=== PATIENT | female | born 1955 | race Caucasian/White ===

== ENCOUNTER 2019-10-09 15:36 | Emergency (ER) | payer MEDICARE, MEDICAID ==
[~2019-10-09] VITALS: Ht 172.7 cm; Wt 100.3 kg
[~2019-10-09 15:36] MED LIST: FOLI1TAB16 PO; PANT-47 PO; PARO40TA PO; SUCR1TAB34 PO; THI100T PO; TRAZ-251 PO
[2019-10-09] MEDS ORDERED: ondansetron/PF 4mg/2ml inj IV ONE (16:20)
[2019-10-09] MEDS ORDERED: normal saline 1000ML IV soln IVB ONE (16:20)
[2019-10-09] MEDS ORDERED: folic acid 1mg/0.2ml inj IV ONE (16:25)
[2019-10-09] MEDS ORDERED: thiamine 100mg/ml 2ml inj. IV ONE (16:25)
[2019-10-09 16:46] LABS: BASOPHILS # (AUTO) 0.1 X10'3 (0-0.2); BASOPHILS % (AUTO) 1.4 % (0-1); EOSINOPHILS # (AUTO) 0.1 X10'3 (0-0.9); EOSINOPHILS % (AUTO) 1.9 % (0-6); HEMATOCRIT 47.4 % (35.0-45.0); HEMOGLOBIN 16.3 g/dl (12.0-16.0); LYMPHOCYTES # (AUTO) 2.4 X10'3 (1.1-4.8); LYMPHOCYTES % (AUTO) 44.3 % (21-51); MEAN CORPUSCULAR HEMOGLOBIN 32.1 PG (27.0-31.0); MEAN CORPUSCULAR HGB CONC 34.4 g/dL (33.0-36.5); MEAN CORPUSCULAR VOLUME 93.2 FL (78-98); MEAN PLATELET VOLUME 7.4 FL (7.4-10.4); MONOCYTES # (AUTO) 0.4 X10'3 (0-0.9); MONOCYTES % (AUTO) 7.2 % (2-12); NEUTROPHILS # (AUTO) 2.4 X10'3 (1.8-7.7); NEUTROPHILS % (AUTO) 45.2 % (42-75); PLATELET COUNT 241 X10'3 (140-440); RED BLOOD COUNT 5.08 X10'6 (4.20-5.60); RED CELL DISTRIBUTION WIDTH 13.3 % (11.5-14.5); WHITE BLOOD COUNT 5.3 X10'3 (4.5-11.0)
[2019-10-09 16:53] LABS: ALANINE AMINOTRANSFERASE 211 U/L (12-78); ALBUMIN 4.2 G/DL (3.4-5.0); ALBUMIN/GLOBULIN RATIO 1.2 (1.1-1.5); ALKALINE PHOSPHATASE 112 IU/L (46-116); ANION GAP 14 (8-16); ASPARTATE AMINO TRANSFERASE 137 U/L (10-37); BILIRUBIN,TOTAL 0.3 MG/DL (0.1-1.0); BLOOD UREA NITROGEN 9 MG/DL (7-18); BUN/CREATININE RATIO 10.6 (6.6-38.0); CHLORIDE 104 MMOL/L (99-107); CREATININE 0.85 MG/DL (0.40-0.90); GLUCOSE 97 MG/DL (70-104); LIPASE 283 U/L (73-393); POTASSIUM 4.3 MMOL/L (3.5-5.1); SODIUM 141 MMOL/L (135-145); TOTAL CARBON DIOXIDE 23.5 MMOL/L (24-32); TOTAL PROTEIN 7.6 G/DL (6.4-8.2); eGFR 68 ML/MIN
[2019-10-09 16:56] LABS: CALCIUM 9.5 MG/DL (8.5-10.1)
[2019-10-09 17:27] LABS: URINE AMPHETAMINE SCREEN NEGATIVE (Neg); URINE BARBITUATE SCREEN NEGATIVE (Neg); URINE BENZODIAZEPINES SCREEN NEGATIVE (Neg); URINE CANNABINOID SCREEN NEGATIVE (Neg); URINE COCAINE SCREEN NEGATIVE (Neg); URINE METHADONE SCREEN NEGATIVE (Neg); URINE OPIATE SCREEN NEGATIVE (Neg); URINE PHENCYCLIDINE SCREEN NEGATIVE (Neg)
[2019-10-09 18:13] VITALS: BP 155/82
== END 2019-10-09 18:14 | disposition home or self-care (01) ==
LOC: ER 15:37
DX: F10.129 Alcohol abuse with intoxication, unspecified (principal); R10.817 Generalized abdominal tenderness; F41.9 Anxiety disorder, unspecified; I10 Essential (primary) hypertension; G89.29 Other chronic pain; Z90.89 Acquired absence of other organs; Z60.2 Problems related to living alone; Z88.5 Allergy status to narcotic agent; Z79.899 Other long term (current) drug therapy
CPT/HCPCS: 36415; 80053; 80305; 80320; 83690; 85025; 96374; 96375; 99284; J2405; J3411; J3490; J7030

== ENCOUNTER 2020-01-04 16:23 | Emergency (ER) | payer MEDICARE, MEDICAID ==
[~2020-01-04] VITALS: Ht 172.7 cm; Wt 95.5 kg
[2020-01-04 16:27] VITALS: BP 149/83
[2020-01-04] MEDS ORDERED: traMADol 50MG tablet PO ONE (17:35)
[2020-01-04] MEDS ORDERED: HYDR-4383 PO (18:23)
[2020-01-04] MEDS ORDERED: ONDA4TAB6 PO (18:23)
== END 2020-01-04 18:33 | disposition home or self-care (01) ==
LOC: ER 16:24
DX: S22.31XA Fracture of one rib, right side, initial encounter for closed fracture (principal); S32.029A Unspecified fracture of second lumbar vertebra, initial encounter for closed fracture; I10 Essential (primary) hypertension; F41.9 Anxiety disorder, unspecified; G89.29 Other chronic pain; Z98.890 Other specified postprocedural states; Z72.89 Other problems related to lifestyle; Z88.5 Allergy status to narcotic agent; Z88.8 Allergy status to other drugs, medicaments and biological substances; Z79.899 Other long term (current) drug therapy; W18.11XA Fall from or off toilet without subsequent striking against object, initial encounter; Y93.89 Activity, other specified; Y92.89 Other specified places as the place of occurrence of the external cause; Y99.8 Other external cause status
CPT/HCPCS: 70450; 71250; 72128; 99285

== ENCOUNTER 2020-01-08 15:16 | Emergency (ER) | payer MEDICARE, MEDICAID ==
[~2020-01-08] VITALS: Ht 172.7 cm; Wt 95.5 kg
[~2020-01-08 15:16] MED LIST changes: +HYDR-4383 PO; +ONDA4TAB6 PO
[2020-01-08] MEDS ORDERED: ONDA4TAB6 PO (16:10)
[2020-01-08] MEDS ORDERED: HYDR-4383 PO (16:10)
[2020-01-08 16:19] VITALS: BP 150/90
== END 2020-01-08 16:24 | disposition home or self-care (01) ==
LOC: ER 15:17
DX: Z76.0 Encounter for issue of repeat prescription (principal); S22.41XD Multiple fractures of ribs, right side, subsequent encounter for fracture with routine healing; I10 Essential (primary) hypertension; G89.29 Other chronic pain; F41.9 Anxiety disorder, unspecified; Z90.49 Acquired absence of other specified parts of digestive tract; F10.20 Alcohol dependence, uncomplicated; Z60.2 Problems related to living alone; Z88.5 Allergy status to narcotic agent; Z79.899 Other long term (current) drug therapy; Y90.0 Blood alcohol level of less than 20 mg/100 ml
CPT/HCPCS: 99284

== ENCOUNTER 2021-10-06 09:11 | Inpatient (IN) | payer MEDICARE, MEDICAID ==
[~2021-10-06] VITALS: Ht 172.7 cm; Wt 96.4 kg
[~2021-10-06 09:11] MED LIST changes: -FOLI1TAB16 PO; +FOLI1TAB27 PO; +rocuronium 10mg/ml inj IV ONE; +sod chloride 0.9% 10ml flush syringe IV ONE
[2021-10-06] MEDS ORDERED: ipratropium/albuterol 3ml nebule NEB ONE (09:25)
[2021-10-06] MEDS ORDERED: methylPREDNISolone sod succ 125mg/2ml vial IV ONE (09:25)
[2021-10-06] MEDS ORDERED: cefTRIAXone 1g/NS 100ml IVPB 100 ML IV ONE (10:00)
[2021-10-06] MEDS ORDERED: doxycycline inj 100 MG in normal saline 100ml IV soln 100 ML IV ONE (10:00)
[2021-10-06] MEDS ORDERED: normal saline 1000ml 1,000 ML IV ONE ×2 (10:00→10:30)
[2021-10-06] MEDS ORDERED: rocuronium 10mg/ml inj IV ONE (10:00)
[2021-10-06 10:09] LABS: BASOPHILS % (AUTO) 0.3 % (0-1); EOSINOPHILS % (AUTO) 0 % (0-6); HEMATOCRIT 41.4 % (35.0-45.0); HEMOGLOBIN 14.5 g/dl (12.0-16.0); LYMPHOCYTES # (AUTO) 0.2 X10'3 (1.1-4.8); LYMPHOCYTES % (AUTO) 4.7 % (21-51); MEAN CORPUSCULAR HEMOGLOBIN 32.1 PG (27.0-31.0); MEAN CORPUSCULAR HGB CONC 34.9 g/dL (33.0-36.5); MEAN PLATELET VOLUME 8.5 FL (7.4-10.4); MONOCYTES # (AUTO) 0.5 X10'3 (0-0.9); MONOCYTES % (AUTO) 10.8 % (2-12); NEUTROPHILS # (AUTO) 3.9 X10'3 (1.8-7.7); NEUTROPHILS % (AUTO) 84.2 % (42-75); PLATELET COUNT 160 X10'3 (140-440); RED CELL DISTRIBUTION WIDTH 12.1 % (11.5-14.5); WHITE BLOOD COUNT 4.6 X10'3 (4.5-11.0)
[2021-10-06 10:28] LABS: ALANINE AMINOTRANSFERASE 61 U/L (12-78); ALBUMIN 2.9 G/DL (3.4-5.0); ALBUMIN/GLOBULIN RATIO 0.8 (1.1-1.5); ALKALINE PHOSPHATASE 78 IU/L (46-116); ANION GAP 15 (8-16); ASPARTATE AMINO TRANSFERASE 41 U/L (10-37); BILIRUBIN,TOTAL 0.6 MG/DL (0.1-1.0); BLOOD UREA NITROGEN 20 MG/DL (7-18); BUN/CREATININE RATIO 13.5 (6.6-38.0); CALCIUM 8.3 MG/DL (8.5-10.1); CHLORIDE 94 MMOL/L (99-107); CREATININE 1.48 MG/DL (0.40-0.90); GLUCOSE 189 MG/DL (70-104); POTASSIUM 3.7 MMOL/L (3.5-5.1); SODIUM 131 MMOL/L (135-145); TOTAL CARBON DIOXIDE 21.8 MMOL/L (24-32); TOTAL PROTEIN 6.5 G/DL (6.4-8.2); eGFR 35 ML/MIN
[2021-10-06] MEDS ORDERED: acetaminophen 325mg tablet PO ONE (10:30)
[2021-10-06] MEDS ORDERED: ipratropium/albuterol 3ml nebule NEB SCH ×2 (11:00→15:00)
[2021-10-06] MEDS ORDERED: morphine 4 MG/ML inj SYRINge IV ONE (11:45)
[2021-10-06] MEDS: ipratropium/albuterol 3ml nebule NEB SCH ×4 (12:25→23:14)
[2021-10-06] MEDS ORDERED: AZIL1TAB2 PO (12:44)
[2021-10-06] MEDS ORDERED: DULO60CA65 PO (12:44)
[2021-10-06] MEDS ORDERED: AMLO5TAB16 PO (12:44)
[2021-10-06] MEDS ORDERED: CLON0.1T2 PO (12:44)
[2021-10-06] MEDS ORDERED: TRAZ-251 PO (12:44)
[2021-10-06] MEDS ORDERED: PANT40TA54 PO (12:44)
[2021-10-06] MEDS ORDERED: FLO110IN IH (12:44)
[2021-10-06] MEDS ORDERED: magnesium 2GM in 50ml NS 50 ML IV PRN (14:45)
[2021-10-06] MEDS ORDERED: magnesium 4gm in 100ml NS 100 ML IV PRN (14:45)
[2021-10-06] MEDS ORDERED: potassium CL 10mEq/100ml bag 100 ML IV PRN (14:45)
[2021-10-06] MEDS ORDERED: potassium Cl 20 mEq SR tablet PO PRN ×2 (14:45)
[2021-10-06] MEDS ORDERED: normal saline 1000ml 1,000 ML IV SCH (14:45)
[2021-10-06] MEDS ORDERED: acetaminophen 325mg tablet PO PRN (14:45)
[2021-10-06] MEDS ORDERED: magnesium Cl slow-release 64mg tablet PO PRN (14:45)
[2021-10-06] MEDS: benzonatate 100mg capsule PO SCH (15:30)
[2021-10-06 15:42] LABS: MAGNESIUM 0.9 MG/DL (1.5-2.4)
--- NOTE | 2021-10-06 15:53 | NUR ---
CRITICAL MAGNESIUM LEVEL CALLED TO ANG JOHNSON AT 1542. PER EMR, LAB RESULTED AT 0957. LAB WILL RE-DRAW MAG PRIOR TO STARTING MAG REPLACEMENT.
--- NOTE | 2021-10-06 15:55 | NUR ---
Brandi fleming in [facility] - 10/06/21 at 1557 by JOSSELIN attempted to call report to madalyn hyde awaiting call back at this time
[2021-10-06 16:39] LABS: MAGNESIUM 1.2 MG/DL (1.5-2.4); POTASSIUM 3.5 MMOL/L (3.5-5.1)
[2021-10-06] MEDS ORDERED: HYDROcodone/acetaminophen 5mg/325mg tablet PO ONE (17:55)
[2021-10-06] MEDS: methylPREDNISolone sod succ 125mg/2ml vial IV SCH (18:02)
[2021-10-06] MEDS: K and/or MAG REPLACEMENT MC SCH (20:00)
[2021-10-06] MEDS ORDERED: doxycycline inj 100 MG in normal saline 100ml IV soln 100 ML IV SCH (20:00)
[2021-10-06] MEDS: heparin, porcine 5000 units/ml vial SQ SCH (21:37)
[2021-10-06] MEDS: docusate sod 100mg capsule PO SCH (21:38)
--- NOTE | 2021-10-07 01:38 | NUR ---
PLACED ON HOSPITAL BED FOR COMFORT
[2021-10-07] MEDS ORDERED: traZODone 50mg tablet PO ONE (03:10)
[2021-10-07] MEDS ORDERED: duloxetine 30mg CAPSULE.DR PO ONE (03:10)
[2021-10-07] MEDS: ipratropium/albuterol 3ml nebule NEB SCH ×5 (03:18→19:51)
[2021-10-07] MEDS: K and/or MAG REPLACEMENT MC SCH ×2 (08:00→20:00)
[2021-10-07] MEDS ORDERED: azithromycin/NS 500mg/250ml 250 ML IV SCH (08:00)
[2021-10-07] MEDS ORDERED: cefTRIAXone 1g/NS 100ml IVPB 100 ML IV SCH ×2 (08:00→16:45)
[2021-10-07 08:36] LABS: BASOPHILS % (AUTO) 0.1 % (0-1); EOSINOPHILS % (AUTO) 0 % (0-6); HEMATOCRIT 41.8 % (35.0-45.0); HEMOGLOBIN 14.5 g/dl (12.0-16.0); LYMPHOCYTES # (AUTO) 0.3 X10'3 (1.1-4.8); LYMPHOCYTES % (AUTO) 9.8 % (21-51); MEAN CORPUSCULAR HEMOGLOBIN 32.3 PG (27.0-31.0); MEAN CORPUSCULAR HGB CONC 34.6 g/dL (33.0-36.5); MEAN CORPUSCULAR VOLUME 93.4 FL (78-98); MEAN PLATELET VOLUME 8.9 FL (7.4-10.4); MONOCYTES # (AUTO) 0.2 X10'3 (0-0.9); MONOCYTES % (AUTO) 7.5 % (2-12); NEUTROPHILS # (AUTO) 2.6 X10'3 (1.8-7.7); NEUTROPHILS % (AUTO) 82.6 % (42-75); PLATELET COUNT 156 X10'3 (140-440); RED BLOOD COUNT 4.48 X10'6 (4.20-5.60); RED CELL DISTRIBUTION WIDTH 12.5 % (11.5-14.5); WHITE BLOOD COUNT 3.2 X10'3 (4.5-11.0)
[2021-10-07 08:49] LABS: ALBUMIN 2.8 G/DL (3.4-5.0); ANION GAP 15 (8-16); BLOOD UREA NITROGEN 17 MG/DL (7-18); BUN/CREATININE RATIO 11.4 (6.6-38.0); CALCIUM 8.6 MG/DL (8.5-10.1); CHLORIDE 91 MMOL/L (99-107); CREATININE 1.49 MG/DL (0.40-0.90); GLUCOSE 164 MG/DL (70-104); MAGNESIUM 2.3 MG/DL (1.5-2.4); POTASSIUM 3.2 MMOL/L (3.5-5.1); SODIUM 126 MMOL/L (135-145); TOTAL CARBON DIOXIDE 20.5 MMOL/L (24-32); eGFR 35 ML/MIN
[2021-10-07 09:19] LABS: PLATELET ESTIMATE NORMAL; TOTAL CELLS COUNTED 100
[2021-10-07] MEDS: benzonatate 100mg capsule PO SCH (09:19)
[2021-10-07] MEDS: methylPREDNISolone sod succ 125mg/2ml vial IV SCH ×2 (09:20→17:00)
[2021-10-07] MEDS: heparin, porcine 5000 units/ml vial SQ SCH ×2 (09:20→20:10)
[2021-10-07] MEDS: docusate sod 100mg capsule PO SCH ×2 (09:20→20:00)
--- NOTE | 2021-10-07 10:54 | NUR ---
PT Ophelia from ED is c/o anxiety, requesting anxiety meds. Also is asking for a nicotine patch. Jo Boyce RN [phone]
[2021-10-07 11:00] VITALS: BP 149/93
[2021-10-07] MEDS ORDERED: LORazepam 2 mg/ml vial IV ONE ×4 (11:10→23:45)
--- NOTE | 2021-10-07 13:36 | NUR ---
Pt Wesley continues to be tachypnic and tachycardic Sats on 6L 88%....She states the 0.5 of Ativan barely touched her anxiety. paged to please come ressess Addendum: 10/07/21 at 1339 by Jo Camacho RN received call back from Dr. Bey, orders received
[2021-10-07 15:00] VITALS: BP 156/94
[2021-10-07 15:32] LABS: ABG BASE EXCESS -2.2 mmol/L (-2.0-2.0); ABG HCO3 20.2 mmol/L (22.0-26.0); ABG PCO2 (T) 28.5 mmHg (32.0-45.0); ABG PO2 (T) 49.4 mmHg (75.0-100.0); ALLEN'S TEST POSITIVE; FCOHb 0.3 % (0.0-3.9); FMetHb 0.1 % (0.0-1.5); FO2Hb 87.6 % (94-97); PATIENT TEMPERATURE 36.7; TOTAL HEMOGLOBIN 14.9 G/dl (12.0-16.0)
[2021-10-07] MEDS ORDERED: piperacillin/tazo 3.375gm/50ml 50 ML IV SCH (16:18)
[2021-10-07] MEDS ORDERED: vancomycin 1,750 MG in NS 350ml IV soln IV ONE (16:45)
[2021-10-07] MEDS ORDERED: furosemide 40mg/4ml inj IV ONE (16:45)
[2021-10-07] MEDS ORDERED: pneumococcal 23-VAL P-sac vacc 25 mcg/0.5ml vial IMVAC ONE (16:50)
[2021-10-07] MEDS: pantoprazole 40mg Tablet.DR PO SCH ×2 (17:02→17:08)
[2021-10-07] MEDS: amLODIPine 5mg tablet PO SCH ×2 (17:03→17:08)
[2021-10-07] MEDS: nicotine 14mg patch - 24hr TD SCH (17:09)
[2021-10-07 18:00] VITALS: BP 165/88
--- NOTE | 2021-10-07 18:00 | NUR ---
Patient in room U 3018. I have received report from Jo FRY and had the opportunity to ask questions and assume patient care. Addendum: 10/08/21 at 0124 by Tamy Brar RN Amended: Links added.
--- NOTE | 2021-10-07 18:00 | NUR ---
Patient in room U 3018. I have received report from LORENZO FRY and had the opportunity to ask questions and assume patient care. Addendum: 10/07/21 at 1920 by Tamy Brar RN Amended: Links added.
--- NOTE | 2021-10-07 19:20 | NUR ---
Pt. awake A & O x 4 at this time. Pt. sats between 90-91%, 02 at 12 L via HF n/c. Purple discoloration noted to anisha knees and thigh region; pt reports" it happens ofthen not knew."HOB in high fowlers for better breathing. Call light within reach and bed in low position. Remained pt to call with any needs- pt. verbalized understanding. Addendum: 10/07/21 at 1930 by Tamy Brar RN Amended: Links added.
[2021-10-07] MEDS: budesonide 0.5mg/2ml UD nebule IH SCH (19:52)
[2021-10-07] MEDS ORDERED: cloNIDine 0.1 mg tablet PO SCH (20:00)
[2021-10-07] MEDS ORDERED: PERFLUTREN PROTEIN-A MICROSPHR (Optison) 0.22 MG/ML 3ML VIAL IV ONE (20:05)
[2021-10-07] MEDS: traZODone 50mg tablet PO SCH (20:07)
[2021-10-07 20:12] LABS: BASOPHILS % (AUTO) 0.1 % (0-1); EOSINOPHILS % (AUTO) 0 % (0-6); HEMATOCRIT 39.9 % (35.0-45.0); LYMPHOCYTES # (AUTO) 0.3 X10'3 (1.1-4.8); LYMPHOCYTES % (AUTO) 4.6 % (21-51); MEAN CORPUSCULAR HEMOGLOBIN 31.6 PG (27.0-31.0); MEAN CORPUSCULAR VOLUME 90.3 FL (78-98); MEAN PLATELET VOLUME 8.8 FL (7.4-10.4); MONOCYTES # (AUTO) 0.3 X10'3 (0-0.9); MONOCYTES % (AUTO) 4.3 % (2-12); NEUTROPHILS # (AUTO) 5.9 X10'3 (1.8-7.7); PLATELET COUNT 143 X10'3 (140-440); RED BLOOD COUNT 4.42 X10'6 (4.20-5.60); RED CELL DISTRIBUTION WIDTH 12.3 % (11.5-14.5); WHITE BLOOD COUNT 6.5 X10'3 (4.5-11.0)
[2021-10-07 20:16] LABS: ALBUMIN 2.5 G/DL (3.4-5.0); ANION GAP 15 (8-16); BLOOD UREA NITROGEN 16 MG/DL (7-18); BUN/CREATININE RATIO 17.4 (6.6-38.0); CALCIUM 8.3 MG/DL (8.5-10.1); CHLORIDE 87 MMOL/L (99-107); CREATININE 0.92 MG/DL (0.40-0.90); GLUCOSE 154 MG/DL (70-104); POTASSIUM 3.5 MMOL/L (3.5-5.1); SODIUM 122 MMOL/L (135-145); TOTAL CARBON DIOXIDE 20.2 MMOL/L (24-32); eGFR 61 ML/MIN
[2021-10-07 21:38] LABS: ABG HCO3 18.8 mmol/L (22.0-26.0); ABG PCO2 (T) 25.9 mmHg (32.0-45.0); ABG PO2 (T) 75.4 mmHg (75.0-100.0); ALLEN'S TEST POSITIVE; FCOHb 0.1 % (0.0-3.9); FMetHb 0.1 % (0.0-1.5); FO2Hb 95.8 % (94-97); TOTAL HEMOGLOBIN 14.1 G/dl (12.0-16.0)
[2021-10-07 22:00] VITALS: BP 169/90
--- NOTE | 2021-10-07 23:05 | NUR ---
Pt supined, policy and procedure followed, RT at bedside to assist with turning pt. Pt tolerated well. Addendum: 10/09/21 at 0552 by Bailey Summers RN this was 10/08/21
--- NOTE | 2021-10-07 23:15 | NUR ---
Pt's PIV dislodged with catheter intact on observation. Addendum: 10/08/21 at 0717 by Tamy Brar RN Amended: Links added.
[2021-10-07] MEDS ORDERED: diltiazem 5mg/ml 5ml inj. IV ONE (23:40)
--- NOTE | 2021-10-07 23:40 | NUR ---
Pt. up on the bedside commode. Upon assisting pt. off the commode pt's sats dropped to 88% still on the CPAP at fio2 of 80%. Pt. with increased HR 0f 173 and sats between 88-92% and anxious. IV ativan push given as ordered. Notified charge nurse to alert RT while I stayed with the pt. a. RT notified assessing respiratory activities at this time. Notified Dr. Zuluaga who was present at this time; orders received for ativan 1mg i.m stat, cardizem 10mg ivp stat, and cardizem drip 5mg/hr. Administered ativan 1mg IM in (rt deltoid) as ordered. 2350 Dr. Zuluaga at bedside at this time no new orders given at this time.Attempted iv placement x 1 one and multiple time by powerhouse engineer with success. Addendum: 10/08/21 at 0144 by Tamy Brar RN Amended: Links added.
[2021-10-07] MEDS ORDERED: LORazepam 2 mg/ml vial IM ONE (23:55)
[2021-10-08] VITALS (43 sets, daily range): BP systolic 73–148; BP diastolic 28–96
[2021-10-08] MEDS: ipratropium/albuterol 3ml nebule NEB SCH ×7 (00:42→22:40)
--- NOTE | 2021-10-08 01:30 | NUR ---
Problems reprioritized. Patient report given, questions answered & plan of care reviewed with Carleen FRY. Addendum: 10/08/21 at 0209 by Tamy Brar RN Amended: Links added.
[2021-10-08] MEDS: diltiazem-NS 100mg/100ml 100 ML IV SCH ×2 (01:35→19:50)
[2021-10-08] MEDS ORDERED: NORepinephrine 8mg/ 250ml NS 250 ML IV ONE ×2 (02:08→16:25)
--- NOTE | 2021-10-08 02:14 | NUR ---
Patient transfered to ICU, report called earlier, problems reprioritized and updates given to Ortiz FRY. All belongings sent with patient. Patient transported in her bed with the assist of tele, 2 RN's and Respiratory.
[2021-10-08] MEDS ORDERED: FENTANYL CITRATE/D5W/PF 100 ML IV PRN (02:35)
[2021-10-08] MEDS ORDERED: vasopressin inj. 40 UNIT in dextrose 5%-water 50ml 38 ML IV SCH ×2 (03:05→03:40)
[2021-10-08] MEDS: FENTANYL-0.9 % NACL/PF 100 ML IV PRN ×4 (03:28→20:21)
[2021-10-08] MEDS: midazolam 100mg in NS 100ml 100 ML IV PRN ×3 (03:28→20:22)
[2021-10-08 03:31] LABS: ABG BASE EXCESS -8.5 mmol/L (-2.0-2.0); ABG HCO3 20.4 mmol/L (22.0-26.0); ABG PO2 (T) 43.7 mmHg (75.0-100.0); FCOHb 0.1 % (0.0-3.9); FMetHb 0.2 % (0.0-1.5); FO2Hb 75.8 % (94-97); PATIENT TEMPERATURE 35.2; PEEP 8 cm H2O; RESPIRATORY RATE 18 b/min; TIDAL VOLUME 450 mL; TOTAL HEMOGLOBIN 13.5 G/dl (12.0-16.0)
[2021-10-08 03:36] LABS: OXYGEN SATURATION (MIXED VEN) 42.5 % (60-80); PO2 MIXED VENOUS (TEMP COR) 26.2 mmHg (35-46)
[2021-10-08] MEDS ORDERED: ringers solution, lacted 1,000 ML IV ONE (03:45)
[2021-10-08 03:55] LABS: ALANINE AMINOTRANSFERASE 54 U/L (12-78); ALBUMIN 2.3 G/DL (3.4-5.0); ALBUMIN/GLOBULIN RATIO 0.5 (1.1-1.5); ALKALINE PHOSPHATASE 63 IU/L (46-116); ANION GAP 8 (8-16); ASPARTATE AMINO TRANSFERASE 102 U/L (10-37); BILIRUBIN,TOTAL 0.5 MG/DL (0.1-1.0); BLOOD UREA NITROGEN 24 MG/DL (7-18); BUN/CREATININE RATIO 13.6 (6.6-38.0); CALCIUM 8.1 MG/DL (8.5-10.1); CHLORIDE 87 MMOL/L (99-107); CREATININE 1.76 MG/DL (0.40-0.90); GLUCOSE 191 MG/DL (70-104); MAGNESIUM 2.1 MG/DL (1.5-2.4); POTASSIUM 4.1 MMOL/L (3.5-5.1); TOTAL CARBON DIOXIDE 22.9 MMOL/L (24-32); TOTAL PROTEIN 6.8 G/DL (6.4-8.2); eGFR 29 ML/MIN
[2021-10-08 03:56] LABS: CREATINE KINASE 4670 U/L (26-192)
[2021-10-08 03:59] LABS: SODIUM 118 MMOL/L (135-145)
[2021-10-08] MEDS ORDERED: heparin 10,000 units/1 ML INJ IV ONE ×2 (04:00→04:25)
[2021-10-08] MEDS ORDERED: heparin 10,000 units/1 ML INJ IV PRN ×2 (04:00→04:25)
[2021-10-08] MEDS ORDERED: heparin 25,000 UNIT/250ml bag 250 ML IV SCH ×2 (04:00→04:25)
[2021-10-08] MEDS: epiNEPHrine inj 5 MG in normal saline 250ml IV soln 245 ML IV SCH ×3 (04:15→21:43)
[2021-10-08 04:34] LABS: BASOPHILS % (AUTO) 0.1 % (0-1); EOSINOPHILS % (AUTO) 0.1 % (0-6); HEMATOCRIT 38.1 % (35.0-45.0); HEMOGLOBIN 13.2 g/dl (12.0-16.0); LYMPHOCYTES # (AUTO) 0.2 X10'3 (1.1-4.8); LYMPHOCYTES % (AUTO) 2.9 % (21-51); MEAN CORPUSCULAR HEMOGLOBIN 32.1 PG (27.0-31.0); MEAN CORPUSCULAR HGB CONC 34.6 g/dL (33.0-36.5); MEAN CORPUSCULAR VOLUME 92.6 FL (78-98); MEAN PLATELET VOLUME 9.7 FL (7.4-10.4); MONOCYTES # (AUTO) 0.3 X10'3 (0-0.9); MONOCYTES % (AUTO) 3.8 % (2-12); NEUTROPHILS # (AUTO) 7.5 X10'3 (1.8-7.7); NEUTROPHILS % (AUTO) 93.1 % (42-75); PLATELET COUNT 174 X10'3 (140-440); RED BLOOD COUNT 4.11 X10'6 (4.20-5.60); RED CELL DISTRIBUTION WIDTH 12.6 % (11.5-14.5)
--- NOTE | 2021-10-08 06:37 | NUR ---
65 years old female, admitted 10/06/2021, day 2 of hospitalization, full code, NDA, no isolation, no restraints. This patient presented to hospital for evaluation of shortness of breath which started 4 days prior. Patient states she has been getting worse. EMS found her O2 sat to be in the 80s and she was placed on 6 L of oxygen which improved her O2 sat to 94. She has been having cough mostly nonproductive, fever and chills. Patient has been using her albuterol inhaler at home without much relief. She has been nauseous but has not had any vomiting. Patient states his daughter has been sick as well but they have been tested negative for COVID-19.Denies having any palpitations orthopnea PND or ankle edema.Denies having any focal neurological symptoms or sign Denies having any urinary symptoms including hematuria dysuria frequency urgency. Denies having any melena or bright red blood per rectum. On evaluation in the emergency room patient is noted to have a significant left pneumonia. She is being admitted for further treatment of the same. 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 Pt is afebrile, no commands, no sedation. HR 156 ST, EKG shows Acute IL, Heparin gtt started at 1800 units. BP Supported on Vasopressin at .04 units, and Levophed at .1 mcgs. Pt had EPI infusing at .1 mcg, had 20 beat run VT, EPI stopped. IVF Infusing via right groin QLC. LAC #20 placed in ICU f/p. #22 RH f/p. Intubated with 7.0 ET24 CM, AC/VC rate 28, TV 379+/-, FIO2 100% PEEP 12. Grossly coarse, diminished, equal, symmetrical, Tachypneic. Hypoactive bowel sounds, round abdomen, NGT placed Right nare, 800 ml's of gastric content removed, color dark green to brown. NPO. Martinez placed #18 clear yellow urine. Bladder non distended. Skin intact, grossly Mottled, pt not well kept. Attempted to contact family with no success. Family still needs to be contacted. Pt was also bolused with 2L LR. Pt remains safe. Report given to Day RN.
--- NOTE | 2021-10-08 06:59 | NUR ---
Patient in room ICU 2041. I have received report from Ortiz FRY and had the opportunity to ask questions and assume patient care.
[2021-10-08] MEDS: methylPREDNISolone sod succ 125mg/2ml vial IV SCH ×2 (07:00→17:22)
[2021-10-08 07:15] LABS: TOTAL CELLS COUNTED 100
[2021-10-08] MEDS: budesonide 0.5mg/2ml UD nebule IH SCH (07:15)
[2021-10-08 07:17] LABS: PLATELET ESTIMATE NORMAL
--- NOTE | 2021-10-08 07:47 | NUR ---
Initial: Pt admitted w/ acute respiratory failure, PNA, COPD w/ exacerbation and sepsis secondary to PNA per EMR, is now intubated and sedated. Has NGT to suction per documentation. If pt to remain intubated and within POC, recommend initiation of nutrition support once medically appropriate. LBM 10/07. Noted Carlos Manuel of 10 though no wounds documented. Ramirez continue to monitor. Recs: 1) IF TF, continuous TF using Vital HP at 65ml/hr goal to provide 1560ml volume, 1560kcals, 137g protein, 1304ml free water 2) IF TF, no additional water flush, serum Na 118 3) IF TF; PALB Q / 4) Daily wts 5) Bowel care per rx 6) Upon extubation advance to Regular diet Addendum: 10/08/21 at [address] Amended: Links added.
[2021-10-08] MEDS: duloxetine 30mg CAPSULE.DR PO SCH (08:00)
[2021-10-08] MEDS: nicotine 14mg patch - 24hr TD SCH (08:00)
[2021-10-08] MEDS: docusate sod 100mg capsule PO SCH ×2 (08:00→20:08)
[2021-10-08] MEDS: benzonatate 100mg capsule PO SCH (08:00)
[2021-10-08 08:06] LABS: ABG BASE EXCESS -9.1 mmol/L (-2.0-2.0); ABG HCO3 17.9 mmol/L (22.0-26.0); ABG OXYGEN SATURATION 93.9 % (94-97); ABG PCO2 (T) 44.6 mmHg (32.0-45.0); ABG PO2 (T) 81.2 mmHg (75.0-100.0); ALLEN'S TEST POSITIVE; FCOHb 0.3 % (0.0-3.9); FMetHb 0.3 % (0.0-1.5); FO2Hb 93.3 % (94-97); PATIENT TEMPERATURE 37.8; PEEP 14 cm H2O; RESPIRATORY RATE 28 b/min; TIDAL VOLUME 375 mL; TOTAL HEMOGLOBIN 13.7 G/dl (12.0-16.0)
[2021-10-08] MEDS ORDERED: hydrocortisone sod succ/PF 250mg/2ml inj. IV ONE (08:15)
[2021-10-08] MEDS ORDERED: hydrocortisone sod succ/PF 100mg/2ml inj. IV ONE (08:20)
[2021-10-08] MEDS: K and/or MAG REPLACEMENT MC SCH ×2 (08:32→20:00)
[2021-10-08] MEDS ORDERED: furosemide 10 MG/1 ML 10ml inj IV ONE (09:15)
[2021-10-08 10:56] LABS: APTT 82 SECONDS (22-32)
--- NOTE | 2021-10-08 11:38 | NUR ---
Patients brother emma called for an update [phone], he would like to speak with the physician, informed him i will give his name and number to our physician
[2021-10-08] MEDS: heparin 25,000 UNIT/250ml bag 250 ML IV SCH (14:55)
[2021-10-08] MEDS ORDERED: glucagon, human recombinant 1mg kit SUBCUT PRN (16:55)
[2021-10-08] MEDS ORDERED: dextrose 50%-water 50ml dispensing syringe IV PRN ×2 (16:55)
[2021-10-08] MEDS ORDERED: MESSAGE TO PHARMACY PO ONE (16:55)
[2021-10-08] MEDS ORDERED: DEXTROSE 15 GM of carb/4 tabs (each vial/BOTTLE has 4 tablets) PO PRN ×2 (16:55)
[2021-10-08] MEDS ORDERED: vancomycin/NS 1 GM ADD-VANTAGE 250 ML IV SCH (17:00)
--- NOTE | 2021-10-08 18:16 | NUR ---
Problems reprioritized. Patient report given, questions answered & plan of care reviewed with Edil FRY.
[2021-10-08] MEDS ORDERED: propofol 1000mg/100ml bottle 100 ML IV SCH ×2 (18:35→18:47)
--- NOTE | 2021-10-08 18:35 | NUR ---
65 year old female admitted 06 October 2021, she is a full code no NKDA, she is currently proned in bed, fentanyl, versed in place for pain and sedation control. Levophed drip in place via CVL to keep map greater then 65. Skin is cool and dry, feet are mottled bilat. Ventilator in place tv 375, 70 Addendum: 10/09/21 at 0545 by Bailey Summers RN 70 fio2 14 peep. pt is overbreathing the ventilator, spoke to Dr Gerber who ordered a nimbex drip to be started, keep RASS of -4.
[2021-10-08] MEDS ORDERED: VANCOMYCIN 750MG IV in NS 250 ML IV SCH (20:00)
[2021-10-08] MEDS: CISATRACURIUM BESYLATE IV PRN (20:07)
[2021-10-08] MEDS: NS IV PRN (20:07)
[2021-10-08] MEDS: traZODone 50mg tablet PO SCH (21:00)
[2021-10-09] VITALS (34 sets, daily range): BP systolic 81–126; BP diastolic 41–75
[2021-10-09] MEDS: heparin 25,000 UNIT/250ml bag 250 ML IV SCH ×2 (01:23→18:45)
[2021-10-09] MEDS: insulin Lispro (HumaLOG) vial - multi-dose SQ SCH ×2 (01:24→08:38)
[2021-10-09] MEDS: FENTANYL-0.9 % NACL/PF 100 ML IV PRN ×3 (01:25→10:10)
[2021-10-09] MEDS: midazolam 100mg in NS 100ml 100 ML IV PRN ×3 (01:25→20:00)
[2021-10-09 01:48] LABS: BASOPHILS % (AUTO) 0.3 % (0-1); EOSINOPHILS % (AUTO) 0 % (0-6); HEMATOCRIT 34.3 % (35.0-45.0); HEMOGLOBIN 11.8 g/dl (12.0-16.0); LYMPHOCYTES # (AUTO) 0.5 X10'3 (1.1-4.8); LYMPHOCYTES % (AUTO) 4.2 % (21-51); MEAN CORPUSCULAR HGB CONC 34.4 g/dL (33.0-36.5); MEAN CORPUSCULAR VOLUME 93.1 FL (78-98); MONOCYTES # (AUTO) 0.9 X10'3 (0-0.9); MONOCYTES % (AUTO) 7.4 % (2-12); NEUTROPHILS % (AUTO) 88.1 % (42-75); PLATELET COUNT 183 X10'3 (140-440); RED BLOOD COUNT 3.69 X10'6 (4.20-5.60); RED CELL DISTRIBUTION WIDTH 12.4 % (11.5-14.5); WHITE BLOOD COUNT 12.5 X10'3 (4.5-11.0)
[2021-10-09] MEDS: ipratropium/albuterol 3ml nebule NEB SCH ×6 (02:16→22:45)
[2021-10-09] MEDS ORDERED: NORepinephrine 8mg/ 250ml NS 250 ML IV ONE ×2 (02:32→07:57)
[2021-10-09 02:37] LABS: ABG BASE EXCESS -10.9 mmol/L (-2.0-2.0); ABG HCO3 16.3 mmol/L (22.0-26.0); ABG OXYGEN SATURATION 95.5 % (94-97); ABG PCO2 (T) 41.4 mmHg (32.0-45.0); ALLEN'S TEST Modified; FCOHb 0.3 % (0.0-3.9); FMetHb 0.3 % (0.0-1.5); FO2Hb 94.9 % (94-97); PATIENT TEMPERATURE 37.3; PEEP 14 cm H2O; RESPIRATORY RATE 28 b/min; TIDAL VOLUME 375 mL; TOTAL HEMOGLOBIN 12.9 G/dl (12.0-16.0)
[2021-10-09 03:32] LABS: PLATELET ESTIMATE NORMAL; TOTAL CELLS COUNTED 100
[2021-10-09 03:35] LABS: ALANINE AMINOTRANSFERASE 151 U/L (12-78); ALBUMIN 1.9 G/DL (3.4-5.0); ALBUMIN/GLOBULIN RATIO 0.5 (1.1-1.5); ALKALINE PHOSPHATASE 78 IU/L (46-116); ANION GAP 15 (8-16); ASPARTATE AMINO TRANSFERASE 220 U/L (10-37); BILIRUBIN,TOTAL 0.4 MG/DL (0.1-1.0); BLOOD UREA NITROGEN 50 MG/DL (7-18); BUN/CREATININE RATIO 16.9 (6.6-38.0); CALCIUM 7.5 MG/DL (8.5-10.1); CHLORIDE 90 MMOL/L (99-107); CREATININE 2.96 MG/DL (0.40-0.90); GLUCOSE 209 MG/DL (70-104); MAGNESIUM 2.2 MG/DL (1.5-2.4); PHOSPHORUS 6.9 MG/DL (2.3-4.5); POTASSIUM 3.8 MMOL/L (3.5-5.1); SODIUM 124 MMOL/L (135-145); TOTAL CARBON DIOXIDE 18.8 MMOL/L (24-32); TOTAL PROTEIN 5.8 G/DL (6.4-8.2); TRIGLYCERIDES 254 MG/DL (20-135); eGFR 16 ML/MIN
[2021-10-09 03:36] LABS: HEMOGLOBIN A1C 6.5 % (4.5-6.2)
[2021-10-09] MEDS: NS IV PRN (05:56)
[2021-10-09] MEDS: CISATRACURIUM BESYLATE IV PRN (05:56)
--- NOTE | 2021-10-09 06:00 | NUR ---
Patient in room ICU 2041. I have received report from Devorah FRY and had the opportunity to ask questions and assume patient care.
--- NOTE | 2021-10-09 06:15 | NUR ---
report given to rec rn plan of care reviewed
[2021-10-09] MEDS: insulin glargine (Lantus) pen - multi-dose SQ SCH ×2 (07:30→21:14)
[2021-10-09] MEDS: epiNEPHrine inj 5 MG in normal saline 250ml IV soln 245 ML IV SCH (07:32)
[2021-10-09] MEDS: docusate sod 100mg capsule PO SCH ×2 (07:32→20:00)
[2021-10-09] MEDS ORDERED: vancomycin/NS 1 GM ADD-VANTAGE 250 ML IV PRN (07:32)
[2021-10-09] MEDS: duloxetine 30mg CAPSULE.DR PO SCH (07:32)
[2021-10-09] MEDS: pantoprazole 40mg Tablet.DR PO SCH (07:32)
[2021-10-09] MEDS: benzonatate 100mg capsule PO SCH (07:33)
[2021-10-09] MEDS: K and/or MAG REPLACEMENT MC SCH ×2 (08:00→19:16)
[2021-10-09] MEDS ORDERED: ampicillin/sulbac 3gm/NS 100ml 100 ML IV SCH (08:00)
[2021-10-09] MEDS: pantoprazole 40MG/NS 100ML BAG 100 ML IV SCH (08:03)
[2021-10-09] MEDS: mineral oil/petrolatum ophthal oint EACHEYE SCH ×3 (08:03→20:00)
[2021-10-09] MEDS: methylPREDNISolone sod succ 125mg/2ml vial IV SCH (08:04)
[2021-10-09] MEDS: nicotine 14mg patch - 24hr TD SCH (08:05)
[2021-10-09 08:15] LABS: VANCOMYCIN,RANDOM 11.7 UG/ML
[2021-10-09] MEDS ORDERED: vancomycin/NS 1 GM ADD-VANTAGE 250 ML IV ONE (08:40)
[2021-10-09] MEDS: NORepinephrine 8mg/ 250ml NS 250 ML IV SCH ×2 (10:30→23:59)
--- NOTE | 2021-10-09 10:30 | NUR ---
Discussed with Dr. Odell in rounds- Procalcitonin 126.32, trop 2336. MD ordered to start trickle feeds and wean nimbex, change fentanyl to morphine drip due to interaction with zyvox.
[2021-10-09] MEDS ORDERED: morphine/NS 100mg/100ml bag 100 ML IV SCH (10:55)
--- NOTE | 2021-10-09 11:14 | NUR ---
TF Consult: Pt remains intubated currently proning at 0 degrees w/ trickle TF to start today per union organizer at rounds; pt to remain proned at 0 per MD. Josue NG in place w/ MAP 72-84 during rounds this AM. TF recs below; will monitor for tolerance and need for post-pyloric feeds given proning position. No BM this admit past 3 days though documented as NPO w/ routine colace ordered and NG previously to suction in EMR; bowel regularity likely to improve w/ EN. Noted pt hx daily vodka/alcoholic per EMR; to start on routine thiamine and folic acid per union organizer. Pt to start zyvox today per RN; not appropriate for low tyramine diet ed at this time. Also noted pt A1C 6.5% this AM w/ no prior hx DM or DM meds at home on Solumedrol this admit per EMR; DM DX per physician discretion. Will continue to monitor for further nutrition support adjustment needs pending scaled wt this admit. Recs: 1) Continuous TF using Vital HP at 20ml/hr trickle per union organizer; to provide 480ml volume, 480 kcals, 42g protein, 401ml free water 2) If TF to advance; Continuous TF using Vital HP at 70ml/hr goal to provide 1680ml volume, 1680 kcals, 147g protein, 1404ml free water 3) no additional water flush, serum Na 124 mmol/L this AM 4) PALB Q /; scaled wt this admit subsequent daily wts 5) IF TF to advance; HOB elevated to at least 30 degrees to optimize EN tolerance; consider post-pyloric feeds w/ proning per physician discretion 6) routine bowel care 7) Upon extubation advance to Regular diet; consider carb controlled restriction if PO trends adequate given A1C 6.5% on Solumedrol 8) Possible new DM this admit; A1C 6.5% w/ no prior hx or DM home meds per EMR. Would require DM DX by physician prior to RD visit for education Addendum: 10/09/21 at [address] Amended: Links added.
[2021-10-09] MEDS: morphine/NS 100mg/100ml bag 100 ML IV SCH (11:45)
[2021-10-09] MEDS: linezolid 600mg/300ml PREMIX 300 ML IV SCH ×2 (11:45→20:00)
[2021-10-09] MEDS: thiamine 100mg tablet NG SCH (12:03)
[2021-10-09] MEDS: MULTIVIT-MIN/FERROUS GLUCONATE 9 MG/15 ML LIQUID NG SCH (12:03)
[2021-10-09] MEDS: folic acid 1mg tablet NG SCH (12:03)
[2021-10-09 12:12] LABS: PREALBUMIN 8.4 MG/DL (19-36)
[2021-10-09] MEDS: insulin regular, human U-100 3ml vial - multi-dose SQ SCH ×2 (14:26→21:15)
[2021-10-09 14:49] LABS: ALBUMIN 1.7 G/DL (3.4-5.0); ANION GAP 15 (8-16); BLOOD UREA NITROGEN 61 MG/DL (7-18); BUN/CREATININE RATIO 18.8 (6.6-38.0); CALCIUM 7.3 MG/DL (8.5-10.1); CHLORIDE 91 MMOL/L (99-107); CREATININE 3.25 MG/DL (0.40-0.90); GLUCOSE 252 MG/DL (70-104); POTASSIUM 3.4 MMOL/L (3.5-5.1); SODIUM 124 MMOL/L (135-145); TOTAL CARBON DIOXIDE 17.7 MMOL/L (24-32); eGFR 14 ML/MIN
--- NOTE | 2021-10-09 15:08 | NUR ---
Spoke with Dr. Cantu over the phone and discussed current Creatinine of 3.25 and CO2 17.7, K 3.4. does not want K replaced and ordered bicarb drip.
[2021-10-09] MEDS: sodium bicarbonate (8.4%) inj. 150 MEQ in dextrose 5%-water 1,000 ML IV SCH (15:56)
[2021-10-09] MEDS: methylPREDNISolone sod succ/PF 40mg inj. IV SCH (17:18)
[2021-10-09 17:19] LABS: CLARITY,URINE SLIGHTLY CLOUDY (Clear); COLOR,URINE YELLOW (Yellow); GLUCOSE, URINE 250 mg/dl (Neg); KETONES,URINE NEGATIVE (Neg); LEUKOCYTE ESTERASE ,URINE NEGATIVE (Neg); NITRITES, URINE NEGATIVE (Neg); OCCULT BLOOD,URINE LARGE (Neg); PROTEIN,URINE TRACE mg/dl (Neg); UROBILINOGEN,URINE 0.2 E.U/dL (0.2-1.0)
[2021-10-09 17:57] LABS: UA COLLECTION TYPE FOLEY CATH
[2021-10-09 17:59] LABS: BACTERIA,URINE FEW /HPF (Neg); RBC,URINE 0-2 /HPF (0-2); SQUAMOUS EPITHELIAL CELL,UR NONE SEEN /LPF (FEW); WBC,URINE 0-4 /HPF (0-4)
[2021-10-09 18:00] LABS: AMORPHOUS URATES 1+; COARSE GRANULAR CAST 0-3 /LPF (NEGATIVE); MUCUS STRANDS FEW /LPF (Neg); RENAL CELLS, URINE FEW /HPF
--- NOTE | 2021-10-09 18:31 | NUR ---
Problems reprioritized. Patient report given, questions answered & plan of care reviewed with Ortiz FRY.
[2021-10-09] MEDS: ampicillin/sulbac 3gm/NS 100ml 100 ML IV SCH (19:16)
[2021-10-09] MEDS ORDERED: docusate sodium 100mg/10ml UD cup NG ONE (21:25)
[2021-10-09 22:01] LABS: OSMOLALITY 284 MOSM/K (280-300)
[2021-10-10] VITALS (35 sets, daily range): BP systolic 88–121; BP diastolic 47–73
[2021-10-10] MEDS ORDERED: vasopressin inj. 40 UNIT in dextrose 5%-water 50ml 38 ML IV SCH (00:15)
--- NOTE | 2021-10-10 01:08 | NUR ---
65 years old female, admitted 10/06/2021, day 4 of hospitalization, full code, NDA, no isolation, no restraints. This patient presented to hospital for evaluation of shortness of breath which started 4 days prior. Patient states she has been getting worse. EMS found her O2 sat to be in the 80s and she was placed on 6 L of oxygen which improved her O2 sat to 94. She has been having cough mostly nonproductive, fever and chills. Patient has been using her albuterol inhaler at home without much relief. She has been nauseous but has not had any vomiting. Patient states his daughter has been sick as well but they have been tested negative for COVID-19.Denies having any palpitations orthopnea PND or ankle edema.Denies having any focal neurological symptoms or sign Denies having any urinary symptoms including hematuria dysuria frequency urgency. Denies having any melena or bright red blood per rectum. On evaluation in the emergency room patient is noted to have a significant left pneumonia. She is being admitted for further treatment of the same. 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 Pt had been PRONED, Placed supine at 199910/09/2021. Pt is afebrile, sedated on Morphine at 1mg/hr and Versed at 10 mg/hr. HR 98 SR, Heparin gtt infusing at 1200 units. BP Supported on Vasopressin at .04 units (pt's BP was soft/labile restarted Vasopressin), and Levophed at .1 mcgs. IVF Infusing via right groin QLC. LAC #20 placed in ICU f/p. day 2 of intubation, Intubated with 7.0 ETT, 24 CM, AC/VC rate 28, TV 408+/-, FIO2 40% PEEP 14. Grossly coarse on left side, diminished, equal, symmetrical, tolerating vent well. Tachypneic. Hypoactive bowel sounds, round abdomen, NGT to Right nare, Trickle tube feeds at 20 ml's/hr. Residual 100+/- Glucose checks Q 6 hours, Pt is running HIGH 376 last glucose, Level 4. Lantus started. Martinez placed #18 clear yellow urine UOP 10-25 ml's/hr. Bladder non distended. Skin intact, Mepilex to sacral area. pt not well kept. Pt remains safe, continue to monitor. Pt ABX Zyvox and Unasyn.
[2021-10-10] MEDS: mineral oil/petrolatum ophthal oint EACHEYE SCH ×4 (02:14→19:05)
[2021-10-10] MEDS: insulin regular, human U-100 3ml vial - multi-dose SQ SCH ×4 (02:14→20:25)
[2021-10-10 02:38] LABS: BASOPHILS % (AUTO) 0.1 % (0-1); EOSINOPHILS % (AUTO) 0.1 % (0-6); HEMATOCRIT 33.2 % (35.0-45.0); HEMOGLOBIN 11.4 g/dl (12.0-16.0); LYMPHOCYTES # (AUTO) 0.5 X10'3 (1.1-4.8); LYMPHOCYTES % (AUTO) 3.1 % (21-51); MEAN CORPUSCULAR HEMOGLOBIN 31.3 PG (27.0-31.0); MEAN CORPUSCULAR HGB CONC 34.2 g/dL (33.0-36.5); MEAN CORPUSCULAR VOLUME 91.5 FL (78-98); MEAN PLATELET VOLUME 9.1 FL (7.4-10.4); MONOCYTES % (AUTO) 5.8 % (2-12); NEUTROPHILS # (AUTO) 15.2 X10'3 (1.8-7.7); NEUTROPHILS % (AUTO) 90.9 % (42-75); PLATELET COUNT 183 X10'3 (140-440); RED BLOOD COUNT 3.63 X10'6 (4.20-5.60); RED CELL DISTRIBUTION WIDTH 12.7 % (11.5-14.5); WHITE BLOOD COUNT 16.7 X10'3 (4.5-11.0)
[2021-10-10] MEDS: ipratropium/albuterol 3ml nebule NEB SCH ×5 (02:47→23:12)
[2021-10-10 02:57] LABS: ALBUMIN 1.8 G/DL (3.4-5.0); ANION GAP 13 (8-16); BLOOD UREA NITROGEN 65 MG/DL (7-18); BUN/CREATININE RATIO 16.9 (6.6-38.0); CALCIUM 7.5 MG/DL (8.5-10.1); CHLORIDE 89 MMOL/L (99-107); CREATININE 3.84 MG/DL (0.40-0.90); GLUCOSE 290 MG/DL (70-104); MAGNESIUM 2.4 MG/DL (1.5-2.4); POTASSIUM 3.1 MMOL/L (3.5-5.1); SODIUM 123 MMOL/L (135-145); TOTAL CARBON DIOXIDE 21.3 MMOL/L (24-32); VANCOMYCIN,RANDOM 11.4 UG/ML; eGFR 12 ML/MIN
[2021-10-10 03:04] LABS: ABG BASE EXCESS -6.7 mmol/L (-2.0-2.0); ABG HCO3 19.1 mmol/L (22.0-26.0); ABG OXYGEN SATURATION 94.7 % (94-97); ABG PCO2 (T) 39.1 mmHg (32.0-45.0); ABG PO2 (T) 75.4 mmHg (75.0-100.0); ALLEN'S TEST Modified; FCOHb 0.3 % (0.0-3.9); FMetHb 0.3 % (0.0-1.5); FO2Hb 94.1 % (94-97); PATIENT TEMPERATURE 36.9; PEEP 14 cm H2O; RESPIRATORY RATE 28 b/min; TIDAL VOLUME 375 mL; TOTAL HEMOGLOBIN 13.1 G/dl (12.0-16.0)
[2021-10-10] MEDS: heparin 25,000 UNIT/250ml bag 250 ML IV SCH (03:33)
[2021-10-10] MEDS ORDERED: POTASSIUM BICARB 20meq eff tab 20 MEQ TABLET.EFF PO ONE (04:35)
[2021-10-10] MEDS: NORepinephrine inj. 32 MG in normal saline 250ml IV soln 218 ML IV SCH ×2 (05:01→22:33)
[2021-10-10] MEDS: midazolam 100mg in NS 100ml 100 ML IV PRN ×3 (05:02→22:34)
--- NOTE | 2021-10-10 06:00 | NUR ---
Patient in room ICU 2041. I have received report from Ortiz FRY and had the opportunity to ask questions and assume patient care.
[2021-10-10] MEDS: benzonatate 100mg capsule PO SCH (07:02)
[2021-10-10] MEDS: K and/or MAG REPLACEMENT MC SCH ×2 (07:56→19:08)
[2021-10-10] MEDS: pantoprazole 40MG/NS 100ML BAG 100 ML IV SCH (08:02)
[2021-10-10] MEDS: nicotine 14mg patch - 24hr TD SCH (08:03)
[2021-10-10] MEDS: thiamine 100mg tablet NG SCH (08:03)
[2021-10-10] MEDS: linezolid 600mg/300ml PREMIX 300 ML IV SCH ×2 (08:03→19:05)
[2021-10-10] MEDS: docusate sodium 100mg/10ml UD cup NG SCH ×2 (08:03→19:08)
[2021-10-10] MEDS: folic acid 1mg tablet NG SCH (08:03)
[2021-10-10] MEDS: ampicillin/sulbac 3gm/NS 100ml 100 ML IV SCH ×2 (08:03→19:05)
[2021-10-10] MEDS: methylPREDNISolone sod succ/PF 40mg inj. IV SCH ×2 (08:04→16:47)
[2021-10-10] MEDS: MULTIVIT-MIN/FERROUS GLUCONATE 9 MG/15 ML LIQUID NG SCH (08:15)
[2021-10-10] MEDS ORDERED: albumin (Human) 5% 250ml 250 ML IV ONE ×2 (09:10)
--- NOTE | 2021-10-10 11:06 | NUR ---
F/u 10/10: Pt tolerating trickle feeds now no longer requires proning w/ HOB at 30 degrees and TF to advance today per storage solutions architect; updated EN recs below. RD notified MD of pt A1C 6.5% and no prior DM hx; is DM per storage solutions architect at rounds. Glu 259-376mg/dl most recently w/ Lantus started last night on glycemic protocol per EMR. Will monitor for TF tolerance and adjustment needs. Recs: 1) Continuous TF using Vital HP at 70ml/hr goal to provide 1680ml volume, 1680 kcals, 147g protein, 1404ml free water 2) no additional water flush, serum Na 124 mmol/L this AM 3) PALB Q /; scaled wt this admit subsequent daily wts 4) routine bowel care 5) Upon extubation advance to Regular diet; consider carb controlled restriction if PO trends adequate given A1C 6.5% on Solumedrol 6) New DM this admit per physician; A1C 6.5% w/ no prior hx or DM home meds per EMR. Would require DM DX by physician prior to RD visit for education Addendum: 10/10/21 at [address] Amended: Links added.
[2021-10-10 11:23] LABS: ABG BASE EXCESS -6.5 mmol/L (-2.0-2.0); ABG HCO3 18.8 mmol/L (22.0-26.0); ABG OXYGEN SATURATION 93.7 % (94-97); ABG PCO2 (T) 35.7 mmHg (32.0-45.0); ABG PO2 (T) 67.4 mmHg (75.0-100.0); ALLEN'S TEST POSITIVE; FCOHb 0.3 % (0.0-3.9); FMetHb 0.3 % (0.0-1.5); FO2Hb 93.1 % (94-97); PATIENT TEMPERATURE 36.4; PEEP 12 cm H2O; RESPIRATORY RATE 28 b/min; TIDAL VOLUME 375 mL; TOTAL HEMOGLOBIN 13.6 G/dl (12.0-16.0)
--- NOTE | 2021-10-10 12:01 | NUR ---
Spoke with Dr. Odell regarding ABG results. MD ordered to decrease rate to 24 on vent. Also ordered to DC heparin drip, and ordered PICC.
[2021-10-10] MEDS: heparin, porcine 5000 units/ml vial SQ SCH ×2 (12:23→19:08)
[2021-10-10] MEDS: sodium bicarbonate (8.4%) inj. 150 MEQ in dextrose 5%-water 1,000 ML IV SCH (12:24)
[2021-10-10] MEDS: morphine/NS 100mg/100ml bag 100 ML IV SCH ×2 (12:36→22:33)
--- NOTE | 2021-10-10 14:00 | NUR ---
Dr. Odell informed regarding 9 beat run of Vta. No new orders at this time.
[2021-10-10] MEDS ORDERED: DEXTROSE 15 GM of carb/4 tabs (each vial/BOTTLE has 4 tablets) NG PRN ×2 (14:22)
[2021-10-10] MEDS ORDERED: acetaminophen 325mg/10.15ml oral unit dose solution PO PRN (14:25)
[2021-10-10 17:12] LABS: ALANINE AMINOTRANSFERASE 118 U/L (12-78); ALBUMIN 2.2 G/DL (3.4-5.0); ALBUMIN/GLOBULIN RATIO 0.7 (1.1-1.5); ALKALINE PHOSPHATASE 60 IU/L (46-116); ASPARTATE AMINO TRANSFERASE 61 U/L (10-37); BILIRUBIN,DIRECT 0.3 MG/DL (0-0.3); BILIRUBIN,TOTAL 0.5 MG/DL (0.1-1.0); TOTAL PROTEIN 5.5 G/DL (6.4-8.2)
--- NOTE | 2021-10-10 18:24 | NUR ---
Problems reprioritized. Patient report given, questions answered & plan of care reviewed with Ortiz FRY.
[2021-10-10] MEDS ORDERED: sodium bicarbonate (8.4%) inj. 50 MEQ in sodium chloride 0.45% 950 ML IV SCH (19:20)
[2021-10-10] MEDS ORDERED: VANCOMYCIN LEVEL IV ONE (19:30)
[2021-10-10] MEDS: insulin glargine (Lantus) pen - multi-dose SQ SCH (20:23)
[2021-10-11] VITALS (34 sets, daily range): BP systolic 89–169; BP diastolic 47–113
--- NOTE | 2021-10-11 00:59 | NUR ---
65 years old female, admitted 10/06/2021, day 5 of hospitalization, full code, NDA, no isolation, no restraints. This patient presented to hospital for evaluation of shortness of breath which started 4 days prior. Patient states she has been getting worse. EMS found her O2 sat to be in the 80s and she was placed on 6 L of oxygen which improved her O2 sat to 94. She has been having cough mostly nonproductive, fever and chills. Patient has been using her albuterol inhaler at home without much relief. She has been nauseous but has not had any vomiting. Patient states his daughter has been sick as well but they have been tested negative for COVID-19.Denies having any palpitations orthopnea PND or ankle edema.Denies having any focal neurological symptoms or sign Denies having any urinary symptoms including hematuria dysuria frequency urgency. Denies having any melena or bright red blood per rectum. On evaluation in the emergency room patient is noted to have a significant left pneumonia. She is being admitted for further treatment of the same. 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 Pt had been PRONED, Placed supine at 199910/09/2021. Pt is afebrile, sedated on Morphine at 3 mg/hr and Versed at 9 mg/hr. HR 98-130 SR/ST. BP supported with Levophed at .1 mcgs. Due to High glucose, Bicarb gtt changed from D5W to .45 NS w/ 1 AMP Bicarb infusing at 50 ml/hr. IVF Infusing via left UA TL PICC line. Day 3 of intubation, Intubated with 7.0 ETT, 24 CM, AC/VC rate 24, TV 408+/-, FIO2 30% PEEP 12. Grossly coarse on left side, diminished, equal, symmetrical, tolerating vent well. Tachypneic. Hypoactive bowel sounds, round abdomen, NGT to Right nare, Trickle tube feeds at 60 ml's/hr. Residual 100+/- Glucose checks Q 6 hours, Pt is running HIGH, Level 6. Lantus at HS. Martinez, #18, draining clear yellow urine, UOP 20-35 ml's/hr. Bladder non distended. Skin intact, Mepilex to sacral area. Pt remains safe, continue to monitor. Pt ABX Zyvox and Unasyn. Addendum: 10/11/21 at 0323 by Bill Camacho RN All lines switched to KAYLEN TL PICC Line. All IV solution and lines changed. Femoral line removed, pressure applied for 10 minutes, pressure dressing applied. No hematoma noted.
[2021-10-11] MEDS: insulin regular, human U-100 3ml vial - multi-dose SQ SCH ×4 (02:06→20:12)
[2021-10-11] MEDS: mineral oil/petrolatum ophthal oint EACHEYE SCH ×4 (02:08→19:45)
[2021-10-11] MEDS: ipratropium/albuterol 3ml nebule NEB SCH ×6 (02:55→23:18)
[2021-10-11 02:59] LABS: ALBUMIN 2.2 G/DL (3.4-5.0); ANION GAP 14 (8-16); BASOPHILS % (AUTO) 0.1 % (0-1); BLOOD UREA NITROGEN 81 MG/DL (7-18); BUN/CREATININE RATIO 17.3 (6.6-38.0); CALCIUM 8.1 MG/DL (8.5-10.1); CHLORIDE 89 MMOL/L (99-107); CREATININE 4.67 MG/DL (0.40-0.90); EOSINOPHILS % (AUTO) 0 % (0-6); GLUCOSE 196 MG/DL (70-104); HEMATOCRIT 31.4 % (35.0-45.0); HEMOGLOBIN 10.8 g/dl (12.0-16.0); LYMPHOCYTES # (AUTO) 0.5 X10'3 (1.1-4.8); LYMPHOCYTES % (AUTO) 2.1 % (21-51); MEAN CORPUSCULAR HEMOGLOBIN 31.1 PG (27.0-31.0); MEAN CORPUSCULAR HGB CONC 34.5 g/dL (33.0-36.5); MEAN CORPUSCULAR VOLUME 90.1 FL (78-98); MEAN PLATELET VOLUME 9.4 FL (7.4-10.4); MONOCYTES # (AUTO) 0.1 X10'3 (0-0.9); MONOCYTES % (AUTO) 0.6 % (2-12); NEUTROPHILS # (AUTO) 23.1 X10'3 (1.8-7.7); NEUTROPHILS % (AUTO) 97.2 % (42-75); PLATELET COUNT 208 X10'3 (140-440); POTASSIUM 3.4 MMOL/L (3.5-5.1); RED BLOOD COUNT 3.48 X10'6 (4.20-5.60); RED CELL DISTRIBUTION WIDTH 12.5 % (11.5-14.5); SODIUM 125 MMOL/L (135-145); WHITE BLOOD COUNT 23.8 X10'3 (4.5-11.0); eGFR 9 ML/MIN
[2021-10-11 03:47] LABS: ABG BASE EXCESS -4.8 mmol/L (-2.0-2.0); ABG HCO3 20.1 mmol/L (22.0-26.0); ABG OXYGEN SATURATION 90.8 % (94-97); ABG PCO2 (T) 36.6 mmHg (32.0-45.0); ABG PO2 (T) 60.9 mmHg (75.0-100.0); ALLEN'S TEST Modified; FMetHb 0.2 % (0.0-1.5); FO2Hb 90.6 % (94-97); PATIENT TEMPERATURE 37.1; PEEP 12 cm H2O; RESPIRATORY RATE 24 b/min; TIDAL VOLUME 375 mL; TOTAL HEMOGLOBIN 12.1 G/dl (12.0-16.0)
[2021-10-11 04:21] LABS: TOTAL CELLS COUNTED 100
[2021-10-11 04:23] LABS: PLATELET ESTIMATE NORMAL
[2021-10-11] MEDS: heparin, porcine 5000 units/ml vial SQ SCH ×3 (04:46→19:33)
[2021-10-11] MEDS: dexmedetomidine/D5W 100mL 100 ML IV SCH ×5 (05:24→22:38)
[2021-10-11] MEDS: NORepinephrine 8mg/ 250ml NS 250 ML IV SCH ×3 (06:21→10:01)
[2021-10-11] MEDS: midazolam 100mg in NS 100ml 100 ML IV PRN (07:18)
[2021-10-11] MEDS: K and/or MAG REPLACEMENT MC SCH ×2 (08:00→20:00)
[2021-10-11] MEDS: MULTIVIT-MIN/FERROUS GLUCONATE 9 MG/15 ML LIQUID NG SCH (08:00)
[2021-10-11] MEDS: thiamine 100mg tablet NG SCH (09:01)
[2021-10-11] MEDS: atorvastatin 20mg tablet NG SCH (09:01)
[2021-10-11] MEDS: methylPREDNISolone sod succ/PF 40mg inj. IV SCH (09:01)
[2021-10-11] MEDS: aspirin 81mg tab.chew NG SCH (09:01)
[2021-10-11] MEDS: folic acid 1mg tablet NG SCH (09:01)
[2021-10-11] MEDS: docusate sodium 100mg/10ml UD cup NG SCH ×2 (09:01→19:32)
[2021-10-11] MEDS: ampicillin/sulbac 3gm/NS 100ml 100 ML IV SCH (09:02)
[2021-10-11] MEDS: pantoprazole 40MG/NS 100ML BAG 100 ML IV SCH (09:02)
[2021-10-11] MEDS: nicotine 14mg patch - 24hr TD SCH (09:02)
[2021-10-11] MEDS: linezolid 600mg/300ml PREMIX 300 ML IV SCH ×2 (09:21→19:32)
[2021-10-11] MEDS ORDERED: vancomycin/NS 1 GM ADD-VANTAGE 250 ML IV PRN (10:00)
[2021-10-11] MEDS ORDERED: sennosides/docusate sodium tablet NG SCH (10:38)
[2021-10-11] MEDS: sennosides 8.6mg tablet NG SCH ×2 (10:50→20:22)
[2021-10-11 11:44] LABS: PHOSPHORUS 5.1 MG/DL (2.3-4.5)
[2021-10-11] MEDS: propofol 1000mg/100ml bottle 100 ML IV SCH ×3 (12:07→23:30)
[2021-10-11] MEDS: insulin glargine (Lantus) pen - multi-dose SQ SCH (20:10)
[2021-10-12] VITALS (35 sets, daily range): BP systolic 64–171; BP diastolic 43–104
[2021-10-12 00:01] LABS: APTT 25 SECONDS (22-32)
[2021-10-12] MEDS: dexmedetomidine/D5W 100mL 100 ML IV SCH ×5 (01:03→22:54)
[2021-10-12] MEDS: mineral oil/petrolatum ophthal oint EACHEYE SCH ×4 (02:00→20:52)
[2021-10-12 02:51] LABS: BASOPHILS % (AUTO) 0.1 % (0-1); EOSINOPHILS % (AUTO) 0.1 % (0-6); HEMATOCRIT 31.2 % (35.0-45.0); HEMOGLOBIN 10.8 g/dl (12.0-16.0); LYMPHOCYTES # (AUTO) 0.6 X10'3 (1.1-4.8); LYMPHOCYTES % (AUTO) 3.2 % (21-51); MEAN CORPUSCULAR HEMOGLOBIN 31.4 PG (27.0-31.0); MEAN CORPUSCULAR HGB CONC 34.5 g/dL (33.0-36.5); MEAN CORPUSCULAR VOLUME 90.9 FL (78-98); MEAN PLATELET VOLUME 8.9 FL (7.4-10.4); MONOCYTES # (AUTO) 0.3 X10'3 (0-0.9); MONOCYTES % (AUTO) 1.6 % (2-12); NEUTROPHILS # (AUTO) 18.7 X10'3 (1.8-7.7); PLATELET COUNT 193 X10'3 (140-440); RED BLOOD COUNT 3.43 X10'6 (4.20-5.60); RED CELL DISTRIBUTION WIDTH 12.7 % (11.5-14.5); WHITE BLOOD COUNT 19.6 X10'3 (4.5-11.0)
[2021-10-12 03:06] LABS: ALANINE AMINOTRANSFERASE 81 U/L (12-78); ALBUMIN 1.9 G/DL (3.4-5.0); ALBUMIN/GLOBULIN RATIO 0.5 (1.1-1.5); ALKALINE PHOSPHATASE 73 IU/L (46-116); ANION GAP 14 (8-16); ASPARTATE AMINO TRANSFERASE 31 U/L (10-37); BILIRUBIN,TOTAL 0.6 MG/DL (0.1-1.0); BLOOD UREA NITROGEN 107 MG/DL (7-18); CALCIUM 8.4 MG/DL (8.5-10.1); CHLORIDE 91 MMOL/L (99-107); CREATININE 4.66 MG/DL (0.40-0.90); GLUCOSE 191 MG/DL (70-104); POTASSIUM 3.1 MMOL/L (3.5-5.1); PREALBUMIN 22.4 MG/DL (19-36); SODIUM 127 MMOL/L (135-145); TOTAL CARBON DIOXIDE 22.3 MMOL/L (24-32); TOTAL PROTEIN 5.4 G/DL (6.4-8.2); VANCOMYCIN,RANDOM 25.5 UG/ML; eGFR 9 ML/MIN
[2021-10-12] MEDS: ipratropium/albuterol 3ml nebule NEB SCH ×6 (03:31→23:22)
[2021-10-12 03:52] LABS: ABG BASE EXCESS -8.3 mmol/L (-2.0-2.0); ABG PCO2 (T) 33.7 mmHg (32.0-45.0); ABG PO2 (T) 84.9 mmHg (75.0-100.0); ALLEN'S TEST Modified; FCOHb 0.3 % (0.0-3.9); FMetHb 0.1 % (0.0-1.5); FO2Hb 95.6 % (94-97); PATIENT TEMPERATURE 36.5; PEEP 10 cm H2O; RESPIRATORY RATE 18 b/min; TIDAL VOLUME 375 mL; TOTAL HEMOGLOBIN 11.6 G/dl (12.0-16.0)
[2021-10-12] MEDS: heparin, porcine 5000 units/ml vial SQ SCH ×3 (04:47→20:51)
[2021-10-12] MEDS: VANCOMYCIN LEVEL IV SCH (06:21)
[2021-10-12] MEDS: docusate sodium 100mg/10ml UD cup NG SCH ×2 (07:10→20:51)
[2021-10-12] MEDS: methylPREDNISolone sod succ/PF 40mg inj. IV SCH (07:10)
[2021-10-12] MEDS: MULTIVIT-MIN/FERROUS GLUCONATE 9 MG/15 ML LIQUID NG SCH (07:10)
[2021-10-12] MEDS: sennosides 8.6mg tablet NG SCH ×2 (07:11→20:51)
[2021-10-12] MEDS: aspirin 81mg tab.chew NG SCH (07:11)
[2021-10-12] MEDS: folic acid 1mg tablet NG SCH (07:11)
[2021-10-12] MEDS: atorvastatin 20mg tablet NG SCH (07:12)
[2021-10-12] MEDS: thiamine 100mg tablet NG SCH (07:12)
[2021-10-12] MEDS: pantoprazole 40MG/NS 100ML BAG 100 ML IV SCH (07:13)
[2021-10-12] MEDS: linezolid 600mg/300ml PREMIX 300 ML IV SCH ×2 (07:13→20:51)
[2021-10-12] MEDS: nicotine 14mg patch - 24hr TD SCH (07:13)
[2021-10-12] MEDS: K and/or MAG REPLACEMENT MC SCH ×2 (07:19→20:00)
[2021-10-12] MEDS: potassium Cl 20mEq/100mL bag 100 ML IV PRN ×4 (07:51→17:01)
[2021-10-12] MEDS: propofol 1000mg/100ml bottle 100 ML IV SCH ×2 (08:55→17:50)
[2021-10-12] MEDS: NORepinephrine 8mg/ 250ml NS 250 ML IV SCH (09:08)
[2021-10-12] MEDS: insulin regular, human U-100 3ml vial - multi-dose SQ SCH ×2 (09:36→21:01)
--- NOTE | 2021-10-12 10:58 | NUR ---
F/u 10/12: Pt remains intubated tolerating TF at goal GRV WNL. No BM yet this admit 6 days w/ routine senna added yesterday in addition to already receiving routine colace per EMR; MD aware. Pt started on Propofol yesterday currently at 10.02ml/hr visualized by RD during rounds this AM providing additional 265 kcals/day. IF Propofol continues will need to adjust EN; recs below. Will continue to monitor for further nutrition intervention needs on vent. Recs: 1) Continuous TF using Vital HP at 70ml/hr goal to provide 1680ml volume, 1680 kcals, 147g protein, 1404ml free water 2) If Propofol remains at 10.02 ml/hr providing additional 265 kcals/day; adjust EN to Vital HP at 60ml/hr goal; would provide 1440ml volume/day, 1440 kcals, 1204ml water, and 126g protein. 3) no additional water flush, serum Na 127 mmol/L this AM 4) PALB Q /; scaled wt this admit subsequent daily wts 5) Consider Phos binder w/ EN per MD; Phos 5.1mg/dl 10/11 down from 6.9mg/dl 10/09 per EMR 6) routine bowel care; 6 days constipation 7) Upon extubation advance to Regular diet; consider carb controlled restriction if PO trends adequate given A1C 6.5% on Solumedrol 8) New DM this admit per physician; A1C 6.5% w/ no prior hx or DM home meds per EMR. Would require DM DX by physician prior to RD visit for education Addendum: 10/12/21 at [address] Amended: Links added.
[2021-10-12] MEDS ORDERED: albumin (human) 25% 100ml IV 100 ML IV PRN (14:20)
[2021-10-12] MEDS ORDERED: heparin 1,000 units/ml 10ml inj IV ONE (14:20)
[2021-10-12] MEDS ORDERED: EPOETIN ALFA-EPBX 20,000 UNIT/ML 1 ML MDV IV ONE (14:20)
[2021-10-12] MEDS ORDERED: fentaNYL/PF 50MCG/1 ML 2ML syringe ONE (14:23)
[2021-10-12] MEDS ORDERED: heparin 1,000 units/ml 10ml inj HE ONE (14:25)
--- NOTE | 2021-10-12 14:45 | NUR ---
PATIENT BLOOD PRESSURE DECREASED INTO THE 80'S TRENDING DOWN FOR ABOUT AN HOUR, LEVOPHED WAS STARTED INCREASING SLOWLY WITH NO IMPROVEMENT, SHORTLY AFTER PATIENTS HR INCREASED INTO THE 200'S BP IN THE 180'S DR MORRISSEY CALLED TO BEDSIDE, LEVOPHED TURNED OFF, EKG ORDERED AND LABS ORDERED WELL. RHYTHM CHANGES SHOWING ARRYTHMIAS, PATIENT HR NORMALIZED INTO THE 70'S AND BLOOD PRESSURE DROPPED INTO THE 60'S, PATIENT STARTED ON NEOSYNEPHRINE.
[2021-10-12] MEDS: PHENYLephrine 10mg/ml inj. 100 MG in normal saline 250ml IV soln 240 ML IV SCH (15:00)
[2021-10-12 15:06] LABS: EOSINOPHILS % (AUTO) 0.1 % (0-6)
[2021-10-12 15:08] LABS: BASOPHILS # (AUTO) 0.3 X10'3 (0-0.2); HEMATOCRIT 33.7 % (35.0-45.0); HEMOGLOBIN 11.4 g/dl (12.0-16.0); LYMPHOCYTES # (AUTO) 0.6 X10'3 (1.1-4.8); LYMPHOCYTES % (AUTO) 2.2 % (21-51); MEAN CORPUSCULAR HEMOGLOBIN 31.1 PG (27.0-31.0); MEAN CORPUSCULAR HGB CONC 33.9 g/dL (33.0-36.5); MEAN CORPUSCULAR VOLUME 91.9 FL (78-98); MEAN PLATELET VOLUME 9.4 FL (7.4-10.4); MONOCYTES % (AUTO) 0.1 % (2-12); NEUTROPHILS # (AUTO) 25.5 X10'3 (1.8-7.7); NEUTROPHILS % (AUTO) 96.6 % (42-75); PLATELET COUNT 214 X10'3 (140-440); RED BLOOD COUNT 3.67 X10'6 (4.20-5.60); RED CELL DISTRIBUTION WIDTH 12.9 % (11.5-14.5)
[2021-10-12 15:09] LABS: WHITE BLOOD COUNT 26.4 X10'3 (4.5-11.0)
[2021-10-12 15:13] LABS: ALANINE AMINOTRANSFERASE 83 U/L (12-78); ALBUMIN 1.9 G/DL (3.4-5.0); ALBUMIN/GLOBULIN RATIO 0.5 (1.1-1.5); ALKALINE PHOSPHATASE 81 IU/L (46-116); ANION GAP 12 (8-16); ASPARTATE AMINO TRANSFERASE 34 U/L (10-37); BILIRUBIN,TOTAL 0.8 MG/DL (0.1-1.0); BLOOD UREA NITROGEN 109 MG/DL (7-18); BUN/CREATININE RATIO 24.9 (6.6-38.0); CALCIUM 8.5 MG/DL (8.5-10.1); CHLORIDE 89 MMOL/L (99-107); CREATININE 4.38 MG/DL (0.40-0.90); GLUCOSE 248 MG/DL (70-104); MAGNESIUM 2.1 MG/DL (1.5-2.4); SODIUM 123 MMOL/L (135-145); TOTAL CARBON DIOXIDE 21.9 MMOL/L (24-32); TOTAL PROTEIN 5.7 G/DL (6.4-8.2); eGFR 10 ML/MIN
[2021-10-12 15:26] LABS: TOTAL CELLS COUNTED 100
[2021-10-12 15:27] LABS: PLATELET ESTIMATE NORMAL
--- NOTE | 2021-10-12 18:26 | NUR ---
Patient in room ICU 2041. I have received report from aDniela FRY and had the opportunity to ask questions and assume patient care.
[2021-10-12] MEDS: insulin glargine (Lantus) pen - multi-dose SQ SCH (20:59)
[2021-10-13] VITALS (37 sets, daily range): BP systolic 44–161; BP diastolic 24–83
[2021-10-13] MEDS: mineral oil/petrolatum ophthal oint EACHEYE SCH ×4 (02:32→20:00)
[2021-10-13] MEDS: VANCOMYCIN LEVEL IV SCH (02:32)
[2021-10-13] MEDS: propofol 1000mg/100ml bottle 100 ML IV SCH ×6 (02:33→23:34)
[2021-10-13] MEDS: insulin regular, human U-100 3ml vial - multi-dose SQ SCH ×2 (02:35→21:05)
[2021-10-13 03:16] LABS: BASOPHILS % (AUTO) 0.1 % (0-1); EOSINOPHILS # (AUTO) 0.5 X10'3 (0-0.9); EOSINOPHILS % (AUTO) 1.6 % (0-6); HEMOGLOBIN 11.1 g/dl (12.0-16.0); LYMPHOCYTES # (AUTO) 0.8 X10'3 (1.1-4.8); MEAN CORPUSCULAR HEMOGLOBIN 30.9 PG (27.0-31.0); MEAN CORPUSCULAR HGB CONC 33.7 g/dL (33.0-36.5); MEAN CORPUSCULAR VOLUME 91.7 FL (78-98); MEAN PLATELET VOLUME 9.5 FL (7.4-10.4); MONOCYTES # (AUTO) 0.1 X10'3 (0-0.9); MONOCYTES % (AUTO) 0.2 % (2-12); NEUTROPHILS # (AUTO) 26.7 X10'3 (1.8-7.7); NEUTROPHILS % (AUTO) 95.1 % (42-75); PLATELET COUNT 218 X10'3 (140-440); RED CELL DISTRIBUTION WIDTH 13.2 % (11.5-14.5)
[2021-10-13 03:24] LABS: WHITE BLOOD COUNT 28.1 X10'3 (4.5-11.0)
[2021-10-13 03:31] LABS: ALANINE AMINOTRANSFERASE 77 U/L (12-78); ALBUMIN 1.9 G/DL (3.4-5.0); ALBUMIN/GLOBULIN RATIO 0.5 (1.1-1.5); ALKALINE PHOSPHATASE 91 IU/L (46-116); ANION GAP 14 (8-16); ASPARTATE AMINO TRANSFERASE 31 U/L (10-37); BILIRUBIN,TOTAL 0.7 MG/DL (0.1-1.0); BLOOD UREA NITROGEN 119 MG/DL (7-18); BUN/CREATININE RATIO 29.2 (6.6-38.0); CALCIUM 8.9 MG/DL (8.5-10.1); CHLORIDE 93 MMOL/L (99-107); CREATININE 4.08 MG/DL (0.40-0.90); GLUCOSE 165 MG/DL (70-104); MAGNESIUM 2.1 MG/DL (1.5-2.4); SODIUM 128 MMOL/L (135-145); TOTAL PROTEIN 5.5 G/DL (6.4-8.2); VANCOMYCIN,RANDOM 20.2 UG/ML; eGFR 11 ML/MIN
[2021-10-13] MEDS: ipratropium/albuterol 3ml nebule NEB SCH ×6 (03:36→22:31)
[2021-10-13] MEDS: dexmedetomidine/D5W 100mL 100 ML IV SCH ×6 (04:01→23:52)
[2021-10-13 04:07] LABS: ABG BASE EXCESS -7.7 mmol/L (-2.0-2.0); ABG HCO3 17.6 mmol/L (22.0-26.0); ABG OXYGEN SATURATION 94.9 % (94-97); ABG PCO2 (T) 35.1 mmHg (32.0-45.0); ABG PO2 (T) 78.4 mmHg (75.0-100.0); ALLEN'S TEST Modified; FCOHb 0.3 % (0.0-3.9); FMetHb 0.1 % (0.0-1.5); FO2Hb 94.5 % (94-97); PEEP 10 cm H2O; RESPIRATORY RATE 18 b/min; TIDAL VOLUME 375 mL; TOTAL HEMOGLOBIN 11.9 G/dl (12.0-16.0)
[2021-10-13] MEDS ORDERED: sennosides 8.6mg tablet NG PRN (04:45)
[2021-10-13 04:58] LABS: PLATELET ESTIMATE NORMAL; TOTAL CELLS COUNTED 100
[2021-10-13] MEDS: heparin, porcine 5000 units/ml vial SQ SCH ×3 (05:18→21:01)
--- NOTE | 2021-10-13 06:46 | NUR ---
Problems reprioritized. Patient report given, questions answered & plan of care reviewed with Daniela FRY.
[2021-10-13] MEDS: folic acid 1mg tablet NG SCH (07:27)
[2021-10-13] MEDS: lansoprazole 15mg solutab NG SCH (07:27)
[2021-10-13] MEDS: linezolid 600mg/300ml PREMIX 300 ML IV SCH ×2 (07:27→21:02)
[2021-10-13] MEDS: methylPREDNISolone sod succ/PF 40mg inj. IV SCH (07:27)
[2021-10-13] MEDS: atorvastatin 20mg tablet NG SCH (07:27)
[2021-10-13] MEDS: docusate sodium 100mg/10ml UD cup NG SCH ×2 (07:27→21:01)
[2021-10-13] MEDS: MULTIVIT-MIN/FERROUS GLUCONATE 9 MG/15 ML LIQUID NG SCH (07:27)
[2021-10-13] MEDS: nicotine 14mg patch - 24hr TD SCH (07:28)
[2021-10-13] MEDS: thiamine 100mg tablet NG SCH (07:28)
[2021-10-13] MEDS: aspirin 81mg tab.chew NG SCH (07:28)
[2021-10-13] MEDS: PHENYLephrine 10mg/ml inj. 100 MG in normal saline 250ml IV soln 240 ML IV SCH (07:54)
[2021-10-13] MEDS: K and/or MAG REPLACEMENT MC SCH ×2 (08:00→20:00)
--- NOTE | 2021-10-13 09:59 | NUR ---
Willie placed on right IJ.
[2021-10-13] MEDS: morphine/NS 100mg/100ml bag 100 ML IV SCH (10:58)
[2021-10-13 11:14] LABS: ABG BASE EXCESS -5.7 mmol/L (-2.0-2.0); ABG HCO3 19.1 mmol/L (22.0-26.0); ABG OXYGEN SATURATION 96.7 % (94-97); ABG PO2 (T) 99.7 mmHg (75.0-100.0); ALLEN'S TEST POSITIVE; FCOHb 0.3 % (0.0-3.9); FMetHb 0.3 % (0.0-1.5); FO2Hb 96.1 % (94-97); PATIENT TEMPERATURE 38.6; PEEP 10 cm H2O; RESPIRATORY RATE 18 b/min; TIDAL VOLUME 596 mL; TOTAL HEMOGLOBIN 13.6 G/dl (12.0-16.0)
--- NOTE | 2021-10-13 12:18 | NUR ---
F/u 10/13: Pt Propofol currently at 26.73ml/hr providing additional 706 kcals/day; DNP agreeable to EN adjustment at rounds updated recs below. Only able to meet 60% of pt minimum estimated protein needs given Propofol rate. Pt first BM today large per RN following 7 days constipation thus far. Noted Phos 7.0 10/12 per EMR; RD d/w RN regarding phos-binder if MD agreeable since to start HD this AM. Will monitor for further EN adjustment needs. Recs: 1) Given Propofol at 26.73ml/hr providing additional 706 kcals/day; adjust EN to Vital HP at 40ml/hr goal; would provide 960ml volume/day, 960 kcals, 803ml water, and 84g protein. 2) Once off Propofol; Continuous TF using Vital HP at 70ml/hr goal to provide 1680ml volume, 1680 kcals, 147g protein, 1404ml free water 3) no additional water flush, serum Na 128 mmol/L this AM 4) PALB Q /; scaled wt this admit subsequent daily wts 5) Consider Phos binder w/ EN per MD; Phos 7.0mg/dl 10/12 to start HD this AM per MD 6) routine bowel care; prior 7 days constipation first BM large this AM 7) Upon extubation advance to Regular diet; consider carb controlled restriction if PO trends adequate given A1C 6.5% on Solumedrol 8) New DM this admit per physician; A1C 6.5% w/ no prior hx or DM home meds per EMR. Would require DM DX by physician prior to RD visit for education Addendum: 10/13/21 at [address] Amended: Links added.
[2021-10-13] MEDS ORDERED: heparin 1,000 units/ml 10ml inj HE ONE (16:10)
[2021-10-13] MEDS ORDERED: rocuronium 10mg/ml inj IV ONE (17:50)
[2021-10-13] MEDS: insulin glargine (Lantus) pen - multi-dose SQ SCH (21:07)
[2021-10-13 22:24] LABS: ALBUMIN 1.9 G/DL (3.4-5.0); ANION GAP 9 (8-16); BLOOD UREA NITROGEN 57 MG/DL (7-18); BUN/CREATININE RATIO 28.2 (6.6-38.0); CALCIUM 8.5 MG/DL (8.5-10.1); CHLORIDE 98 MMOL/L (99-107); CREATININE 2.02 MG/DL (0.40-0.90); GLUCOSE 157 MG/DL (70-104); POTASSIUM 4.2 MMOL/L (3.5-5.1); SODIUM 133 MMOL/L (135-145); TOTAL CARBON DIOXIDE 25.9 MMOL/L (24-32); eGFR 25 ML/MIN
--- NOTE | 2021-10-13 23:10 | NUR ---
Call rec'd from son. condition update given. all questions answered, verbalizes understanding of info given
[2021-10-14] VITALS (36 sets, daily range): BP systolic 83–142; BP diastolic 37–72
[2021-10-14] MEDS: ipratropium/albuterol 3ml nebule NEB SCH ×5 (02:46→19:30)
[2021-10-14] MEDS: insulin regular, human U-100 3ml vial - multi-dose SQ SCH ×3 (02:48→20:15)
[2021-10-14 03:08] LABS: ABG BASE EXCESS -0.1 mmol/L (-2.0-2.0); ABG HCO3 22.8 mmol/L (22.0-26.0); ABG OXYGEN SATURATION 97.2 % (94-97); ALLEN'S TEST POSITIVE; FCOHb 0.3 % (0.0-3.9); FMetHb 0.2 % (0.0-1.5); FO2Hb 96.7 % (94-97); PATIENT TEMPERATURE 37.3; PEEP 10 cm H2O; RESPIRATORY RATE 16 b/min; TIDAL VOLUME 500 mL; TOTAL HEMOGLOBIN 12.5 G/dl (12.0-16.0)
[2021-10-14 03:17] LABS: BASOPHILS % (AUTO) 0.1 % (0-1); EOSINOPHILS # (AUTO) 0.1 X10'3 (0-0.9); EOSINOPHILS % (AUTO) 0.2 % (0-6); HEMATOCRIT 34.8 % (35.0-45.0); HEMOGLOBIN 11.7 g/dl (12.0-16.0); LYMPHOCYTES # (AUTO) 0.9 X10'3 (1.1-4.8); LYMPHOCYTES % (AUTO) 3.3 % (21-51); MEAN CORPUSCULAR HEMOGLOBIN 30.7 PG (27.0-31.0); MEAN CORPUSCULAR HGB CONC 33.7 g/dL (33.0-36.5); MEAN CORPUSCULAR VOLUME 90.9 FL (78-98); MEAN PLATELET VOLUME 9.3 FL (7.4-10.4); MONOCYTES # (AUTO) 0.7 X10'3 (0-0.9); MONOCYTES % (AUTO) 2.5 % (2-12); NEUTROPHILS # (AUTO) 25.5 X10'3 (1.8-7.7); NEUTROPHILS % (AUTO) 93.9 % (42-75); PLATELET COUNT 256 X10'3 (140-440); RED BLOOD COUNT 3.83 X10'6 (4.20-5.60); RED CELL DISTRIBUTION WIDTH 13.1 % (11.5-14.5)
[2021-10-14] MEDS: propofol 1000mg/100ml bottle 100 ML IV SCH ×4 (03:24→21:02)
[2021-10-14] MEDS: dexmedetomidine/D5W 100mL 100 ML IV SCH ×5 (03:25→23:37)
[2021-10-14 03:33] LABS: WHITE BLOOD COUNT 27.2 X10'3 (4.5-11.0)
[2021-10-14 03:36] LABS: ALANINE AMINOTRANSFERASE 66 U/L (12-78); ALBUMIN 1.7 G/DL (3.4-5.0); ALBUMIN/GLOBULIN RATIO 0.4 (1.1-1.5); ALKALINE PHOSPHATASE 135 IU/L (46-116); ANION GAP 11 (8-16); ASPARTATE AMINO TRANSFERASE 36 U/L (10-37); BILIRUBIN,TOTAL 0.9 MG/DL (0.1-1.0); BLOOD UREA NITROGEN 65 MG/DL (7-18); BUN/CREATININE RATIO 29.8 (6.6-38.0); CALCIUM 8.6 MG/DL (8.5-10.1); CHLORIDE 99 MMOL/L (99-107); CREATININE 2.18 MG/DL (0.40-0.90); GLUCOSE 108 MG/DL (70-104); MAGNESIUM 2.1 MG/DL (1.5-2.4); POTASSIUM 4.1 MMOL/L (3.5-5.1); SODIUM 135 MMOL/L (135-145); TOTAL CARBON DIOXIDE 24.8 MMOL/L (24-32); TOTAL PROTEIN 5.9 G/DL (6.4-8.2); TRIGLYCERIDES 184 MG/DL (20-135); VANCOMYCIN,RANDOM 12.1 UG/ML; eGFR 23 ML/MIN
[2021-10-14 05:01] LABS: PLATELET ESTIMATE NORMAL; TOTAL CELLS COUNTED 100
[2021-10-14] MEDS ORDERED: vancomycin/NS 1 GM ADD-VANTAGE 250 ML IV ONE (06:50)
[2021-10-14] MEDS: VANCOMYCIN LEVEL IV SCH (07:11)
[2021-10-14] MEDS: linezolid 600mg/300ml PREMIX 300 ML IV SCH ×2 (07:28→19:51)
[2021-10-14] MEDS: docusate sodium 100mg/10ml UD cup NG SCH ×2 (07:29→19:51)
[2021-10-14] MEDS: MULTIVIT-MIN/FERROUS GLUCONATE 9 MG/15 ML LIQUID NG SCH (07:29)
[2021-10-14] MEDS: nicotine 14mg patch - 24hr TD SCH (07:30)
[2021-10-14] MEDS: lansoprazole 15mg solutab NG SCH (07:30)
[2021-10-14] MEDS: thiamine 100mg tablet NG SCH (07:30)
[2021-10-14] MEDS: methylPREDNISolone sod succ/PF 40mg inj. IV SCH (07:30)
[2021-10-14] MEDS: atorvastatin 20mg tablet NG SCH (07:30)
[2021-10-14] MEDS: folic acid 1mg tablet NG SCH (07:30)
[2021-10-14] MEDS: mineral oil/petrolatum ophthal oint EACHEYE SCH ×3 (07:55→20:00)
[2021-10-14] MEDS: K and/or MAG REPLACEMENT MC SCH ×2 (08:00→20:00)
[2021-10-14] MEDS: aspirin 81mg tab.chew NG SCH (08:39)
[2021-10-14 10:07] LABS: CLARITY,URINE CLEAR (Clear); COLOR,URINE YELLOW (Yellow); GLUCOSE, URINE NEGATIVE (Neg); KETONES,URINE NEGATIVE (Neg); LEUKOCYTE ESTERASE ,URINE NEGATIVE (Neg); NITRITES, URINE NEGATIVE (Neg); OCCULT BLOOD,URINE TRACE-INTACT (Neg); PROTEIN,URINE NEGATIVE (Neg); UROBILINOGEN,URINE 0.2 E.U/dL (0.2-1.0)
[2021-10-14 10:10] LABS: BACTERIA,URINE FEW /HPF (Neg); MUCUS STRANDS FEW /LPF (Neg); RBC,URINE 0-2 /HPF (0-2); SQUAMOUS EPITHELIAL CELL,UR FEW /LPF (FEW); UA COLLECTION TYPE NON-SPECIFIED; WBC,URINE 0-4 /HPF (0-4)
[2021-10-14 10:18] LABS: ALBUMIN 1.5 G/DL (3.4-5.0); ALKALINE PHOSPHATASE 120 IU/L (46-116); ANION GAP 8 (8-16); BILIRUBIN,TOTAL 0.9 MG/DL (0.1-1.0); BLOOD UREA NITROGEN 66 MG/DL (7-18); BUN/CREATININE RATIO 29.5 (6.6-38.0); CALCIUM 7.4 MG/DL (8.5-10.1); CHLORIDE 93 MMOL/L (99-107); CREATININE 2.24 MG/DL (0.40-0.90); SODIUM 125 MMOL/L (135-145); eGFR 22 ML/MIN
[2021-10-14 10:33] LABS: ALANINE AMINOTRANSFERASE 51 U/L (12-78); ASPARTATE AMINO TRANSFERASE 36 U/L (10-37)
[2021-10-14 10:35] LABS: ALBUMIN/GLOBULIN RATIO 0.4 (1.1-1.5); GLUCOSE 319 MG/DL (70-104); TOTAL PROTEIN 5.4 G/DL (6.4-8.2)
[2021-10-14 10:36] LABS: POTASSIUM 3.7 MMOL/L (3.5-5.1)
[2021-10-14 10:46] LABS: PHOSPHORUS 3.8 MG/DL (2.3-4.5)
[2021-10-14] MEDS: PHENYLephrine 10mg/ml inj. 100 MG in normal saline 250ml IV soln 240 ML IV SCH (14:09)
[2021-10-14] MEDS: heparin, porcine 5000 units/ml vial SQ SCH ×2 (14:10→19:51)
[2021-10-14] MEDS: acetaminophen 325mg/10.15ml oral unit dose solution NG PRN (15:01)
[2021-10-14 16:31] LABS: ALANINE AMINOTRANSFERASE 51 U/L (12-78); ALBUMIN 1.6 G/DL (3.4-5.0); ALBUMIN/GLOBULIN RATIO 0.4 (1.1-1.5); ALKALINE PHOSPHATASE 120 IU/L (46-116); ANION GAP 11 (8-16); ASPARTATE AMINO TRANSFERASE 30 U/L (10-37); BILIRUBIN,TOTAL 0.7 MG/DL (0.1-1.0); BLOOD UREA NITROGEN 73 MG/DL (7-18); BUN/CREATININE RATIO 31.2 (6.6-38.0); CALCIUM 8.2 MG/DL (8.5-10.1); CHLORIDE 98 MMOL/L (99-107); CREATININE 2.34 MG/DL (0.40-0.90); GLUCOSE 343 MG/DL (70-104); POTASSIUM 4.4 MMOL/L (3.5-5.1); SODIUM 132 MMOL/L (135-145); TOTAL CARBON DIOXIDE 22.8 MMOL/L (24-32); TOTAL PROTEIN 5.6 G/DL (6.4-8.2); eGFR 21 ML/MIN
[2021-10-14] MEDS: phenylephrine inj 50 MG in normal saline 250ml IV soln 245 ML IV SCH (19:52)
[2021-10-14] MEDS: insulin glargine (Lantus) pen - multi-dose SQ SCH (20:17)
[2021-10-15] VITALS (34 sets, daily range): BP systolic 98–132; BP diastolic 51–73
[2021-10-15 01:36] LABS: BASOPHILS % (AUTO) 0 % (0-1); EOSINOPHILS # (AUTO) 0.1 X10'3 (0-0.9); EOSINOPHILS % (AUTO) 0.5 % (0-6); HEMATOCRIT 33.9 % (35.0-45.0); HEMOGLOBIN 11.5 g/dl (12.0-16.0); LYMPHOCYTES # (AUTO) 0.9 X10'3 (1.1-4.8); LYMPHOCYTES % (AUTO) 4.1 % (21-51); MEAN CORPUSCULAR HEMOGLOBIN 31.3 PG (27.0-31.0); MEAN CORPUSCULAR VOLUME 91.8 FL (78-98); MEAN PLATELET VOLUME 8.9 FL (7.4-10.4); MONOCYTES # (AUTO) 0.6 X10'3 (0-0.9); NEUTROPHILS # (AUTO) 19.7 X10'3 (1.8-7.7); NEUTROPHILS % (AUTO) 92.4 % (42-75); PLATELET COUNT 241 X10'3 (140-440); RED BLOOD COUNT 3.69 X10'6 (4.20-5.60); RED CELL DISTRIBUTION WIDTH 13.1 % (11.5-14.5); WHITE BLOOD COUNT 21.3 X10'3 (4.5-11.0)
[2021-10-15 01:43] LABS: ALANINE AMINOTRANSFERASE 50 U/L (12-78); ALBUMIN 1.6 G/DL (3.4-5.0); ALBUMIN/GLOBULIN RATIO 0.4 (1.1-1.5); ALKALINE PHOSPHATASE 112 IU/L (46-116); ANION GAP 11 (8-16); ASPARTATE AMINO TRANSFERASE 31 U/L (10-37); BILIRUBIN,TOTAL 0.6 MG/DL (0.1-1.0); BLOOD UREA NITROGEN 79 MG/DL (7-18); BUN/CREATININE RATIO 36.6 (6.6-38.0); CALCIUM 8.4 MG/DL (8.5-10.1); CHLORIDE 102 MMOL/L (99-107); CREATININE 2.16 MG/DL (0.40-0.90); GLUCOSE 103 MG/DL (70-104); MAGNESIUM 1.8 MG/DL (1.5-2.4); SODIUM 137 MMOL/L (135-145); TOTAL CARBON DIOXIDE 24.4 MMOL/L (24-32); TOTAL PROTEIN 5.9 G/DL (6.4-8.2); eGFR 23 ML/MIN
[2021-10-15] MEDS: mineral oil/petrolatum ophthal oint EACHEYE SCH ×4 (02:00→19:24)
[2021-10-15] MEDS: ipratropium/albuterol 3ml nebule NEB SCH ×6 (03:15→23:10)
[2021-10-15 03:31] LABS: TOTAL CELLS COUNTED 100
[2021-10-15 03:32] LABS: PLATELET ESTIMATE NORMAL
[2021-10-15 03:34] LABS: ABG BASE EXCESS -0.7 mmol/L (-2.0-2.0); ABG HCO3 21.9 mmol/L (22.0-26.0); ABG OXYGEN SATURATION 96.2 % (94-97); ABG PCO2 (T) 29.9 mmHg (32.0-45.0); ABG PO2 (T) 88.1 mmHg (75.0-100.0); ALLEN'S TEST POSITIVE; FCOHb 0.3 % (0.0-3.9); FMetHb 0.1 % (0.0-1.5); FO2Hb 95.8 % (94-97); PATIENT TEMPERATURE 37.4; PEEP 8 cm H2O; RESPIRATORY RATE 18 b/min; TIDAL VOLUME 550 mL; TOTAL HEMOGLOBIN 11.4 G/dl (12.0-16.0)
[2021-10-15] MEDS: VANCOMYCIN LEVEL IV SCH (03:38)
[2021-10-15] MEDS: heparin, porcine 5000 units/ml vial SQ SCH ×3 (04:43→19:24)
[2021-10-15] MEDS: dexmedetomidine/D5W 100mL 100 ML IV SCH ×5 (05:44→22:42)
[2021-10-15 07:14] LABS: PHOSPHORUS 6.6 MG/DL (2.3-4.5)
[2021-10-15] MEDS: K and/or MAG REPLACEMENT MC SCH ×2 (08:00→20:00)
[2021-10-15] MEDS: MULTIVIT-MIN/FERROUS GLUCONATE 9 MG/15 ML LIQUID NG SCH (08:22)
[2021-10-15] MEDS: docusate sodium 100mg/10ml UD cup NG SCH ×2 (08:23→19:26)
[2021-10-15] MEDS: folic acid 1mg tablet NG SCH (08:23)
[2021-10-15] MEDS: aspirin 81mg tab.chew NG SCH (08:23)
[2021-10-15] MEDS: thiamine 100mg tablet NG SCH (08:23)
[2021-10-15] MEDS: lansoprazole 15mg solutab NG SCH (08:23)
[2021-10-15] MEDS: atorvastatin 20mg tablet NG SCH (08:23)
[2021-10-15] MEDS: methylPREDNISolone sod succ/PF 40mg inj. IV SCH (08:25)
[2021-10-15] MEDS: linezolid 600mg/300ml PREMIX 300 ML IV SCH ×2 (08:26→19:23)
[2021-10-15] MEDS: nicotine 14mg patch - 24hr TD SCH (08:27)
[2021-10-15] MEDS: insulin regular, human U-100 3ml vial - multi-dose SQ SCH ×3 (08:42→20:40)
--- NOTE | 2021-10-15 10:34 | NUR ---
Robert Adler, BEAM PRESS OPERATOR asked to start weaning the sedation down on patient to see if we can attempt to get her extubated. Patient sedation has been cut in half and then turned off and patient is tolerating well. She is able to track Primary RN with her eyes and can squeeze both hands and wiggle her toes. Will attempt spontaneous breathing trials next.
[2021-10-15] MEDS: phenylephrine inj 50 MG in normal saline 250ml IV soln 245 ML IV SCH (10:37)
[2021-10-15 16:15] LABS: ALBUMIN 1.7 G/DL (3.4-5.0); ANION GAP 11 (8-16); BLOOD UREA NITROGEN 81 MG/DL (7-18); BUN/CREATININE RATIO 39.7 (6.6-38.0); CALCIUM 8.7 MG/DL (8.5-10.1); CHLORIDE 104 MMOL/L (99-107); CREATININE 2.04 MG/DL (0.40-0.90); GLUCOSE 210 MG/DL (70-104); POTASSIUM 4.3 MMOL/L (3.5-5.1); SODIUM 138 MMOL/L (135-145); TOTAL CARBON DIOXIDE 23.3 MMOL/L (24-32); eGFR 24 ML/MIN
[2021-10-15] MEDS: insulin glargine (Lantus) pen - multi-dose SQ SCH (20:41)
[2021-10-16] VITALS (34 sets, daily range): BP systolic 101–127; BP diastolic 45–68
[2021-10-16] MEDS: mineral oil/petrolatum ophthal oint EACHEYE SCH ×4 (02:00→19:23)
[2021-10-16] MEDS: dexmedetomidine/D5W 100mL 100 ML IV PRN ×6 (02:02→21:48)
[2021-10-16] MEDS: insulin regular, human U-100 3ml vial - multi-dose SQ SCH ×4 (02:04→19:37)
[2021-10-16 02:17] LABS: BASOPHILS % (AUTO) 0.2 % (0-1); EOSINOPHILS # (AUTO) 0.1 X10'3 (0-0.9); EOSINOPHILS % (AUTO) 0.7 % (0-6); HEMATOCRIT 28.5 % (35.0-45.0); HEMOGLOBIN 9.8 g/dl (12.0-16.0); LYMPHOCYTES # (AUTO) 0.9 X10'3 (1.1-4.8); LYMPHOCYTES % (AUTO) 6.3 % (21-51); MEAN CORPUSCULAR HEMOGLOBIN 31.9 PG (27.0-31.0); MEAN CORPUSCULAR HGB CONC 34.4 g/dL (33.0-36.5); MEAN CORPUSCULAR VOLUME 92.6 FL (78-98); MEAN PLATELET VOLUME 8.6 FL (7.4-10.4); MONOCYTES # (AUTO) 0.7 X10'3 (0-0.9); NEUTROPHILS # (AUTO) 11.9 X10'3 (1.8-7.7); NEUTROPHILS % (AUTO) 87.8 % (42-75); PLATELET COUNT 238 X10'3 (140-440); RED BLOOD COUNT 3.08 X10'6 (4.20-5.60); WHITE BLOOD COUNT 13.6 X10'3 (4.5-11.0)
[2021-10-16] MEDS: ipratropium/albuterol 3ml nebule NEB SCH ×6 (02:35→22:45)
[2021-10-16 02:51] LABS: ABG BASE EXCESS 0.9 mmol/L (-2.0-2.0); ABG PCO2 (T) 29.5 mmHg (32.0-45.0); ABG PO2 (T) 79.9 mmHg (75.0-100.0); ALLEN'S TEST POSITIVE; FCOHb 0.2 % (0.0-3.9); FMetHb 0.2 % (0.0-1.5); FO2Hb 95.6 % (94-97); PATIENT TEMPERATURE 36.2; PEEP 6 cm H2O; RESPIRATORY RATE 16 b/min; TIDAL VOLUME 500 mL; TOTAL HEMOGLOBIN 15.4 G/dl (12.0-16.0)
[2021-10-16] MEDS: phenylephrine inj 50 MG in normal saline 250ml IV soln 245 ML IV SCH (03:01)
[2021-10-16 03:05] LABS: ALANINE AMINOTRANSFERASE 46 U/L (12-78); ALBUMIN 1.7 G/DL (3.4-5.0); ALBUMIN/GLOBULIN RATIO 0.4 (1.1-1.5); ALKALINE PHOSPHATASE 94 IU/L (46-116); ANION GAP 11 (8-16); ASPARTATE AMINO TRANSFERASE 33 U/L (10-37); BILIRUBIN,TOTAL 0.5 MG/DL (0.1-1.0); BLOOD UREA NITROGEN 76 MG/DL (7-18); BUN/CREATININE RATIO 42.7 (6.6-38.0); CALCIUM 8.6 MG/DL (8.5-10.1); CHLORIDE 105 MMOL/L (99-107); CREATININE 1.78 MG/DL (0.40-0.90); GLUCOSE 120 MG/DL (70-104); MAGNESIUM 1.8 MG/DL (1.5-2.4); POTASSIUM 3.8 MMOL/L (3.5-5.1); PREALBUMIN 19.3 MG/DL (19-36); SODIUM 141 MMOL/L (135-145); TOTAL CARBON DIOXIDE 24.7 MMOL/L (24-32); TOTAL PROTEIN 5.8 G/DL (6.4-8.2); eGFR 29 ML/MIN
[2021-10-16 03:10] LABS: VANCOMYCIN,RANDOM 11.3 UG/ML
[2021-10-16] MEDS: propofol 1000mg/100ml bottle 100 ML IV SCH (03:30)
[2021-10-16] MEDS: VANCOMYCIN LEVEL IV SCH (03:46)
[2021-10-16] MEDS: heparin, porcine 5000 units/ml vial SQ SCH ×3 (04:14→19:22)
[2021-10-16] MEDS ORDERED: vancomycin/NS 1 GM ADD-VANTAGE 250 ML IV ONE (07:20)
[2021-10-16] MEDS: docusate sodium 100mg/10ml UD cup NG SCH ×2 (08:00→19:23)
[2021-10-16] MEDS: K and/or MAG REPLACEMENT MC SCH ×2 (08:00→19:23)
[2021-10-16] MEDS: methylPREDNISolone sod succ/PF 40mg inj. IV SCH (08:11)
[2021-10-16] MEDS: linezolid 600mg/300ml PREMIX 300 ML IV SCH ×2 (08:11→19:22)
[2021-10-16] MEDS: aspirin 81mg tab.chew NG SCH (08:11)
[2021-10-16] MEDS: MULTIVIT-MIN/FERROUS GLUCONATE 9 MG/15 ML LIQUID NG SCH (08:11)
[2021-10-16] MEDS: thiamine 100mg tablet NG SCH (08:12)
[2021-10-16] MEDS: folic acid 1mg tablet NG SCH (08:12)
[2021-10-16] MEDS: lansoprazole 15mg solutab NG SCH (08:12)
[2021-10-16] MEDS: atorvastatin 20mg tablet NG SCH (08:12)
[2021-10-16] MEDS: nicotine 14mg patch - 24hr TD SCH (08:17)
--- NOTE | 2021-10-16 11:15 | NUR ---
F/u 10/16: Pt remains intubated w/ Propofol now off and EN to return to 70ml/hr goal from prior 40ml/hr per RN at rounds. 7 BM's past 48 hours though unsure of volume as none in I&O's; rectal bag visualized ~150ml output by RD during rounds. Pt now off HD per EMR. Will monitor for further nutrition intervention needs. Recs: 1) Continuous TF using Vital HP at 70ml/hr goal to provide 1680ml volume, 1680 kcals, 147g protein, 1404ml free water 2) additional water flush per coach operator; initial low serum Na now WNL 3) PALB Q /; scaled wt this admit subsequent daily wts 4) Consider Phos binder w/ EN per MD; Phos 6.6mg/dl 10/15 remains elevated this admit 5) routine bowel care 6) Upon extubation advance to Regular diet; consider carb controlled restriction if PO trends adequate given A1C 6.5% on Solumedrol 7) New DM this admit per physician; A1C 6.5% w/ no prior hx or DM home meds per EMR. Would require DM DX by physician prior to RD visit for education Addendum: 10/16/21 at [address] Amended: Links added.
[2021-10-16 14:49] LABS: % IRON SATURATION 19 % (11-46); IRON 28 UG/DL (49-151); TOTAL IRON BINDING CAPACITY 148 UG/DL (259-388)
--- NOTE | 2021-10-16 19:49 | NUR ---
65 years old female, admitted 10/06/2021, day 10 into 11 of hospitalization, full code, NDA, Contact isolation for MRSA in blood, Per 10/08/2021 Blood cultures. Right soft wrist restraint, orders and documentation in accordance with facility policies and procedures. This patient presented to hospital for evaluation of shortness of breath which started 4 days prior. Patient states she has been getting worse. EMS found her O2 sat to be in the 80s and she was placed on 6 L of oxygen which improved her O2 sat to 94. She has been having cough mostly nonproductive, fever and chills. Patient has been using her albuterol inhaler at home without much relief. She has been nauseous but has not had any vomiting. Patient states his daughter has been sick as well but they have been tested negative for COVID-19.Denies having any palpitations orthopnea PND or ankle edema.Denies having any focal neurological symptoms or sign Denies having any urinary symptoms including hematuria dysuria frequency urgency. Denies having any melena or bright red blood per rectum. On evaluation in the emergency room patient is noted to have a significant left pneumonia. She is being admitted for further treatment of the same. 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 Pt had been PRONED, Placed supine at 199910/09/2021. Presently, patient is awake and alert following commands, move all extremities with gross weakness bilaterally. Pt is afebrile, Precedex at 1 mcg (27.85 ml/hr). HR 86 SR. BP 109/51. Generalized +1 edema, IVF infusing via KAYLEN TL PICC line. All ports f/p, good blood return. Day 8 of intubation, Intubated with 8.0 ETT, SPON , FIO2 35%, PEEP 5, volumes 400+/-. RR 29 Pulse ox 97%, Grossly coarse on bilaterally with scattered rhonchi, diminished, equal, symmetrical, tolerating vent well. Suction PRN with minimal results. Hypoactive bowel sounds, round abdomen, NGT to Right nare, Tube feed Vital HP at 70 ml's/hr. Rectal tube draining liquid brown stool. Glucose checks Q 6 hours, covered with Regular Insulin. Pt had been on level 6, Glucose 116 and had been running on the low side to within limits range so, I decreased to Level 5 and cover Nutritional Insulin at 11 units at 2000 for glucose of 116. Lantus at HS. Martinez, #18, draining clear yellow urine, UOP 100+ ml's/hr. Bladder non distended. Skin intact, Mepilex to sacral area. Pt remains safe, continue to monitor. Pt ABX Zyvox and Vancomycin
[2021-10-16] MEDS: insulin glargine (Lantus) pen - multi-dose SQ SCH (20:25)
[2021-10-17] VITALS (27 sets, daily range): BP systolic 105–139; BP diastolic 40–71
[2021-10-17] MEDS: mineral oil/petrolatum ophthal oint EACHEYE SCH ×2 (01:15→07:36)
[2021-10-17 02:30] LABS: BASOPHILS % (AUTO) 0.2 % (0-1); EOSINOPHILS # (AUTO) 0.2 X10'3 (0-0.9); EOSINOPHILS % (AUTO) 1.5 % (0-6); HEMATOCRIT 28.4 % (35.0-45.0); HEMOGLOBIN 9.7 g/dl (12.0-16.0); LYMPHOCYTES # (AUTO) 0.6 X10'3 (1.1-4.8); LYMPHOCYTES % (AUTO) 5.7 % (21-51); MEAN CORPUSCULAR HEMOGLOBIN 31.8 PG (27.0-31.0); MEAN CORPUSCULAR VOLUME 93.7 FL (78-98); MEAN PLATELET VOLUME 8.8 FL (7.4-10.4); MONOCYTES # (AUTO) 0.8 X10'3 (0-0.9); MONOCYTES % (AUTO) 7.5 % (2-12); NEUTROPHILS # (AUTO) 9.1 X10'3 (1.8-7.7); NEUTROPHILS % (AUTO) 85.1 % (42-75); PLATELET COUNT 229 X10'3 (140-440); RED BLOOD COUNT 3.03 X10'6 (4.20-5.60); RED CELL DISTRIBUTION WIDTH 13.3 % (11.5-14.5); WHITE BLOOD COUNT 10.6 X10'3 (4.5-11.0)
[2021-10-17 02:42] LABS: ALANINE AMINOTRANSFERASE 45 U/L (12-78); ALBUMIN 1.7 G/DL (3.4-5.0); ALBUMIN/GLOBULIN RATIO 0.4 (1.1-1.5); ALKALINE PHOSPHATASE 83 IU/L (46-116); ANION GAP 11 (8-16); ASPARTATE AMINO TRANSFERASE 35 U/L (10-37); BILIRUBIN,TOTAL 0.4 MG/DL (0.1-1.0); BLOOD UREA NITROGEN 68 MG/DL (7-18); BUN/CREATININE RATIO 46.3 (6.6-38.0); CALCIUM 8.9 MG/DL (8.5-10.1); CHLORIDE 108 MMOL/L (99-107); CREATININE 1.47 MG/DL (0.40-0.90); GLUCOSE 74 MG/DL (70-104); MAGNESIUM 1.6 MG/DL (1.5-2.4); POTASSIUM 3.6 MMOL/L (3.5-5.1); SODIUM 144 MMOL/L (135-145); TOTAL CARBON DIOXIDE 25.3 MMOL/L (24-32); TOTAL PROTEIN 5.9 G/DL (6.4-8.2); TRIGLYCERIDES 114 MG/DL (20-135); VANCOMYCIN,RANDOM 16.9 UG/ML; eGFR 36 ML/MIN
[2021-10-17] MEDS: VANCOMYCIN LEVEL IV SCH (02:53)
[2021-10-17] MEDS: ipratropium/albuterol 3ml nebule NEB SCH ×6 (02:57→23:17)
[2021-10-17 03:14] LABS: ABG BASE EXCESS -0.1 mmol/L (-2.0-2.0); ABG HCO3 22.5 mmol/L (22.0-26.0); ABG OXYGEN SATURATION 94.3 % (94-97); ABG PCO2 (T) 29.5 mmHg (32.0-45.0); ABG PO2 (T) 68.9 mmHg (75.0-100.0); ALLEN'S TEST POSITIVE; FCOHb 0.3 % (0.0-3.9); FMetHb 0.2 % (0.0-1.5); FO2Hb 93.8 % (94-97); PATIENT TEMPERATURE 36.7; PEEP 5 cm H2O; TOTAL HEMOGLOBIN 10.2 G/dl (12.0-16.0)
[2021-10-17] MEDS: heparin, porcine 5000 units/ml vial SQ SCH ×3 (03:22→21:10)
[2021-10-17] MEDS: dexmedetomidine/D5W 100mL 100 ML IV PRN ×6 (04:26→20:53)
[2021-10-17] MEDS: methylPREDNISolone sod succ/PF 40mg inj. IV SCH (07:33)
[2021-10-17] MEDS: MULTIVIT-MIN/FERROUS GLUCONATE 9 MG/15 ML LIQUID NG SCH (07:34)
[2021-10-17] MEDS: atorvastatin 20mg tablet NG SCH (07:34)
[2021-10-17] MEDS: lansoprazole 15mg solutab NG SCH (07:34)
[2021-10-17] MEDS: folic acid 1mg tablet NG SCH (07:34)
[2021-10-17] MEDS: thiamine 100mg tablet NG SCH (07:34)
[2021-10-17] MEDS: nicotine 14mg patch - 24hr TD SCH (07:36)
[2021-10-17] MEDS: docusate sodium 100mg/10ml UD cup NG SCH ×2 (07:36→20:00)
[2021-10-17] MEDS: K and/or MAG REPLACEMENT MC SCH ×2 (07:36→20:00)
[2021-10-17] MEDS: linezolid 600mg/300ml PREMIX 300 ML IV SCH (07:37)
[2021-10-17] MEDS: insulin regular, human U-100 3ml vial - multi-dose SQ SCH ×3 (07:44→21:39)
[2021-10-17] MEDS: aspirin 81mg tab.chew NG SCH (07:50)
[2021-10-17 09:04] LABS: PHOSPHORUS 4.8 MG/DL (2.3-4.5)
--- NOTE | 2021-10-17 09:46 | NUR ---
Patient was extubated at [address] Connors's order. Patient tolerated well. Able to cough and speak quietly. Patient oriented to call light and suction. Patient placed on 4.0 L via NC. IS and flutter valve given to patient and she was educated on how to use them in order to help exercise her lungs.
[2021-10-17] MEDS ORDERED: LORazepam 2 mg/ml vial IV PRN (11:05)
[2021-10-17] MEDS: ascorbic acid 500mg tablet PO SCH (17:21)
--- NOTE | 2021-10-17 18:33 | NUR ---
Patient in room ICU 2041. I have received report from Peg FRY and had the opportunity to ask questions and assume patient care.
[2021-10-17] MEDS: LORazepam 2 mg/ml vial IV PRN (21:09)
[2021-10-17] MEDS: ferrous sulfate 325mg tablet PO SCH (21:11)
[2021-10-17] MEDS: insulin glargine (Lantus) pen - multi-dose SQ SCH (21:37)
[2021-10-18] VITALS (16 sets, daily range): BP systolic 133–171; BP diastolic 59–103
[2021-10-18] MEDS: dexmedetomidine/D5W 100mL 100 ML IV PRN ×2 (00:07→05:34)
[2021-10-18] MEDS: insulin regular, human U-100 3ml vial - multi-dose SQ SCH (02:15)
[2021-10-18 03:24] LABS: ALANINE AMINOTRANSFERASE 48 U/L (12-78); ALBUMIN 1.8 G/DL (3.4-5.0); ALBUMIN/GLOBULIN RATIO 0.4 (1.1-1.5); ALKALINE PHOSPHATASE 80 IU/L (46-116); ANION GAP 11 (8-16); ASPARTATE AMINO TRANSFERASE 40 U/L (10-37); BASOPHILS % (AUTO) 0.2 % (0-1); BILIRUBIN,TOTAL 0.4 MG/DL (0.1-1.0); BLOOD UREA NITROGEN 64 MG/DL (7-18); BUN/CREATININE RATIO 49.6 (6.6-38.0); CALCIUM 9.3 MG/DL (8.5-10.1); CHLORIDE 110 MMOL/L (99-107); CREATININE 1.29 MG/DL (0.40-0.90); EOSINOPHILS # (AUTO) 0.1 X10'3 (0-0.9); GLUCOSE 104 MG/DL (70-104); HEMOGLOBIN 9.6 g/dl (12.0-16.0); LYMPHOCYTES # (AUTO) 0.5 X10'3 (1.1-4.8); LYMPHOCYTES % (AUTO) 4.9 % (21-51); MEAN CORPUSCULAR HEMOGLOBIN 30.8 PG (27.0-31.0); MEAN CORPUSCULAR HGB CONC 33.1 g/dL (33.0-36.5); MONOCYTES # (AUTO) 0.8 X10'3 (0-0.9); MONOCYTES % (AUTO) 7.6 % (2-12); NEUTROPHILS # (AUTO) 9.5 X10'3 (1.8-7.7); NEUTROPHILS % (AUTO) 86.3 % (42-75); PHOSPHORUS 4.5 MG/DL (2.3-4.5); PLATELET COUNT 244 X10'3 (140-440); POTASSIUM 3.3 MMOL/L (3.5-5.1); RED BLOOD COUNT 3.11 X10'6 (4.20-5.60); RED CELL DISTRIBUTION WIDTH 12.8 % (11.5-14.5); SODIUM 146 MMOL/L (135-145); TOTAL CARBON DIOXIDE 25.2 MMOL/L (24-32); TOTAL PROTEIN 6.2 G/DL (6.4-8.2); VANCOMYCIN,RANDOM 9.6 UG/ML; eGFR 41 ML/MIN
[2021-10-18] MEDS: ipratropium/albuterol 3ml nebule NEB SCH ×6 (03:30→23:17)
[2021-10-18] MEDS: heparin, porcine 5000 units/ml vial SQ SCH ×3 (04:45→19:45)
[2021-10-18] MEDS: potassium Cl 20mEq/100mL bag 100 ML IV PRN ×2 (04:46→09:01)
--- NOTE | 2021-10-18 04:56 | NUR ---
Dr Murphy rounded and updated of patient condition, no new orders.
[2021-10-18] MEDS: vancomycin/NS 1 GM ADD-VANTAGE 250 ML IV SCH (05:34)
--- NOTE | 2021-10-18 06:30 | NUR ---
Patient in room ICU 2041. I have received report from Tamy and had the opportunity to ask questions and assume patient care.
--- NOTE | 2021-10-18 06:40 | NUR ---
Problems reprioritized. Patient report given to Thomas FRY, questions answered & plan of care reviewed with .
[2021-10-18] MEDS: MULTIVIT-MIN/FERROUS GLUCONATE 9 MG/15 ML LIQUID NG SCH (07:53)
[2021-10-18] MEDS: ferrous sulfate 325mg tablet PO SCH ×2 (07:53→19:45)
[2021-10-18] MEDS: folic acid 1mg tablet NG SCH (07:54)
[2021-10-18] MEDS: thiamine 100mg tablet NG SCH (07:54)
[2021-10-18] MEDS: aspirin 81mg tab.chew NG SCH (07:54)
[2021-10-18] MEDS: ascorbic acid 500mg tablet PO SCH ×2 (07:54→19:46)
[2021-10-18] MEDS: atorvastatin 20mg tablet NG SCH (07:54)
[2021-10-18] MEDS: lansoprazole 15mg solutab NG SCH (07:54)
[2021-10-18] MEDS: methylPREDNISolone sod succ/PF 40mg inj. IV SCH (07:55)
[2021-10-18] MEDS: nicotine 14mg patch - 24hr TD SCH (07:56)
[2021-10-18] MEDS: docusate sodium 100mg/10ml UD cup NG SCH ×2 (07:56→20:00)
[2021-10-18] MEDS ORDERED: duloxetine 20mg capsule.DR PO SCH (08:00)
[2021-10-18] MEDS: K and/or MAG REPLACEMENT MC SCH ×2 (08:00→20:00)
--- NOTE | 2021-10-18 09:05 | NUR ---
Pt heart rate is in the 120s. Per verbal order from Dr. Clifford. Start NS at 125 ml/hr. Also, patient is able swallow and was elevated by speech and approve to eat. Dr. Clifford is informed and said to hold tube feeds for now.
[2021-10-18] MEDS: normal saline 1000ml 1,000 ML IV SCH ×2 (09:11→17:54)
[2021-10-18] MEDS ORDERED: metoprolol tartrate 1mg/ml inj IV ONE (09:50)
--- NOTE | 2021-10-18 09:50 | NUR ---
Dr. Zaheer lund Stated that since the patient just came out of ARDs, to hold the fluids for now.
[2021-10-18] MEDS: metoprolol tartrate 25mg tablet PO SCH ×3 (10:41→19:52)
[2021-10-18] MEDS ORDERED: insulin Lispro (HumaLOG) vial - multi-dose SQ SCH (11:15)
--- NOTE | 2021-10-18 13:00 | NUR ---
Problems reprioritized. Patient report given, questions answered & plan of care reviewed with Jessica.
--- NOTE | 2021-10-18 13:00 | NUR ---
Patient in room PCU 3009. I have received report from Thomas FRY ICU and had the opportunity to ask questions and assume patient care.
--- NOTE | 2021-10-18 13:30 | NUR ---
I was at lunch so, Pt was received by Jo RN traveler our resource nurse. Jo, tucked her in, did the 2 RN skin check as well since she stated this was her Pt before pt was transferred to ICU. Pt is A & O x 4 and in no apparent distress. pt has a rectal tube, araujo, NG tube which was clamp since this AM according to report from Thomas in ICU. Pt is on puree diet and NG will come out tomorrow if she is able to tolerate food. Pt is given nectar thicken fluids and is a FEEDER. Pt has an opti on coccyx and some abrasions on LLE. No open wound observed. bruising on bilateral arms from previous IV's. Pt has a left upper picc Triple lumen.
[2021-10-18] MEDS: LORazepam 2 mg/ml vial IV PRN ×2 (15:30→19:54)
[2021-10-18] MEDS ORDERED: dextrose 5%-water 1,000 ML IV SCH (18:50)
--- NOTE | 2021-10-18 18:56 | NUR ---
Problems reprioritized. Patient report given, questions answered & plan of care reviewed with Edie FRY.
[2021-10-18] MEDS ORDERED: magnesium 2GM in 50ml NS 50 ML IV PRN (19:05)
[2021-10-18] MEDS ORDERED: magnesium 4gm in 100ml NS 100 ML IV PRN (19:05)
[2021-10-18] MEDS ORDERED: potassium Cl 20 mEq SR tablet PO PRN ×2 (19:05)
[2021-10-18] MEDS ORDERED: potassium CL 10mEq/100ml bag 100 ML IV PRN (19:05)
--- NOTE | 2021-10-18 20:33 | NUR ---
Paged Dr. Cintron at 2030. Pt RM 3009 [place], Jo- lung sounds coarse crackles. She is 92% on 1L. BP 181/106, HR 122. Would you like to give Lasix? Kathy, [phone]
[2021-10-18] MEDS: insulin glargine (Lantus) pen - multi-dose SQ SCH (21:00)
--- NOTE | 2021-10-18 21:59 | NUR ---
Dr. Cintron responded to page. Telephone order given to discontinue IV D5 at 100, since patient is eating and drinking. Order given for Lasix 40 mg IV once for bilateral coarse crackles and BP of 181/106.
[2021-10-18] MEDS ORDERED: furosemide 40mg/4ml inj IV ONE (22:05)
[2021-10-19] VITALS (9 sets, daily range): BP systolic 133–165; BP diastolic 86–111
--- NOTE | 2021-10-19 00:12 | NUR ---
Paged Dr. Cintron at [phone] MESSAGE: Rm [phone] Jo Olson- Patient now has HR 130, T 100.3, and RR 30. Please advise.
--- NOTE | 2021-10-19 00:15 | NUR ---
Dr Cintron responded. HR of 130 is to be expected with elevated temp of 100.3. Give Tylenol and continue to monitor.
[2021-10-19] MEDS: acetaminophen 325mg/10.15ml oral unit dose solution NG PRN (00:28)
[2021-10-19] MEDS: metoprolol tartrate 25mg tablet PO SCH ×4 (02:19→19:29)
[2021-10-19] MEDS: ipratropium/albuterol 3ml nebule NEB SCH ×6 (03:04→23:45)
[2021-10-19] MEDS: LORazepam 2 mg/ml vial IV PRN ×3 (04:32→16:14)
[2021-10-19] MEDS: heparin, porcine 5000 units/ml vial SQ SCH ×3 (04:36→19:30)
[2021-10-19] MEDS: vancomycin/NS 1 GM ADD-VANTAGE 250 ML IV SCH (04:43)
--- NOTE | 2021-10-19 05:20 | NUR ---
Deflated pt rectal tube and removed 30 ml of water then re-inflated with 30 ml. Patient tolerated well.
--- NOTE | 2021-10-19 06:37 | NUR ---
Problems reprioritized. Patient report given, questions answered & plan of care reviewed with ANG Soriano.
--- NOTE | 2021-10-19 06:42 | NUR ---
Patient in room PCU 3009. I have received report from Roger and had the opportunity to ask questions and assume patient care.
[2021-10-19 07:20] LABS: ALANINE AMINOTRANSFERASE 51 U/L (12-78); ALBUMIN/GLOBULIN RATIO 0.4 (1.1-1.5); ALKALINE PHOSPHATASE 94 IU/L (46-116); ANION GAP 12 (8-16); ASPARTATE AMINO TRANSFERASE 33 U/L (10-37); BILIRUBIN,TOTAL 0.5 MG/DL (0.1-1.0); BLOOD UREA NITROGEN 60 MG/DL (7-18); CALCIUM 8.8 MG/DL (8.5-10.1); CHLORIDE 113 MMOL/L (99-107); GLUCOSE 192 MG/DL (70-104); MAGNESIUM 1.4 MG/DL (1.5-2.4); PHOSPHORUS 4.5 MG/DL (2.3-4.5); POTASSIUM 3.6 MMOL/L (3.5-5.1); PREALBUMIN 21.3 MG/DL (19-36); SODIUM 146 MMOL/L (135-145); TOTAL CARBON DIOXIDE 20.9 MMOL/L (24-32); eGFR 35 ML/MIN
[2021-10-19] MEDS ORDERED: duloxetine 30mg CAPSULE.DR PO SCH (08:00)
[2021-10-19] MEDS: K and/or MAG REPLACEMENT MC SCH ×2 (08:00→20:00)
[2021-10-19] MEDS: MULTIVIT-MIN/FERROUS GLUCONATE 9 MG/15 ML LIQUID NG SCH (08:46)
[2021-10-19] MEDS: docusate sodium 100mg/10ml UD cup NG SCH (08:46)
[2021-10-19] MEDS: aspirin 81mg tab.chew NG SCH (08:47)
[2021-10-19] MEDS: nicotine 14mg patch - 24hr TD SCH (08:47)
[2021-10-19] MEDS: lansoprazole 15mg solutab NG SCH (08:48)
[2021-10-19] MEDS: thiamine 100mg tablet NG SCH (08:48)
[2021-10-19] MEDS: ferrous sulfate 325mg tablet PO SCH ×2 (08:49→19:27)
[2021-10-19] MEDS: folic acid 1mg tablet NG SCH (08:49)
[2021-10-19] MEDS: atorvastatin 20mg tablet NG SCH (08:49)
[2021-10-19] MEDS: ascorbic acid 500mg tablet PO SCH ×2 (08:49→19:25)
--- NOTE | 2021-10-19 08:53 | NUR ---
F/u 10/19: Pt has been extubated since 10/17 and is now in Puree/NTL diet per TELETYPE INSTALLER recs. NGT has been pulled. Pt has consumed mostly 0-25% of meals since extubation, remains weak and needs feeder per documentation. Will recommend Ensure Enlive TID to attempt to optimize PO intake. Pt w/ rectal tube, 600ml output noted 10/18. Will continue to monitor. Recs: 1) Continue Puree/NTL per TELETYPE INSTALLER recs 2) Ensure Enlive TID; pending MD verification 3) Consider Carb controlled diet if PO improves 4) Bowel care per rx 5) Weekly wts 6) New DM this admit per physician; A1C 6.5% w/ no prior hx or DM home meds per EMR. Would require DM DX by physician prior to RD visit for education Addendum: 10/19/21 at [address] Amended: Links added.
--- NOTE | 2021-10-19 09:16 | NUR ---
Patients vitals are a little concerning to be given her diagnosis. MD paged: PAGER ID: [phone] MESSAGE: [phone] Jo Olson: Patients BP running 149/99 - 166/109, HR has been tachy 115-140 bpm. Temp 98.7, respirations 38/min. Has a hard time speaking without trying to catch her breath. Says this is new this morning. [facility] 7609
--- NOTE | 2021-10-19 09:17 | NUR ---
Dr Sosa responded to page, said order STAT ABG and Chest X RAY and page respiratory to evaluate.
--- NOTE | 2021-10-19 09:27 | NUR ---
Respiratory paged for STAT eval and ABG. Radiology paged for STAT chest x ray both telephone order per MD
[2021-10-19] MEDS ORDERED: LORazepam 1 MG tablet PO PRN (09:40)
[2021-10-19 09:43] LABS: ABG HCO3 19.1 mmol/L (22.0-26.0); ABG PCO2 (T) 23.1 mmHg (32.0-45.0); ALLEN'S TEST POSITIVE; FCOHb 0.3 % (0.0-3.9); FLOW 2 L/min; FMetHb 0.1 % (0.0-1.5); FO2Hb 92.6 % (94-97)
[2021-10-19] MEDS: magnesium 2GM in 50ml NS 50 ML IV PRN (10:03)
--- NOTE | 2021-10-19 12:42 | NUR ---
PRESSURE ULCER EDUCATION: DEFINITION: A pressure ulcer is an area of skin that breaks down when you stay in one position too long. The constant pressure against the skin reduces the blood flow to that area and the affected tissue dies. CAUSES: "Being bedridden or in a wheelchair "Fragile skin "Having a chronic condition, such as diabetes or vascular disease "Inability to move certain parts of your body without assistance "Older age "Incontinence of urine or stool SYMPTOMS: "A reddened area that DOES NOT turn white when pressed on - this can be the beginning of a pressure ulcer "A blister, deep sore or a crater - these can be advanced pressure ulcers FIRST AID: "Relieve the pressure on this area "Keep the area clean and dry "Call your primary doctor if you see any of the above symptoms "DO NOT massage the area "DO NOT use a donut shaped or ring shaped pillow- these actually interfere with the blood flow and cause complications PREVENTION: "Check for pressure ulcers everyday "Change position at least every two hours to relieve pressure "Use items that help relieve pressure- pillows, sheepskin, foam padding, and powders. "Keep skin clean and dry "Eat healthy well balanced meals "Exercise daily IF YOU SEE ANY OF THESE SYMPTOMS WHILE IN THE HOSPITAL - TELL YOUR NURSE IMMEDIATELY. IF YOU SEE ANY OF THESE SYMPTOMS WHILE AT HOME OR HAVE ANY QUESTIONS OR CONCERNS ABOUT PRESSURE ULCERS - CALL YOUR PRIMARY DOCTOR IMMEDIATELY. Addendum: 10/19/21 at 1243 by Jo Amanda LVN Amended: Links added.
--- NOTE | 2021-10-19 13:00 | NUR ---
Martinez and PICC line DC'd per MD order. No complications. Pressure applied to PICC site for 5 minutes, then checked and no bleeding was present. Dressing and tape applied. 20G PIV inserted in left forearm and is saline locked. Initialed, dated and timed.
--- NOTE | 2021-10-19 14:09 | NUR ---
PAGER ID: [phone] MESSAGE: [phone] Jo Olson: PT has continued to have RR of 37 even after 1mg Ativan. Heart rate is hanging out in 140s. Now has a temp of 100.1 and is in and out of confusion. On 3 of @ 92 Should we order another ABG? Christie Chas
--- NOTE | 2021-10-19 14:17 | NUR ---
Dr Sosa called in response to my page. Says she thinks confusion is probably just from patients meds. Labs and x ray are looking better. Doesnt think another ABG is warranted. I voiced concern about the patients respiratory rate still being around 37 (which has been consistent since 0800 this morning) as the Ativan hasn't seemed to help. says she is probably just anxious.
--- NOTE | 2021-10-19 14:32 | NUR ---
PAGER ID: [phone] MESSAGE: [phone] Jo Olson: Can you DC the blood sugar checks since patient is no longer in ICU or on tube feeds? She's eating great. Christie Chas
--- NOTE | 2021-10-19 14:34 | NUR ---
Did not DC rectal tube as patient is still having very loose watery stools. Charge nurse agrees to leave in.
[2021-10-19] MEDS ORDERED: diltiazem-NS 100mg/100ml 100 ML IV SCH (14:35)
[2021-10-19 14:58] LABS: BASOPHILS # (AUTO) 0.1 X10'3 (0-0.2); BASOPHILS % (AUTO) 0.7 % (0-1); EOSINOPHILS # (AUTO) 0.1 X10'3 (0-0.9); EOSINOPHILS % (AUTO) 0.4 % (0-6); HEMATOCRIT 33.1 % (35.0-45.0); HEMOGLOBIN 11.1 g/dl (12.0-16.0); LYMPHOCYTES # (AUTO) 0.7 X10'3 (1.1-4.8); LYMPHOCYTES % (AUTO) 4.4 % (21-51); MEAN CORPUSCULAR HEMOGLOBIN 31.6 PG (27.0-31.0); MEAN CORPUSCULAR HGB CONC 33.7 g/dL (33.0-36.5); MEAN CORPUSCULAR VOLUME 93.8 FL (78-98); MEAN PLATELET VOLUME 8.4 FL (7.4-10.4); MONOCYTES # (AUTO) 0.9 X10'3 (0-0.9); MONOCYTES % (AUTO) 6.3 % (2-12); NEUTROPHILS # (AUTO) 13.2 X10'3 (1.8-7.7); NEUTROPHILS % (AUTO) 88.2 % (42-75); PLATELET COUNT 291 X10'3 (140-440); RED BLOOD COUNT 3.52 X10'6 (4.20-5.60); RED CELL DISTRIBUTION WIDTH 12.8 % (11.5-14.5); WHITE BLOOD COUNT 14.9 X10'3 (4.5-11.0)
[2021-10-19 15:19] LABS: ALANINE AMINOTRANSFERASE 52 U/L (12-78); ALBUMIN 2.1 G/DL (3.4-5.0); ALBUMIN/GLOBULIN RATIO 0.4 (1.1-1.5); ALKALINE PHOSPHATASE 99 IU/L (46-116); ANION GAP 14 (8-16); ASPARTATE AMINO TRANSFERASE 31 U/L (10-37); BILIRUBIN,TOTAL 0.5 MG/DL (0.1-1.0); BLOOD UREA NITROGEN 61 MG/DL (7-18); BUN/CREATININE RATIO 38.1 (6.6-38.0); CALCIUM 9.4 MG/DL (8.5-10.1); CHLORIDE 114 MMOL/L (99-107); GLUCOSE 226 MG/DL (70-104); POTASSIUM 3.8 MMOL/L (3.5-5.1); SODIUM 148 MMOL/L (135-145); TOTAL CARBON DIOXIDE 19.8 MMOL/L (24-32); TOTAL PROTEIN 7.4 G/DL (6.4-8.2); eGFR 32 ML/MIN
--- NOTE | 2021-10-19 17:36 | NUR ---
I still have large concern for how this patient is looking. Her respirations have been between 37-42 since 0800 this morning. Her blood pressure is high (170/100, 150/95 etc), she has been running a fever on and off, and has been tachy most of the day. I have paged MD for concerns as well as talked with the charge nurse. Both don't seem to be concerned and are chalking it up to anxiety. I personally disagree based on multiple issues this patient is experiencing. I have suggested calling a rapid twice, but have been told is isn't needed. Im concerned for how long this patient can compensate in her current state.
--- NOTE | 2021-10-19 17:36 | NUR ---
PAGER ID: [phone] MESSAGE: [phone] Jo Olson: Patient has family in the room that are concerned about how the patient looks. Patient says she is still very anxious. Do we have other options for anxiety? Last Ativan dose was at 1600
[2021-10-19] MEDS ORDERED: LORazepam 2 mg/ml vial IV PRN (17:45)
--- NOTE | 2021-10-19 17:50 | NUR ---
Patients brother is in room and spoke with me in the arango. He said patient rarely leaves her house, has bad anxiety, and is an alcoholic, which was not reported anywhere in the patients history that i could find. Dr Sosa ordered 2mg Q4 PRN ativan.
[2021-10-19] MEDS: lactose-reduced food (Ensure Enlive) - 237ml bottle PO SCH (18:00)
[2021-10-20] VITALS (30 sets, daily range): BP systolic 90–167; BP diastolic 55–136
[2021-10-20 00:14] LABS: ABG BASE EXCESS -4.3 mmol/L (-2.0-2.0); ABG PCO2 (T) 24.2 mmHg (32.0-45.0); ABG PO2 (T) 79.8 mmHg (75.0-100.0); ALLEN'S TEST POSITIVE; FCOHb 0.3 % (0.0-3.9); FMetHb 0.2 % (0.0-1.5); FO2Hb 92.5 % (94-97); PATIENT TEMPERATURE 39.4; TOTAL HEMOGLOBIN 11.8 G/dl (12.0-16.0)
--- NOTE | 2021-10-20 00:18 | NUR ---
[address] Sosa [phone] Dr. Sosa returned page. Reported HR between 130-140s. Resp rate 40s. Order for stat ABG and give call with results. ABG drawn [address] Sosa [phone] Reported ABG results. Order to increase diltiazem drip to 7.5mg/hr
[2021-10-20] MEDS ORDERED: diltiazem-NS 100mg/100ml 100 ML IV SCH (00:35)
[2021-10-20] MEDS: metoprolol tartrate 25mg tablet PO SCH ×4 (02:22→19:37)
[2021-10-20] MEDS: ipratropium/albuterol 3ml nebule NEB SCH ×6 (04:11→22:47)
--- NOTE | 2021-10-20 04:15 | NUR ---
0415 INSURANCE INSTRUCTOR called 0525 Pt transferred to ICU. Report given to Jose Luis
[2021-10-20] MEDS ORDERED: furosemide 40mg/4ml inj ONE (04:19)
[2021-10-20] MEDS ORDERED: furosemide 20 MG/2 ML vial IV ONE (04:20)
[2021-10-20 05:20] LABS: BASOPHILS # (AUTO) 0.2 X10'3 (0-0.2); EOSINOPHILS % (AUTO) 0.3 % (0-6); HEMATOCRIT 33.7 % (35.0-45.0); LYMPHOCYTES # (AUTO) 0.8 X10'3 (1.1-4.8); LYMPHOCYTES % (AUTO) 5.1 % (21-51); MEAN CORPUSCULAR HEMOGLOBIN 30.7 PG (27.0-31.0); MEAN CORPUSCULAR HGB CONC 32.8 g/dL (33.0-36.5); MEAN CORPUSCULAR VOLUME 93.6 FL (78-98); MEAN PLATELET VOLUME 9.1 FL (7.4-10.4); MONOCYTES # (AUTO) 1.2 X10'3 (0-0.9); MONOCYTES % (AUTO) 7.1 % (2-12); NEUTROPHILS % (AUTO) 86.5 % (42-75); PLATELET COUNT 305 X10'3 (140-440); RED CELL DISTRIBUTION WIDTH 13.4 % (11.5-14.5); WHITE BLOOD COUNT 16.2 X10'3 (4.5-11.0)
[2021-10-20 05:29] LABS: ALANINE AMINOTRANSFERASE 46 U/L (12-78); ALBUMIN 2.1 G/DL (3.4-5.0); ALBUMIN/GLOBULIN RATIO 0.4 (1.1-1.5); ALKALINE PHOSPHATASE 95 IU/L (46-116); ANION GAP 16 (8-16); ASPARTATE AMINO TRANSFERASE 24 U/L (10-37); BILIRUBIN,TOTAL 0.5 MG/DL (0.1-1.0); BLOOD UREA NITROGEN 65 MG/DL (7-18); BUN/CREATININE RATIO 39.6 (6.6-38.0); CALCIUM 9.7 MG/DL (8.5-10.1); CHLORIDE 117 MMOL/L (99-107); CREATININE 1.64 MG/DL (0.40-0.90); GLUCOSE 169 MG/DL (70-104); MAGNESIUM 1.9 MG/DL (1.5-2.4); PHOSPHORUS 4.8 MG/DL (2.3-4.5); SODIUM 151 MMOL/L (135-145); TOTAL CARBON DIOXIDE 17.9 MMOL/L (24-32); TOTAL PROTEIN 7.6 G/DL (6.4-8.2); TRIGLYCERIDES 150 MG/DL (20-135); eGFR 31 ML/MIN
[2021-10-20] MEDS ORDERED: amiodarone 150mg/dext, iso-os 100 ML IV ONE ×3 (05:35→05:40)
[2021-10-20] MEDS ORDERED: amiodarone/D5 360MG/200ML BAG 200 ML IV SCH (05:35)
[2021-10-20] MEDS: acetaminophen 325mg/10.15ml oral unit dose solution NG PRN ×2 (05:48→19:35)
--- NOTE | 2021-10-20 05:56 | NUR ---
CATHERINE (next of kin) [son]! spoke with the son Ambrocio (p: [phone]) He does not want any visitors at this time. all Visitors to be okayed by him first. Requests to be primary contact. All other family members to contact him. Updated on pts condition. transfer to ICU.
[2021-10-20] MEDS ORDERED: PERFLUTREN PROTEIN-A MICROSPHR (Optison) 0.22 MG/ML 3ML VIAL IV PRN (06:00)
--- NOTE | 2021-10-20 06:00 | NUR ---
Patient in room CICU 2016. I have received report from Ben RN from PCU and had the opportunity to ask questions and assume patient care. Jo came back to ICU after having a rapid response called by the RT at roughly 0400. She is febrile at roughly 39.6. Modeling throughout her core and lower extremities. She is tachycardic in the 130-150's. Upon arrival to ICU a araujo was placed along with three PIV's. After discussing with Dr. Rangel and orders were placed. First and second rounds of Amio was initiated. Tylenol was given for fever. Per Dr. Rangel, intubation is recommended and is being completed by the ER doc. I have given report to day shift and the RN has assumed responsibility of the patient.
[2021-10-20] MEDS: amiodarone/D5 360MG/200ML BAG 200 ML IV SCH ×2 (06:06→11:34)
[2021-10-20] MEDS ORDERED: etomidate 2mg/ml inj. IV ONE (06:10)
[2021-10-20] MEDS ORDERED: rocuronium 10mg/ml inj IV ONE (06:15)
[2021-10-20] MEDS ORDERED: midazolam 1 mg/ML 2ml injection IV ONE ×2 (06:15→06:30)
[2021-10-20] MEDS ORDERED: midazolam 1 mg/ML 2ml injection ONE (06:24)
[2021-10-20] MEDS ORDERED: propofol 1000mg/100ml bottle 100 ML IV ONE (06:25)
[2021-10-20] MEDS: propofol 1000mg/100ml bottle 100 ML IV SCH ×3 (06:45→23:54)
--- NOTE | 2021-10-20 07:00 | NUR ---
PATIENT TACHYPNIC IN THE 40'S HR IN THE 130'S, ON BIPAP AT 100% FIO2 USING ACCESSORY MUSCLES, PER DR. LARSON PLEASE CALL ER TO INTUBATE PATIENT. DR GARDNER WAS PAGED. PATIENT INTUBATED GIVEN 40MG OF ETOMIDATE, 100MG OF ROCURONIUM AND 5 MG OF VERSED. ETT 7.5 23 CM AT THE LIP, CXR ORDERED WELL BLOOD CULTURES URINE AND SPUTUM FOR TEMP OF 39.2. PATIENT STARTED ON PROPOFOL.
[2021-10-20 07:19] LABS: ABG BASE EXCESS -5.7 mmol/L (-2.0-2.0); ABG HCO3 18.3 mmol/L (22.0-26.0); ABG OXYGEN SATURATION 96.2 % (94-97); ABG PCO2 (T) 34.4 mmHg (32.0-45.0); ABG PO2 (T) 112.1 mmHg (75.0-100.0); ALLEN'S TEST POSITIVE; FCOHb 0.3 % (0.0-3.9); FMetHb 0.2 % (0.0-1.5); FO2Hb 95.7 % (94-97); PATIENT TEMPERATURE 39.1; PEEP 5 cm H2O; RESPIRATORY RATE 16 b/min; TIDAL VOLUME 548 mL; TOTAL HEMOGLOBIN 11.6 G/dl (12.0-16.0)
[2021-10-20] MEDS: lactose-reduced food (Ensure Enlive) - 237ml bottle PO SCH ×2 (08:00→13:00)
[2021-10-20] MEDS: K and/or MAG REPLACEMENT MC SCH ×2 (08:00→20:00)
[2021-10-20] MEDS ORDERED: diltiazem 5mg/ml 5ml inj. IV ONE (08:00)
[2021-10-20 08:26] LABS: CLARITY,URINE CLEAR (Clear); GLUCOSE, URINE NEGATIVE (Neg); KETONES,URINE NEGATIVE (Neg); LEUKOCYTE ESTERASE ,URINE NEGATIVE (Neg); NITRITES, URINE NEGATIVE (Neg); OCCULT BLOOD,URINE NEGATIVE (Neg); PROTEIN,URINE NEGATIVE (Neg); UROBILINOGEN,URINE 0.2 E.U/dL (0.2-1.0)
[2021-10-20 08:27] LABS: COLOR,URINE STRAW (Yellow); UA COLLECTION TYPE NON-SPECIFIED
[2021-10-20] MEDS ORDERED: acetaminophen 1,000mg/100ml IV 100 ML IV ONE ×2 (08:55→18:05)
[2021-10-20] MEDS: MULTIVIT-MIN/FERROUS GLUCONATE 9 MG/15 ML LIQUID NG SCH (09:22)
[2021-10-20] MEDS: ascorbic acid 500mg tablet PO SCH ×2 (09:23→18:10)
[2021-10-20] MEDS: folic acid 1mg tablet NG SCH (09:23)
[2021-10-20] MEDS: atorvastatin 20mg tablet NG SCH (09:23)
[2021-10-20] MEDS: ferrous sulfate 325mg tablet PO SCH ×2 (09:23→19:36)
[2021-10-20] MEDS: thiamine 100mg tablet NG SCH (09:23)
[2021-10-20] MEDS: lansoprazole 15mg solutab NG SCH (09:23)
[2021-10-20] MEDS: duloxetine 30mg CAPSULE.DR PO SCH (09:23)
[2021-10-20] MEDS: vancomycin/NS 1 GM ADD-VANTAGE 250 ML IV SCH (09:24)
[2021-10-20] MEDS: heparin, porcine 5000 units/ml vial SQ SCH ×3 (09:24→19:36)
[2021-10-20] MEDS: aspirin 81mg tab.chew NG SCH (09:25)
[2021-10-20] MEDS: nicotine 14mg patch - 24hr TD SCH (09:25)
[2021-10-20] MEDS: cefepime 1GM/NS ADD-VANTAGE 100 ML IV SCH ×3 (09:26→20:00)
[2021-10-20] MEDS: FENTANYL-0.9 % NACL/PF 100 ML IV PRN ×2 (09:27→23:53)
--- NOTE | 2021-10-20 12:03 | NUR ---
TF consult: Pt s/p rapid response this morning and required intubation. Pt continues with an NGT in place, TF to resume per MD at critical care rounds. Propofol visualized at bedside to be running at 5.61 mL/hr providing 147 kcal/day, TF recommendations have been adjusted accordingly. [facility] 10/19. Will continue to follow closely. Recommendations: 1) Given Propofol at 5.61 mL/hr (147 kcal/day), continuous Vital HP via NGT with 65 mL/hr goal rate. To provide 1560 mL total volume/day, 1560 kcal, 137 g protein, and 1304 mL water 2) IF Propofol discontinued, continuous Vital HP via NGT with 70 mL/hr goal rate. To provide 1680 mL total volume/day, 1680 kcal, 147 g protein, and 1405 mL water 3) Monitor Propofol rate and adjust TF as appropriate 4) Additional 150 mL water flush Q4H; monitor serum Na 5) Prealbumin q Saturday/ 6) Daily scaled weights 7) BSS with ST prior to PO diet advancement following extubation, previously on pureed diet with NTL per rec 10/19 8) New DM this admit per physician; A1C 6.5% w/ no prior hx or DM home meds per EMR. Would require DM dx by physician prior to RD visit for education Addendum: 10/20/21 at [address] Amended: Links added.
[2021-10-20 16:42] LABS: CHOL/HDL RATIO 4.7 (0.00-4.99); CHOLESTEROL 135 MG/DL (0-200); HDL CHOLESTEROL 29 MG/DL (35-60); LDL CHOLESTEROL 76 MG/DL (50-100); TRIGLYCERIDES 161 MG/DL (20-135)
[2021-10-20] MEDS: amiodarone 200mg tablet PO SCH (19:36)
[2021-10-21] VITALS (36 sets, daily range): BP systolic 98–126; BP diastolic 47–67
[2021-10-21] MEDS: metoprolol tartrate 25mg tablet PO SCH ×4 (02:00→20:27)
[2021-10-21 02:19] LABS: PHOSPHORUS 5.2 MG/DL (2.3-4.5)
[2021-10-21] MEDS: acetaminophen 325mg/10.15ml oral unit dose solution NG PRN (03:01)
[2021-10-21] MEDS: ipratropium/albuterol 3ml nebule NEB SCH ×6 (03:08→23:20)
[2021-10-21] MEDS: heparin, porcine 5000 units/ml vial SQ SCH ×3 (03:28→20:25)
[2021-10-21 03:34] LABS: ABG BASE EXCESS -5.1 mmol/L (-2.0-2.0); ABG HCO3 17.6 mmol/L (22.0-26.0); ABG PCO2 (T) 26.9 mmHg (32.0-45.0); ABG PO2 (T) 85.6 mmHg (75.0-100.0); ALLEN'S TEST Modified; FCOHb 0.2 % (0.0-3.9); FMetHb 0.1 % (0.0-1.5); FO2Hb 94.7 % (94-97); PATIENT TEMPERATURE 38.2; PEEP 5 cm H2O; RESPIRATORY RATE 16 b/min; TIDAL VOLUME 550 mL; TOTAL HEMOGLOBIN 9.8 G/dl (12.0-16.0)
[2021-10-21] MEDS ORDERED: VANCOMYCIN LEVEL IV ONE (04:30)
[2021-10-21] MEDS: vancomycin/NS 1 GM ADD-VANTAGE 250 ML IV SCH (05:00)
[2021-10-21] MEDS: propofol 1000mg/100ml bottle 100 ML IV SCH ×3 (06:00→13:33)
[2021-10-21 07:32] LABS: VANCOMYCIN,TROUGH 42.3 UG/ML (6.0-14.0)
[2021-10-21] MEDS: cefepime 1GM/NS ADD-VANTAGE 100 ML IV SCH ×2 (07:48→20:26)
[2021-10-21] MEDS: duloxetine 30mg CAPSULE.DR PO SCH (07:49)
[2021-10-21] MEDS: acetaminophen 1,000mg/100ml IV 100 ML IV PRN ×2 (07:49→14:06)
[2021-10-21] MEDS: thiamine 100mg tablet NG SCH (07:49)
[2021-10-21] MEDS: ascorbic acid 500mg tablet PO SCH ×2 (07:49→17:35)
[2021-10-21] MEDS: ferrous sulfate 325mg tablet PO SCH ×2 (07:50→20:28)
[2021-10-21] MEDS: atorvastatin 20mg tablet NG SCH (07:50)
[2021-10-21] MEDS: folic acid 1mg tablet NG SCH (07:50)
[2021-10-21] MEDS: aspirin 81mg tab.chew NG SCH (07:50)
[2021-10-21] MEDS: amiodarone 200mg tablet PO SCH ×2 (07:50→20:28)
[2021-10-21] MEDS: lansoprazole 15mg solutab NG SCH (07:50)
[2021-10-21] MEDS: mineral oil/petrolatum ophthal oint EACHEYE SCH ×3 (07:51→20:30)
[2021-10-21 07:53] LABS: BASOPHILS # (AUTO) 0.1 X10'3 (0-0.2); BASOPHILS % (AUTO) 0.5 % (0-1); EOSINOPHILS # (AUTO) 0.4 X10'3 (0-0.9); EOSINOPHILS % (AUTO) 3.3 % (0-6); HEMATOCRIT 27.9 % (35.0-45.0); HEMOGLOBIN 9.3 g/dl (12.0-16.0); LYMPHOCYTES # (AUTO) 0.4 X10'3 (1.1-4.8); LYMPHOCYTES % (AUTO) 3.7 % (21-51); MEAN CORPUSCULAR HGB CONC 33.2 g/dL (33.0-36.5); MEAN CORPUSCULAR VOLUME 96.6 FL (78-98); MEAN PLATELET VOLUME 9.5 FL (7.4-10.4); MONOCYTES # (AUTO) 0.4 X10'3 (0-0.9); MONOCYTES % (AUTO) 3.7 % (2-12); NEUTROPHILS # (AUTO) 9.4 X10'3 (1.8-7.7); NEUTROPHILS % (AUTO) 88.8 % (42-75); PLATELET COUNT 237 X10'3 (140-440); RED BLOOD COUNT 2.89 X10'6 (4.20-5.60); RED CELL DISTRIBUTION WIDTH 13.6 % (11.5-14.5); WHITE BLOOD COUNT 10.6 X10'3 (4.5-11.0)
[2021-10-21] MEDS: K and/or MAG REPLACEMENT MC SCH ×2 (08:00→20:28)
[2021-10-21] MEDS ORDERED: cefepime 1GM/NS ADD-VANTAGE 100 ML IV SCH (08:00)
[2021-10-21 08:05] LABS: ALANINE AMINOTRANSFERASE 31 U/L (12-78); ALBUMIN 1.8 G/DL (3.4-5.0); ALBUMIN/GLOBULIN RATIO 0.4 (1.1-1.5); ALKALINE PHOSPHATASE 73 IU/L (46-116); ANION GAP 17 (8-16); ASPARTATE AMINO TRANSFERASE 18 U/L (10-37); BILIRUBIN,TOTAL 0.3 MG/DL (0.1-1.0); BLOOD UREA NITROGEN 73 MG/DL (7-18); BUN/CREATININE RATIO 39.5 (6.6-38.0); CALCIUM 8.9 MG/DL (8.5-10.1); CHLORIDE 118 MMOL/L (99-107); CREATININE 1.85 MG/DL (0.40-0.90); GLUCOSE 133 MG/DL (70-104); POTASSIUM 3.2 MMOL/L (3.5-5.1); SODIUM 154 MMOL/L (135-145); TOTAL CARBON DIOXIDE 19.4 MMOL/L (24-32); TOTAL PROTEIN 6.3 G/DL (6.4-8.2); eGFR 27 ML/MIN
[2021-10-21] MEDS: nicotine 14mg patch - 24hr TD SCH (08:24)
[2021-10-21] MEDS: MULTIVIT-MIN/FERROUS GLUCONATE 9 MG/15 ML LIQUID NG SCH (08:24)
[2021-10-21] MEDS: potassium CL 10mEq/100ml bag 100 ML IV PRN ×4 (09:00→17:26)
[2021-10-21] MEDS: FENTANYL-0.9 % NACL/PF 100 ML IV PRN (15:19)
[2021-10-22] VITALS (28 sets, daily range): BP systolic 98–146; BP diastolic 42–82
[2021-10-22] MEDS: propofol 1000mg/100ml bottle 100 ML IV SCH ×2 (00:05→04:23)
[2021-10-22] MEDS: metoprolol tartrate 25mg tablet PO SCH ×4 (01:43→20:07)
[2021-10-22] MEDS: mineral oil/petrolatum ophthal oint EACHEYE SCH ×2 (01:43→08:00)
[2021-10-22] MEDS: FENTANYL-0.9 % NACL/PF 100 ML IV PRN (02:51)
[2021-10-22] MEDS: ipratropium/albuterol 3ml nebule NEB SCH ×6 (03:12→23:20)
[2021-10-22 03:37] LABS: ABG BASE EXCESS -7.4 mmol/L (-2.0-2.0); ABG HCO3 16.6 mmol/L (22.0-26.0); ABG OXYGEN SATURATION 95.2 % (94-97); ABG PCO2 (T) 30.1 mmHg (32.0-45.0); ABG PO2 (T) 91.2 mmHg (75.0-100.0); ALLEN'S TEST Modified; FCOHb 0.3 % (0.0-3.9); FMetHb 0.3 % (0.0-1.5); FO2Hb 94.6 % (94-97); PATIENT TEMPERATURE 38.7; PEEP 5 cm H2O; RESPIRATORY RATE 16 b/min; TIDAL VOLUME 550 mL; TOTAL HEMOGLOBIN 8.2 G/dl (12.0-16.0)
[2021-10-22] MEDS: heparin, porcine 5000 units/ml vial SQ SCH ×3 (03:54→20:07)
[2021-10-22] MEDS: NOREPINEPHRINE BITARTRATE/D5W 250 ML IV SCH ×2 (04:15→18:17)
[2021-10-22] MEDS ORDERED: VANCOMYCIN LEVEL IV ONE (05:30)
[2021-10-22 06:56] LABS: BASOPHILS % (AUTO) 0.4 % (0-1); EOSINOPHILS # (AUTO) 0.4 X10'3 (0-0.9); EOSINOPHILS % (AUTO) 4.1 % (0-6); HEMATOCRIT 26.2 % (35.0-45.0); HEMOGLOBIN 8.6 g/dl (12.0-16.0); LYMPHOCYTES # (AUTO) 0.7 X10'3 (1.1-4.8); LYMPHOCYTES % (AUTO) 7.7 % (21-51); MEAN CORPUSCULAR HEMOGLOBIN 32.2 PG (27.0-31.0); MEAN CORPUSCULAR VOLUME 97.5 FL (78-98); MEAN PLATELET VOLUME 9.5 FL (7.4-10.4); MONOCYTES # (AUTO) 0.4 X10'3 (0-0.9); MONOCYTES % (AUTO) 4.7 % (2-12); NEUTROPHILS # (AUTO) 7.7 X10'3 (1.8-7.7); NEUTROPHILS % (AUTO) 83.1 % (42-75); PLATELET COUNT 212 X10'3 (140-440); RED BLOOD COUNT 2.68 X10'6 (4.20-5.60); RED CELL DISTRIBUTION WIDTH 14.1 % (11.5-14.5); WHITE BLOOD COUNT 9.2 X10'3 (4.5-11.0)
[2021-10-22 07:02] LABS: ANION GAP 13 (8-16); BLOOD UREA NITROGEN 60 MG/DL (7-18); CALCIUM 8.9 MG/DL (8.5-10.1); CHLORIDE 119 MMOL/L (99-107); CREATININE 1.54 MG/DL (0.40-0.90); GLUCOSE 122 MG/DL (70-104); MAGNESIUM 2.1 MG/DL (1.5-2.4); PHOSPHORUS 4.1 MG/DL (2.3-4.5); POTASSIUM 3.4 MMOL/L (3.5-5.1); SODIUM 151 MMOL/L (135-145); TOTAL CARBON DIOXIDE 19.4 MMOL/L (24-32); eGFR 34 ML/MIN
[2021-10-22 07:03] LABS: ALANINE AMINOTRANSFERASE 25 U/L (12-78); ALBUMIN 1.6 G/DL (3.4-5.0); ALBUMIN/GLOBULIN RATIO 0.4 (1.1-1.5); ALKALINE PHOSPHATASE 78 IU/L (46-116); ASPARTATE AMINO TRANSFERASE 17 U/L (10-37); BILIRUBIN,TOTAL 0.3 MG/DL (0.1-1.0); TOTAL PROTEIN 6.1 G/DL (6.4-8.2); VANCOMYCIN,RANDOM 19.8 UG/ML
[2021-10-22] MEDS: thiamine 100mg tablet NG SCH (08:00)
[2021-10-22] MEDS: atorvastatin 20mg tablet NG SCH (09:04)
[2021-10-22] MEDS: folic acid 1mg tablet NG SCH (09:04)
[2021-10-22] MEDS: cefepime 1GM/NS ADD-VANTAGE 100 ML IV SCH ×2 (09:04→20:06)
[2021-10-22] MEDS: aspirin 81mg tab.chew NG SCH (09:05)
[2021-10-22] MEDS: nicotine 14mg patch - 24hr TD SCH (09:05)
[2021-10-22] MEDS: amiodarone 200mg tablet PO SCH ×2 (09:05→20:06)
[2021-10-22] MEDS: ascorbic acid 500mg tablet PO SCH ×2 (09:05→17:53)
[2021-10-22] MEDS: ferrous sulfate 325mg tablet PO SCH ×2 (09:05→20:07)
[2021-10-22] MEDS: MULTIVIT-MIN/FERROUS GLUCONATE 9 MG/15 ML LIQUID NG SCH (09:05)
[2021-10-22] MEDS: lansoprazole 15mg solutab NG SCH (09:11)
[2021-10-22] MEDS: duloxetine 30mg CAPSULE.DR PO SCH (09:11)
[2021-10-22] MEDS ORDERED: vancomycin/NS 1 GM ADD-VANTAGE 250 ML IV PRN (11:30)
[2021-10-22] MEDS: K and/or MAG REPLACEMENT MC SCH ×2 (20:00→22:00)
[2021-10-22] MEDS: potassium CL 10mEq/100ml bag 100 ML IV PRN ×2 (20:20→21:39)
[2021-10-22] MEDS: potassium Cl 20mEq/100mL bag 100 ML IV PRN (23:36)
[2021-10-23] VITALS (24 sets, daily range): BP systolic 122–153; BP diastolic 56–83
[2021-10-23] MEDS: metoprolol tartrate 25mg tablet PO SCH ×2 (01:55→08:13)
[2021-10-23] MEDS: VANCOMYCIN LEVEL IV SCH (03:00)
[2021-10-23] MEDS: ipratropium/albuterol 3ml nebule NEB SCH ×6 (03:02→23:10)
[2021-10-23] MEDS: heparin, porcine 5000 units/ml vial SQ SCH ×3 (03:21→19:40)
[2021-10-23] MEDS: propofol 1000mg/100ml bottle 100 ML IV SCH (05:39)
[2021-10-23] MEDS ORDERED: vancomycin inj. 750 MG in normal saline 250ml IV soln 250 ML IV ONE (06:35)
[2021-10-23 07:42] LABS: BASOPHILS # (AUTO) 0.1 X10'3 (0-0.2); BASOPHILS % (AUTO) 0.7 % (0-1); EOSINOPHILS # (AUTO) 0.3 X10'3 (0-0.9); EOSINOPHILS % (AUTO) 3.4 % (0-6); HEMATOCRIT 25.4 % (35.0-45.0); HEMOGLOBIN 8.4 g/dl (12.0-16.0); LYMPHOCYTES # (AUTO) 1.1 X10'3 (1.1-4.8); LYMPHOCYTES % (AUTO) 12.5 % (21-51); MEAN CORPUSCULAR HEMOGLOBIN 31.8 PG (27.0-31.0); MEAN CORPUSCULAR HGB CONC 33.2 g/dL (33.0-36.5); MEAN PLATELET VOLUME 9.5 FL (7.4-10.4); MONOCYTES # (AUTO) 0.3 X10'3 (0-0.9); MONOCYTES % (AUTO) 3.4 % (2-12); NEUTROPHILS # (AUTO) 6.9 X10'3 (1.8-7.7); PLATELET COUNT 236 X10'3 (140-440); RED BLOOD COUNT 2.64 X10'6 (4.20-5.60); RED CELL DISTRIBUTION WIDTH 13.6 % (11.5-14.5); WHITE BLOOD COUNT 8.6 X10'3 (4.5-11.0)
[2021-10-23] MEDS ORDERED: pantoprazole 40mg Tablet.DR PO SCH (08:00)
[2021-10-23] MEDS: nicotine 14mg patch - 24hr TD SCH (08:11)
[2021-10-23] MEDS: cefepime 1GM/NS ADD-VANTAGE 100 ML IV SCH (08:11)
[2021-10-23] MEDS: MULTIVIT-MIN/FERROUS GLUCONATE 9 MG/15 ML LIQUID NG SCH (08:12)
[2021-10-23] MEDS: amiodarone 200mg tablet PO SCH (08:12)
[2021-10-23] MEDS: duloxetine 30mg CAPSULE.DR PO SCH (08:12)
[2021-10-23] MEDS: lansoprazole 15mg solutab NG SCH (08:12)
[2021-10-23] MEDS: aspirin 81mg tab.chew NG SCH (08:12)
[2021-10-23] MEDS: ascorbic acid 500mg tablet PO SCH (08:12)
[2021-10-23 08:13] LABS: CLARITY,URINE CLEAR (Clear); COLOR,URINE YELLOW (Yellow); GLUCOSE, URINE NEGATIVE (Neg); KETONES,URINE NEGATIVE (Neg); LEUKOCYTE ESTERASE ,URINE NEGATIVE (Neg); NITRITES, URINE NEGATIVE (Neg); OCCULT BLOOD,URINE MODERATE (Neg); PROTEIN,URINE 30 mg/dl (Neg); UROBILINOGEN,URINE 0.2 E.U/dL (0.2-1.0)
[2021-10-23] MEDS: folic acid 1mg tablet NG SCH (08:13)
[2021-10-23] MEDS: ferrous sulfate 325mg tablet PO SCH (08:13)
[2021-10-23] MEDS: atorvastatin 20mg tablet NG SCH (08:13)
[2021-10-23] MEDS: thiamine 100mg tablet NG SCH (08:13)
[2021-10-23 08:14] LABS: ALANINE AMINOTRANSFERASE 27 U/L (12-78); ALBUMIN 1.6 G/DL (3.4-5.0); ALBUMIN/GLOBULIN RATIO 0.3 (1.1-1.5); ALKALINE PHOSPHATASE 84 IU/L (46-116); ANION GAP 12 (8-16); ASPARTATE AMINO TRANSFERASE 25 U/L (10-37); BILIRUBIN,TOTAL 0.3 MG/DL (0.1-1.0); BLOOD UREA NITROGEN 47 MG/DL (7-18); BUN/CREATININE RATIO 39.5 (6.6-38.0); CALCIUM 9.2 MG/DL (8.5-10.1); CHLORIDE 120 MMOL/L (99-107); CREATININE 1.19 MG/DL (0.40-0.90); GLUCOSE 146 MG/DL (70-104); MAGNESIUM 1.7 MG/DL (1.5-2.4); PHOSPHORUS 2.9 MG/DL (2.3-4.5); POTASSIUM 3.4 MMOL/L (3.5-5.1); PREALBUMIN 15.8 MG/DL (19-36); SODIUM 150 MMOL/L (135-145); TOTAL CARBON DIOXIDE 18.5 MMOL/L (24-32); TOTAL PROTEIN 6.4 G/DL (6.4-8.2); TRIGLYCERIDES 185 MG/DL (20-135); VANCOMYCIN,RANDOM 10.5 UG/ML; eGFR 46 ML/MIN
[2021-10-23 08:19] LABS: UA COLLECTION TYPE NON-SPECIFIED
[2021-10-23 08:22] LABS: BACTERIA,URINE 1+ /HPF (Neg); CELLULAR CAST 0-4 /LPF (NEGATIVE); HYALINE CASTS 0-3 /LPF (NEGATIVE); SQUAMOUS EPITHELIAL CELL,UR MODERATE /LPF (FEW); WBC CLUMPS,URINE MODERATE /HPF (NEGATIVE)
[2021-10-23] MEDS ORDERED: vancomycin/NS 1 GM ADD-VANTAGE 250 ML IV ONE (08:50)
[2021-10-23] MEDS ORDERED: piperacillin/tazo 3.375gm/50ml 50 ML IV SCH ×2 (10:35→13:21)
[2021-10-23] MEDS: K and/or MAG REPLACEMENT MC SCH ×2 (10:58→19:39)
[2021-10-23] MEDS: potassium Cl 20mEq/100mL bag 100 ML IV PRN ×3 (10:58→19:56)
--- NOTE | 2021-10-23 11:13 | NUR ---
Reassessment: Pt has now been extubated since 10/22. Continues to receive TF at goal of Vital HP at 65ml/hr, though since pt is extubated, TF recs will be updated to reflect current nutritional needs, d/w RN. Pt w/ rectal tube, 300ml output documented 10/22. Will continue to monitor and adjust needs as indicated. Recommendations: 1) Continuous TF using Vital AF at 65ml/hr goal to provide 1560ml volume 1872kcals, 117g protein, 1265ml free water 2) Additional water flush 200 Q4H; monitor serum Na 3) Prealbumin q Saturday/ 4) Daily scaled weights 5) BSS with ST prior to PO diet advancement following extubation, previously on pureed diet with NTL per ST recs 10/19 6) Continue routine Thiamine, Folic acid, and MVI for EtOH hx 7) New DM this admit per physician; A1C 6.5% w/ no prior hx or DM home meds per EMR. Would require DM dx by physician prior to RD visit for education Addendum: 10/23/21 at [address] Amended: Links added.
[2021-10-23] MEDS: potassium CL 10mEq/100ml bag 100 ML IV PRN ×2 (11:31→13:19)
[2021-10-23] MEDS ORDERED: LORazepam 1 MG tablet NG PRN (11:57)
[2021-10-23] MEDS: metoprolol tartrate 25mg tablet NG SCH ×2 (14:00→19:37)
[2021-10-23] MEDS: ascorbic acid 500mg tablet NG SCH (18:09)
[2021-10-23] MEDS: amiodarone 200mg tablet NG SCH (19:37)
[2021-10-23] MEDS: ferrous sulfate 300mg/5ml UD oral liquid NG SCH (21:02)
[2021-10-23] MEDS: piperacillin/tazo 3.375gm/50ml 50 ML IV SCH (21:02)
[2021-10-24] VITALS (24 sets, daily range): BP systolic 126–163; BP diastolic 62–90
[2021-10-24] MEDS: metoprolol tartrate 25mg tablet NG SCH ×4 (02:18→20:32)
[2021-10-24] MEDS: ipratropium/albuterol 3ml nebule NEB SCH ×6 (03:00→23:19)
[2021-10-24] MEDS: VANCOMYCIN LEVEL IV SCH (03:00)
[2021-10-24] MEDS: piperacillin/tazo 3.375gm/50ml 50 ML IV SCH ×3 (04:10→20:32)
[2021-10-24] MEDS: heparin, porcine 5000 units/ml vial SQ SCH ×3 (04:11→20:32)
[2021-10-24 05:05] LABS: BASOPHILS # (AUTO) 0.1 X10'3 (0-0.2); BASOPHILS % (AUTO) 0.8 % (0-1); EOSINOPHILS # (AUTO) 0.4 X10'3 (0-0.9); HEMATOCRIT 28.1 % (35.0-45.0); LYMPHOCYTES # (AUTO) 1.4 X10'3 (1.1-4.8); LYMPHOCYTES % (AUTO) 16.1 % (21-51); MEAN CORPUSCULAR HEMOGLOBIN 31.2 PG (27.0-31.0); MEAN CORPUSCULAR HGB CONC 32.2 g/dL (33.0-36.5); MEAN CORPUSCULAR VOLUME 96.8 FL (78-98); MEAN PLATELET VOLUME 8.9 FL (7.4-10.4); MONOCYTES # (AUTO) 0.7 X10'3 (0-0.9); MONOCYTES % (AUTO) 8.2 % (2-12); NEUTROPHILS # (AUTO) 6.3 X10'3 (1.8-7.7); NEUTROPHILS % (AUTO) 70.9 % (42-75); PLATELET COUNT 239 X10'3 (140-440); RED CELL DISTRIBUTION WIDTH 14.1 % (11.5-14.5); WHITE BLOOD COUNT 8.8 X10'3 (4.5-11.0)
[2021-10-24 05:16] LABS: ALANINE AMINOTRANSFERASE 25 U/L (12-78); ALBUMIN 1.6 G/DL (3.4-5.0); ALBUMIN/GLOBULIN RATIO 0.3 (1.1-1.5); ALKALINE PHOSPHATASE 93 IU/L (46-116); ANION GAP 13 (8-16); ASPARTATE AMINO TRANSFERASE 27 U/L (10-37); BILIRUBIN,TOTAL 0.3 MG/DL (0.1-1.0); BLOOD UREA NITROGEN 43 MG/DL (7-18); BUN/CREATININE RATIO 35.8 (6.6-38.0); CALCIUM 9.9 MG/DL (8.5-10.1); CHLORIDE 122 MMOL/L (99-107); GLUCOSE 143 MG/DL (70-104); MAGNESIUM 1.9 MG/DL (1.5-2.4); PHOSPHORUS 2.8 MG/DL (2.3-4.5); POTASSIUM 3.8 MMOL/L (3.5-5.1); SODIUM 152 MMOL/L (135-145); TOTAL CARBON DIOXIDE 16.6 MMOL/L (24-32); TOTAL PROTEIN 6.9 G/DL (6.4-8.2); VANCOMYCIN,RANDOM 14.6 UG/ML; eGFR 45 ML/MIN
--- NOTE | 2021-10-24 06:00 | NUR ---
Patient in room CICU 2011. I have received report from Brook FRY and had the opportunity to ask questions and assume patient care.
[2021-10-24] MEDS: K and/or MAG REPLACEMENT MC SCH ×2 (07:44→20:00)
[2021-10-24] MEDS: MULTIVIT-MIN/FERROUS GLUCONATE 9 MG/15 ML LIQUID NG SCH (08:04)
[2021-10-24] MEDS: amiodarone 200mg tablet NG SCH ×2 (08:05→20:32)
[2021-10-24] MEDS: ascorbic acid 500mg tablet NG SCH ×2 (08:05→17:21)
[2021-10-24] MEDS: atorvastatin 20mg tablet NG SCH (08:05)
[2021-10-24] MEDS: ferrous sulfate 300mg/5ml UD oral liquid NG SCH ×2 (08:05→20:32)
[2021-10-24] MEDS: aspirin 81mg tab.chew NG SCH (08:05)
[2021-10-24] MEDS: lansoprazole 15mg solutab NG SCH (08:05)
[2021-10-24] MEDS: folic acid 1mg tablet NG SCH (08:05)
[2021-10-24] MEDS: nicotine 14mg patch - 24hr TD SCH (08:06)
[2021-10-24] MEDS: thiamine 100mg tablet NG SCH (08:06)
[2021-10-24] MEDS: duloxetine 30mg CAPSULE.DR PO SCH (08:20)
[2021-10-24] MEDS ORDERED: vancomycin/NS 1 GM ADD-VANTAGE 250 ML IV ONE (10:00)
[2021-10-24] MEDS ORDERED: etomidate 2mg/ml inj. ONE (16:44)
--- NOTE | 2021-10-24 18:24 | NUR ---
Problems reprioritized. Patient report given, questions answered & plan of care reviewed with Marija FRY.
--- NOTE | 2021-10-24 18:30 | NUR ---
Patient in room CICU 2011. I have received report from Bouchra FRY and had the opportunity to ask questions and assume patient care.
[2021-10-25] VITALS (32 sets, daily range): BP systolic 100–165; BP diastolic 48–114
[2021-10-25] MEDS: metoprolol tartrate 25mg tablet NG SCH ×4 (02:14→20:14)
[2021-10-25 03:00] LABS: BASOPHILS # (AUTO) 0.1 X10'3 (0-0.2); BASOPHILS % (AUTO) 0.8 % (0-1); EOSINOPHILS # (AUTO) 0.4 X10'3 (0-0.9); EOSINOPHILS % (AUTO) 5.3 % (0-6); HEMATOCRIT 26.3 % (35.0-45.0); HEMOGLOBIN 8.7 g/dl (12.0-16.0); LYMPHOCYTES # (AUTO) 1.6 X10'3 (1.1-4.8); LYMPHOCYTES % (AUTO) 21.6 % (21-51); MEAN CORPUSCULAR HEMOGLOBIN 31.3 PG (27.0-31.0); MEAN CORPUSCULAR HGB CONC 33.2 g/dL (33.0-36.5); MEAN CORPUSCULAR VOLUME 94.4 FL (78-98); MEAN PLATELET VOLUME 9.1 FL (7.4-10.4); MONOCYTES # (AUTO) 0.5 X10'3 (0-0.9); MONOCYTES % (AUTO) 7.3 % (2-12); NEUTROPHILS # (AUTO) 4.8 X10'3 (1.8-7.7); PLATELET COUNT 260 X10'3 (140-440); RED BLOOD COUNT 2.79 X10'6 (4.20-5.60); RED CELL DISTRIBUTION WIDTH 13.4 % (11.5-14.5); WHITE BLOOD COUNT 7.4 X10'3 (4.5-11.0)
[2021-10-25] MEDS: VANCOMYCIN LEVEL IV SCH (03:00)
[2021-10-25 03:15] LABS: ALANINE AMINOTRANSFERASE 32 U/L (12-78); ALBUMIN 1.8 G/DL (3.4-5.0); ALBUMIN/GLOBULIN RATIO 0.3 (1.1-1.5); ALKALINE PHOSPHATASE 84 IU/L (46-116); ANION GAP 10 (8-16); ASPARTATE AMINO TRANSFERASE 24 U/L (10-37); BILIRUBIN,TOTAL 0.4 MG/DL (0.1-1.0); BLOOD UREA NITROGEN 37 MG/DL (7-18); BUN/CREATININE RATIO 32.7 (6.6-38.0); CALCIUM 9.6 MG/DL (8.5-10.1); CHLORIDE 121 MMOL/L (99-107); CREATININE 1.13 MG/DL (0.40-0.90); GLUCOSE 109 MG/DL (70-104); MAGNESIUM 1.5 MG/DL (1.5-2.4); PHOSPHORUS 4.2 MG/DL (2.3-4.5); POTASSIUM 3.6 MMOL/L (3.5-5.1); SODIUM 149 MMOL/L (135-145); TOTAL CARBON DIOXIDE 18.2 MMOL/L (24-32); TOTAL PROTEIN 7.1 G/DL (6.4-8.2); VANCOMYCIN,RANDOM 8.2 UG/ML; eGFR 48 ML/MIN
[2021-10-25] MEDS: ipratropium/albuterol 3ml nebule NEB SCH ×6 (03:15→23:37)
[2021-10-25] MEDS: heparin, porcine 5000 units/ml vial SQ SCH ×3 (04:21→20:14)
[2021-10-25] MEDS: piperacillin/tazo 3.375gm/50ml 50 ML IV SCH ×3 (04:23→20:12)
--- NOTE | 2021-10-25 06:41 | NUR ---
Problems reprioritized. Patient report given, questions answered & plan of care reviewed with Peg FRY.
[2021-10-25] MEDS: K and/or MAG REPLACEMENT MC SCH ×2 (07:11→20:00)
[2021-10-25] MEDS: nicotine 14mg patch - 24hr TD SCH (07:32)
[2021-10-25] MEDS ORDERED: furosemide 40mg/4ml inj IV ONE (07:35)
[2021-10-25] MEDS: MULTIVIT-MIN/FERROUS GLUCONATE 9 MG/15 ML LIQUID NG SCH (07:38)
[2021-10-25] MEDS: amiodarone 200mg tablet NG SCH ×2 (07:38→20:14)
[2021-10-25] MEDS: ferrous sulfate 300mg/5ml UD oral liquid NG SCH ×2 (07:38→20:13)
[2021-10-25] MEDS: lansoprazole 15mg solutab NG SCH (07:38)
[2021-10-25] MEDS: atorvastatin 20mg tablet NG SCH (07:39)
[2021-10-25] MEDS: thiamine 100mg tablet NG SCH (07:39)
[2021-10-25] MEDS: aspirin 81mg tab.chew NG SCH (07:39)
[2021-10-25] MEDS: folic acid 1mg tablet NG SCH (07:39)
[2021-10-25] MEDS: ascorbic acid 500mg tablet NG SCH ×2 (07:39→18:10)
[2021-10-25 07:44] LABS: ABG BASE EXCESS -7.8 mmol/L (-2.0-2.0); ABG HCO3 14.6 mmol/L (22.0-26.0); ABG OXYGEN SATURATION 90.9 % (94-97); ABG PO2 (T) 66.3 mmHg (75.0-100.0); ALLEN'S TEST POSITIVE; FCOHb 0.1 % (0.0-3.9); FMetHb 0.1 % (0.0-1.5); FO2Hb 90.7 % (94-97); PATIENT TEMPERATURE 37.9; TOTAL HEMOGLOBIN 11.5 G/dl (12.0-16.0)
[2021-10-25] MEDS ORDERED: magnesium 2GM in 50ml NS 50 ML IV ONE (07:45)
[2021-10-25] MEDS ORDERED: propofol 1000mg/100ml bottle 100 ML IV ONE (07:48)
[2021-10-25] MEDS: nystatin 500,000 unit/5ML UD oral suspension PO SCH ×3 (08:00→20:13)
[2021-10-25] MEDS: duloxetine 30mg CAPSULE.DR PO SCH (08:00)
[2021-10-25] MEDS: propofol 1000mg/100ml bottle 100 ML IV SCH ×3 (08:20→22:06)
[2021-10-25] MEDS: acetaminophen 325mg/10.15ml oral unit dose solution NG PRN (08:53)
[2021-10-25 09:01] LABS: TRIGLYCERIDES 172 MG/DL (20-135)
[2021-10-25] MEDS: potassium Cl 10 mEq/100mL bag IV SCH ×4 (09:13→12:55)
[2021-10-25 09:17] LABS: ABG BASE EXCESS -10.4 mmol/L (-2.0-2.0); ABG HCO3 13.6 mmol/L (22.0-26.0); ABG OXYGEN SATURATION 99.1 % (94-97); ABG PCO2 (T) 25.6 mmHg (32.0-45.0); ABG PO2 (T) 308.8 mmHg (75.0-100.0); ALLEN'S TEST POSITIVE; FCOHb 0.3 % (0.0-3.9); FMetHb 0.2 % (0.0-1.5); FO2Hb 98.6 % (94-97); PATIENT TEMPERATURE 37.8; PEEP 5 cm H2O; RESPIRATORY RATE 16 b/min; TIDAL VOLUME 500 mL; TOTAL HEMOGLOBIN 9.7 G/dl (12.0-16.0)
--- NOTE | 2021-10-25 09:55 | NUR ---
Upon assessment of patient at 0700 it was noted that patient had a respiratory rate in the 30s-40s. Patient was on room air with a oxygen saturation of 96%. However, patient appeared very short of breath and was having accessory muscle use to compensate for the SOB. Patient stated she was very tired. Dr. Motta rounded at 0730 and also stated concerned for the patient. ABG was ordered, one time of 40 mEq potassium, one time does of 40mg of Lasix, and one time dose of 2 gm of magnesium. Upon further assessment Dr. Motta decided to intubate with emergent bronchoscopy to follow. When glidescope was inserted MD found a large coagulated bit of sputum and blood. Patient was intubated at 0803 after 20 mg of Etomidate and 50 of Roxanol was given. Patient tolerated well and was then placed on Propofol per MD order. Patient was then successfully bronched with a good amount of sputum suctioned out.
[2021-10-25] MEDS ORDERED: albumin (Human) 5% 250ml 250 ML IV ONE ×2 (10:25)
[2021-10-25] MEDS: FENTANYL-0.9 % NACL/PF 100 ML IV PRN (10:36)
[2021-10-25] MEDS: vancomycin/NS 1 GM ADD-VANTAGE 250 ML IV SCH (10:49)
--- NOTE | 2021-10-25 11:00 | NUR ---
Rounds note: Check PT/INR, PTT, Give 500 ml of 5% Albumin, restart tube feed, check LFTs.
--- NOTE | 2021-10-25 11:24 | NUR ---
F/u 10/25: Pt re-intubated this AM NG remains in place w/ TF to restart today per online marketing specialist. Noted pt on Propofol at this time though to decrease per online marketing specialist at rounds; updated EN recs below given intubation needs. Rectal tube placed last night w/ two BM's yesterday per EMR; latest stool volume output pending at this time. Will monitor for EN tolerance and adjustment needs as medically indicated. Recommendations: 1) Continuous TF using Vital HP at 75ml/hr goal to provide 1800ml volume/day, 1800kcals, 157g protein, 1505ml free water. Initiate at 75ml/hr goal since tolerating prior 65ml/hr rate. 2) Additional water flush 200 Q4H; monitor serum Na 3) Prealbumin q Saturday/; Daily scaled weights 4) BSS with ST prior to PO diet advancement following extubation, previously on pureed diet with NTL per ST recs 10/24 5) Continue routine Thiamine, Folic acid, and MVI for EtOH hx 6) New DM this admit per physician; A1C 6.5% w/ no prior hx or DM home meds per EMR. Would require DM dx by physician prior to RD visit for education Addendum: 10/25/21 at [address] Amended: Links added.
[2021-10-25 11:28] LABS: ALANINE AMINOTRANSFERASE 29 U/L (12-78); ALBUMIN 1.6 G/DL (3.4-5.0); ALBUMIN/GLOBULIN RATIO 0.3 (1.1-1.5); ALKALINE PHOSPHATASE 74 IU/L (46-116); ASPARTATE AMINO TRANSFERASE 23 U/L (10-37); BILIRUBIN,TOTAL 0.3 MG/DL (0.1-1.0); TOTAL PROTEIN 6.6 G/DL (6.4-8.2)
[2021-10-25 11:30] LABS: APTT 25 SECONDS (22-32)
[2021-10-25 11:32] LABS: BILIRUBIN,DIRECT 0.1 MG/DL (0-0.3)
--- NOTE | 2021-10-25 12:00 | NUR ---
Per Dr. Motta titrate Fentanyl to 50mcg and Prop to 30 mcg
[2021-10-25] MEDS ORDERED: fluconazole-Diflucan 200mg/NS 100 ML IV ONE (14:00)
[2021-10-25 16:11] LABS: ANION GAP 12 (8-16); BLOOD UREA NITROGEN 39 MG/DL (7-18); BUN/CREATININE RATIO 33.6 (6.6-38.0); CALCIUM 8.8 MG/DL (8.5-10.1); CHLORIDE 122 MMOL/L (99-107); CREATININE 1.16 MG/DL (0.40-0.90); POTASSIUM 3.8 MMOL/L (3.5-5.1); SODIUM 151 MMOL/L (135-145); TOTAL CARBON DIOXIDE 17.5 MMOL/L (24-32); eGFR 47 ML/MIN
[2021-10-25 16:49] LABS: GLUCOSE 137 MG/DL (70-104)
--- NOTE | 2021-10-25 18:20 | NUR ---
Patient in room CICU 2011. I have received report from Dai FRY and had the opportunity to ask questions and assume patient care.
[2021-10-25 18:55] LABS: MAGNESIUM 1.7 MG/DL (1.5-2.4)
[2021-10-25 21:27] LABS: ABG BASE EXCESS -8.6 mmol/L (-2.0-2.0); ABG HCO3 14.8 mmol/L (22.0-26.0); ABG OXYGEN SATURATION 96.1 % (94-97); ABG PCO2 (T) 24.3 mmHg (32.0-45.0); ALLEN'S TEST Modified; FCOHb 0.3 % (0.0-3.9); FMetHb 0.5 % (0.0-1.5); FO2Hb 95.3 % (94-97); PEEP 5 cm H2O; RESPIRATORY RATE 16 b/min; TIDAL VOLUME 500 mL; TOTAL HEMOGLOBIN 7.5 G/dl (12.0-16.0)
[2021-10-26] VITALS (36 sets, daily range): BP systolic 91–139; BP diastolic 43–75
[2021-10-26] MEDS: metoprolol tartrate 25mg tablet NG SCH (02:00)
[2021-10-26 03:19] LABS: ALANINE AMINOTRANSFERASE 25 U/L (12-78); ALBUMIN 1.8 G/DL (3.4-5.0); ALBUMIN/GLOBULIN RATIO 0.4 (1.1-1.5); ALKALINE PHOSPHATASE 65 IU/L (46-116); ANION GAP 14 (8-16); ASPARTATE AMINO TRANSFERASE 18 U/L (10-37); BILIRUBIN,TOTAL 0.3 MG/DL (0.1-1.0); BLOOD UREA NITROGEN 39 MG/DL (7-18); BUN/CREATININE RATIO 33.6 (6.6-38.0); CALCIUM 9.2 MG/DL (8.5-10.1); CHLORIDE 117 MMOL/L (99-107); CREATININE 1.16 MG/DL (0.40-0.90); GLUCOSE 160 MG/DL (70-104); MAGNESIUM 1.8 MG/DL (1.5-2.4); POTASSIUM 3.6 MMOL/L (3.5-5.1); SODIUM 149 MMOL/L (135-145); TOTAL CARBON DIOXIDE 18.3 MMOL/L (24-32); TOTAL PROTEIN 6.3 G/DL (6.4-8.2); TRIGLYCERIDES 157 MG/DL (20-135); eGFR 47 ML/MIN
[2021-10-26] MEDS: ipratropium/albuterol 3ml nebule NEB SCH ×6 (03:20→23:04)
[2021-10-26 03:40] LABS: BASOPHILS % (AUTO) 0.5 % (0-1); EOSINOPHILS # (AUTO) 0.4 X10'3 (0-0.9); EOSINOPHILS % (AUTO) 7.8 % (0-6); LYMPHOCYTES # (AUTO) 1.1 X10'3 (1.1-4.8); LYMPHOCYTES % (AUTO) 19.6 % (21-51); MEAN CORPUSCULAR HEMOGLOBIN 31.7 PG (27.0-31.0); MEAN CORPUSCULAR HGB CONC 32.8 g/dL (33.0-36.5); MEAN CORPUSCULAR VOLUME 96.6 FL (78-98); MEAN PLATELET VOLUME 9.3 FL (7.4-10.4); MONOCYTES # (AUTO) 0.3 X10'3 (0-0.9); MONOCYTES % (AUTO) 6.5 % (2-12); NEUTROPHILS # (AUTO) 3.5 X10'3 (1.8-7.7); NEUTROPHILS % (AUTO) 65.6 % (42-75); PLATELET COUNT 218 X10'3 (140-440); RED BLOOD COUNT 2.19 X10'6 (4.20-5.60); RED CELL DISTRIBUTION WIDTH 13.5 % (11.5-14.5); WHITE BLOOD COUNT 5.4 X10'3 (4.5-11.0)
[2021-10-26 03:52] LABS: HEMATOCRIT 21.2 % (35.0-45.0)
[2021-10-26 03:52] LABS: ABG BASE EXCESS -8.6 mmol/L (-2.0-2.0); ABG HCO3 15.4 mmol/L (22.0-26.0); ABG OXYGEN SATURATION 94.3 % (94-97); ABG PCO2 (T) 26.5 mmHg (32.0-45.0); ABG PO2 (T) 80.3 mmHg (75.0-100.0); ALLEN'S TEST Modified; FCOHb 0.3 % (0.0-3.9); FMetHb 0.3 % (0.0-1.5); FO2Hb 93.7 % (94-97); PATIENT TEMPERATURE 37.4; PEEP 5 cm H2O; RESPIRATORY RATE 16 b/min; TIDAL VOLUME 500 mL; TOTAL HEMOGLOBIN 7.6 G/dl (12.0-16.0)
[2021-10-26] MEDS: propofol 1000mg/100ml bottle 100 ML IV SCH ×4 (04:07→23:45)
[2021-10-26] MEDS: piperacillin/tazo 3.375gm/50ml 50 ML IV SCH ×3 (05:22→20:40)
[2021-10-26] MEDS: heparin, porcine 5000 units/ml vial SQ SCH ×3 (05:22→20:36)
--- NOTE | 2021-10-26 06:56 | NUR ---
Problems reprioritized. Patient report given, questions answered & plan of care reviewed with Carlee FRY.
[2021-10-26] MEDS: K and/or MAG REPLACEMENT MC SCH ×2 (08:00→20:00)
[2021-10-26] MEDS ORDERED: VANCOMYCIN LEVEL IV ONE (08:30)
[2021-10-26 09:35] LABS: BASOPHILS % (AUTO) 0.5 % (0-1); EOSINOPHILS # (AUTO) 0.4 X10'3 (0-0.9); EOSINOPHILS % (AUTO) 8.9 % (0-6); HEMATOCRIT 23.2 % (35.0-45.0); HEMOGLOBIN 7.6 g/dl (12.0-16.0); LYMPHOCYTES % (AUTO) 19.6 % (21-51); MEAN CORPUSCULAR HEMOGLOBIN 31.3 PG (27.0-31.0); MEAN CORPUSCULAR HGB CONC 32.8 g/dL (33.0-36.5); MEAN CORPUSCULAR VOLUME 95.5 FL (78-98); MEAN PLATELET VOLUME 8.8 FL (7.4-10.4); MONOCYTES # (AUTO) 0.4 X10'3 (0-0.9); MONOCYTES % (AUTO) 7.6 % (2-12); NEUTROPHILS # (AUTO) 3.1 X10'3 (1.8-7.7); NEUTROPHILS % (AUTO) 63.4 % (42-75); PLATELET COUNT 219 X10'3 (140-440); RED BLOOD COUNT 2.43 X10'6 (4.20-5.60); RED CELL DISTRIBUTION WIDTH 13.3 % (11.5-14.5); WHITE BLOOD COUNT 4.9 X10'3 (4.5-11.0)
[2021-10-26 09:55] LABS: C-REACTIVE PROTEIN 6.03 MG/DL (0.0-0.5); VANCOMYCIN,TROUGH 13.4 UG/ML (6.0-14.0)
[2021-10-26 10:21] LABS: PLATELET ESTIMATE NORMAL; TOTAL CELLS COUNTED 100
[2021-10-26] MEDS: fluconazole-Diflucan 200mg/NS 100 ML IV SCH (10:40)
[2021-10-26] MEDS: vancomycin/NS 1 GM ADD-VANTAGE 250 ML IV SCH (10:40)
[2021-10-26] MEDS: ferrous sulfate 300mg/5ml UD oral liquid NG SCH ×2 (10:42→20:29)
[2021-10-26] MEDS: aspirin 81mg tab.chew NG SCH (10:43)
[2021-10-26] MEDS: nystatin 500,000 unit/5ML UD oral suspension PO SCH ×3 (10:43→20:28)
[2021-10-26] MEDS: folic acid 1mg tablet NG SCH (10:43)
[2021-10-26] MEDS: duloxetine 30mg CAPSULE.DR PO SCH (10:43)
[2021-10-26] MEDS: ascorbic acid 500mg tablet NG SCH ×2 (10:43→17:40)
[2021-10-26] MEDS: atorvastatin 20mg tablet NG SCH (10:43)
[2021-10-26] MEDS: MULTIVIT-MIN/FERROUS GLUCONATE 9 MG/15 ML LIQUID NG SCH (10:43)
[2021-10-26] MEDS: thiamine 100mg tablet NG SCH (10:44)
[2021-10-26] MEDS: amiodarone 200mg tablet NG SCH ×2 (10:44→20:28)
[2021-10-26] MEDS: lansoprazole 15mg solutab NG SCH (10:44)
[2021-10-26] MEDS: nicotine 14mg patch - 24hr TD SCH (10:45)
[2021-10-26] MEDS: sodium chloride 3% for inhalation 4ml nebule IH SCH ×2 (11:00→15:00)
[2021-10-26] MEDS: FENTANYL-0.9 % NACL/PF 100 ML IV PRN ×2 (14:28→23:44)
--- NOTE | 2021-10-26 19:00 | NUR ---
Patient in room CICU 2011. I have received report from Carlee FRY and had the opportunity to ask questions and assume patient care.
[2021-10-27] VITALS (37 sets, daily range): BP systolic 95–152; BP diastolic 40–78
[2021-10-27] MEDS: ipratropium/albuterol 3ml nebule NEB SCH ×6 (02:21→23:26)
[2021-10-27] MEDS: sodium chloride 3% for inhalation 4ml nebule IH SCH ×6 (02:32→23:26)
[2021-10-27 02:43] LABS: ABG BASE EXCESS -9.4 mmol/L (-2.0-2.0); ABG OXYGEN SATURATION 95.9 % (94-97); ABG PCO2 (T) 27.6 mmHg (32.0-45.0); ABG PO2 (T) 94.9 mmHg (75.0-100.0); ALLEN'S TEST POSITIVE; FCOHb 0.3 % (0.0-3.9); FMetHb 0.5 % (0.0-1.5); FO2Hb 95.1 % (94-97); PATIENT TEMPERATURE 37.7; PEEP 5 cm H2O; RESPIRATORY RATE 16 b/min; TIDAL VOLUME 500 mL; TOTAL HEMOGLOBIN 6.3 G/dl (12.0-16.0)
[2021-10-27 03:31] LABS: BASOPHILS % (AUTO) 0.7 % (0-1); EOSINOPHILS # (AUTO) 0.5 X10'3 (0-0.9); EOSINOPHILS % (AUTO) 8.6 % (0-6); LYMPHOCYTES % (AUTO) 18.1 % (21-51); MEAN CORPUSCULAR HEMOGLOBIN 31.4 PG (27.0-31.0); MEAN CORPUSCULAR HGB CONC 32.6 g/dL (33.0-36.5); MEAN CORPUSCULAR VOLUME 96.2 FL (78-98); MEAN PLATELET VOLUME 9.2 FL (7.4-10.4); MONOCYTES # (AUTO) 0.4 X10'3 (0-0.9); MONOCYTES % (AUTO) 7.6 % (2-12); NEUTROPHILS # (AUTO) 3.4 X10'3 (1.8-7.7); PLATELET COUNT 240 X10'3 (140-440); RED BLOOD COUNT 2.12 X10'6 (4.20-5.60); RED CELL DISTRIBUTION WIDTH 13.8 % (11.5-14.5); WHITE BLOOD COUNT 5.3 X10'3 (4.5-11.0)
[2021-10-27 03:34] LABS: ALANINE AMINOTRANSFERASE 21 U/L (12-78); ALBUMIN 1.7 G/DL (3.4-5.0); ALBUMIN/GLOBULIN RATIO 0.4 (1.1-1.5); ALKALINE PHOSPHATASE 68 IU/L (46-116); ANION GAP 9 (8-16); ASPARTATE AMINO TRANSFERASE 14 U/L (10-37); BILIRUBIN,TOTAL 0.2 MG/DL (0.1-1.0); BLOOD UREA NITROGEN 36 MG/DL (7-18); BUN/CREATININE RATIO 32.7 (6.6-38.0); CALCIUM 8.7 MG/DL (8.5-10.1); CHLORIDE 121 MMOL/L (99-107); MAGNESIUM 1.5 MG/DL (1.5-2.4); PHOSPHORUS 3.8 MG/DL (2.3-4.5); POTASSIUM 3.6 MMOL/L (3.5-5.1); SODIUM 149 MMOL/L (135-145); TOTAL PROTEIN 6.1 G/DL (6.4-8.2); eGFR 50 ML/MIN
[2021-10-27 03:39] LABS: HEMOGLOBIN 6.7 g/dl (12.0-16.0)
[2021-10-27 03:40] LABS: HEMATOCRIT 20.4 % (35.0-45.0)
[2021-10-27 03:41] LABS: GLUCOSE 137 MG/DL (70-104)
[2021-10-27 04:39] LABS: PLATELET ESTIMATE NORMAL; TOTAL CELLS COUNTED 100
[2021-10-27 04:40] LABS: POLYCHROMASIA FEW
[2021-10-27 04:41] LABS: ANISOCYTOSIS 1+; LARGE PLATELETS FEW
[2021-10-27] MEDS: heparin, porcine 5000 units/ml vial SQ SCH ×3 (05:12→20:36)
[2021-10-27] MEDS: piperacillin/tazo 3.375gm/50ml 50 ML IV SCH ×3 (05:16→20:38)
--- NOTE | 2021-10-27 07:00 | NUR ---
patient having copious amounts of watery stool, rectal tube inserted 200ml immediately out, domenico rectal care done and repositioned.
[2021-10-27] MEDS: MULTIVIT-MIN/FERROUS GLUCONATE 9 MG/15 ML LIQUID NG SCH (07:18)
[2021-10-27] MEDS: folic acid 1mg tablet NG SCH (07:18)
[2021-10-27] MEDS: ferrous sulfate 300mg/5ml UD oral liquid NG SCH ×2 (07:18→20:36)
[2021-10-27] MEDS: atorvastatin 20mg tablet NG SCH (07:18)
[2021-10-27] MEDS: duloxetine 30mg CAPSULE.DR PO SCH (07:18)
[2021-10-27] MEDS: aspirin 81mg tab.chew NG SCH (07:18)
[2021-10-27] MEDS: ascorbic acid 500mg tablet NG SCH ×2 (07:18→18:22)
[2021-10-27] MEDS: fluconazole-Diflucan 200mg/NS 100 ML IV SCH (07:18)
[2021-10-27] MEDS: thiamine 100mg tablet NG SCH (07:18)
[2021-10-27] MEDS: amiodarone 200mg tablet NG SCH ×2 (07:19→20:35)
[2021-10-27] MEDS: lansoprazole 15mg solutab NG SCH (07:19)
[2021-10-27] MEDS: nicotine 14mg patch - 24hr TD SCH (07:19)
[2021-10-27] MEDS: propofol 1000mg/100ml bottle 100 ML IV SCH ×2 (07:24→20:40)
[2021-10-27] MEDS: K and/or MAG REPLACEMENT MC SCH ×2 (08:00→20:00)
[2021-10-27] MEDS: nystatin 500,000 unit/5ML UD oral suspension PO SCH ×3 (08:52→20:36)
--- NOTE | 2021-10-27 11:01 | NUR ---
after 6 attempts to reach brother emma for blood transfusion consent, signed consent as emergent for hgb 6.8. 1 unit started.
--- NOTE | 2021-10-27 11:34 | NUR ---
F/u 10/26: Pt remains intubated tolerating TF at goal. Propofol visualized at 14.25ml/hr providing additional 376 kcals/day; digital communications manager at rounds agreeable to RD adjusting EN given Propofol. Pt s/p rectal tube placement w/ high output per RN pending volume documentation. Updated EN recs below; will monitor for tolerance and further adjustment needs. Recommendations: 1) Given Propofol at 14.25ml/hr providing additional 376 kcals/day; continuous TF using Vital HP at 70ml/hr goal. To provide 1680 ml volume/day, 1680 kcals, 1404ml water, and 147g protein. 2) IF pt off Propofol; advance TF to 75ml/hr goal using Vital HP; would provide 1800ml volume/day, 1800kcals, 157g protein, 1505ml free water. 3) Monitor for Propofol rate and further EN adjustment needs 4) Additional water flush 200 Q4H; monitor serum Na 5) Prealbumin q Saturday/; Daily scaled weights 6) BSS with ST prior to PO diet advancement following extubation, previously on pureed diet with NTL per ST recs 10/24 7) Continue routine Thiamine, Folic acid, and MVI for EtOH hx 8) New DM this admit per physician; A1C 6.5% w/ no prior hx or DM home meds per EMR. Would require DM dx by physician prior to RD visit for education Addendum: 10/27/21 at [address] Amended: Links added.
[2021-10-27] MEDS: VANCOmycin 1250MG/NS 250ml Bag 250 ML IV SCH (12:43)
[2021-10-27] MEDS: pantoprazole 40MG/NS 100ML BAG 100 ML IV SCH ×2 (12:48→20:38)
[2021-10-27 17:23] LABS: BASOPHILS % (AUTO) 0.4 % (0-1); EOSINOPHILS # (AUTO) 0.5 X10'3 (0-0.9); HEMOGLOBIN 8.1 g/dl (12.0-16.0); LYMPHOCYTES # (AUTO) 0.9 X10'3 (1.1-4.8); LYMPHOCYTES % (AUTO) 14.2 % (21-51); MEAN CORPUSCULAR HGB CONC 33.7 g/dL (33.0-36.5); MEAN CORPUSCULAR VOLUME 94.9 FL (78-98); MEAN PLATELET VOLUME 8.7 FL (7.4-10.4); MONOCYTES # (AUTO) 0.5 X10'3 (0-0.9); MONOCYTES % (AUTO) 7.3 % (2-12); NEUTROPHILS # (AUTO) 4.6 X10'3 (1.8-7.7); NEUTROPHILS % (AUTO) 71.1 % (42-75); PLATELET COUNT 255 X10'3 (140-440); RED BLOOD COUNT 2.53 X10'6 (4.20-5.60); RED CELL DISTRIBUTION WIDTH 14.2 % (11.5-14.5); WHITE BLOOD COUNT 6.4 X10'3 (4.5-11.0)
[2021-10-27 17:43] LABS: ANISOCYTOSIS 1+; PLATELET ESTIMATE NORMAL; TOTAL CELLS COUNTED 100
[2021-10-27 17:44] LABS: LARGE PLATELETS FEW; POLYCHROMASIA FEW
--- NOTE | 2021-10-27 18:15 | NUR ---
Patient in room CICU 2011. I have received report from Lena FRY and had the opportunity to ask questions and assume patient care.
[2021-10-27] MEDS: FENTANYL-0.9 % NACL/PF 100 ML IV PRN (20:39)
[2021-10-28] VITALS (33 sets, daily range): BP systolic 102–137; BP diastolic 48–73
[2021-10-28 02:27] LABS: BASOPHILS % (AUTO) 0.4 % (0-1); EOSINOPHILS # (AUTO) 0.5 X10'3 (0-0.9); EOSINOPHILS % (AUTO) 7.5 % (0-6); HEMATOCRIT 25.1 % (35.0-45.0); HEMOGLOBIN 8.2 g/dl (12.0-16.0); MEAN CORPUSCULAR HEMOGLOBIN 30.6 PG (27.0-31.0); MEAN CORPUSCULAR HGB CONC 32.5 g/dL (33.0-36.5); MEAN CORPUSCULAR VOLUME 94.2 FL (78-98); MEAN PLATELET VOLUME 8.7 FL (7.4-10.4); MONOCYTES # (AUTO) 0.5 X10'3 (0-0.9); MONOCYTES % (AUTO) 7.9 % (2-12); NEUTROPHILS # (AUTO) 4.5 X10'3 (1.8-7.7); NEUTROPHILS % (AUTO) 69.2 % (42-75); PLATELET COUNT 264 X10'3 (140-440); RED BLOOD COUNT 2.67 X10'6 (4.20-5.60); RED CELL DISTRIBUTION WIDTH 14.4 % (11.5-14.5); WHITE BLOOD COUNT 6.5 X10'3 (4.5-11.0)
[2021-10-28 02:44] LABS: ALANINE AMINOTRANSFERASE 24 U/L (12-78); ALBUMIN 1.7 G/DL (3.4-5.0); ALBUMIN/GLOBULIN RATIO 0.4 (1.1-1.5); ALKALINE PHOSPHATASE 79 IU/L (46-116); ANION GAP 9 (8-16); ASPARTATE AMINO TRANSFERASE 21 U/L (10-37); BILIRUBIN,TOTAL 0.3 MG/DL (0.1-1.0); BLOOD UREA NITROGEN 28 MG/DL (7-18); BUN/CREATININE RATIO 29.5 (6.6-38.0); CALCIUM 9.1 MG/DL (8.5-10.1); CHLORIDE 117 MMOL/L (99-107); CREATININE 0.95 MG/DL (0.40-0.90); MAGNESIUM 1.2 MG/DL (1.5-2.4); PHOSPHORUS 3.7 MG/DL (2.3-4.5); POTASSIUM 3.8 MMOL/L (3.5-5.1); SODIUM 145 MMOL/L (135-145); TOTAL CARBON DIOXIDE 18.7 MMOL/L (24-32); TOTAL PROTEIN 6.2 G/DL (6.4-8.2); TRIGLYCERIDES 188 MG/DL (20-135); eGFR 59 ML/MIN
[2021-10-28 02:47] LABS: GLUCOSE 130 MG/DL (70-104)
[2021-10-28] MEDS: ipratropium/albuterol 3ml nebule NEB SCH ×6 (03:01→23:13)
[2021-10-28] MEDS: sodium chloride 3% for inhalation 4ml nebule IH SCH ×6 (03:02→23:21)
[2021-10-28] MEDS: magnesium 2GM in 50ml NS 50 ML IV PRN (03:12)
[2021-10-28 03:16] LABS: ABG HCO3 16.6 mmol/L (22.0-26.0); ABG OXYGEN SATURATION 96.4 % (94-97); ABG PCO2 (T) 31.1 mmHg (32.0-45.0); ABG PO2 (T) 93.6 mmHg (75.0-100.0); ALLEN'S TEST POSITIVE; FCOHb 0.3 % (0.0-3.9); FMetHb 0.3 % (0.0-1.5); FO2Hb 95.8 % (94-97); PATIENT TEMPERATURE 37.5; PEEP 5 cm H2O; TOTAL HEMOGLOBIN 8.4 G/dl (12.0-16.0)
[2021-10-28] MEDS: propofol 1000mg/100ml bottle 100 ML IV SCH ×3 (03:35→22:25)
[2021-10-28] MEDS: FENTANYL-0.9 % NACL/PF 100 ML IV PRN ×3 (03:36→21:57)
[2021-10-28 03:57] LABS: ANISOCYTOSIS 1+; LARGE PLATELETS FEW; PLATELET ESTIMATE NORMAL; POLYCHROMASIA FEW; ROULEAUX 1+; TOTAL CELLS COUNTED 100
[2021-10-28] MEDS: piperacillin/tazo 3.375gm/50ml 50 ML IV SCH ×3 (04:37→20:06)
[2021-10-28] MEDS: heparin, porcine 5000 units/ml vial SQ SCH ×3 (04:38→20:04)
--- NOTE | 2021-10-28 06:26 | NUR ---
Problems reprioritized. Patient report given to Dean FRY, questions answered & plan of care reviewed with .
[2021-10-28] MEDS ORDERED: furosemide 20 MG/2 ML vial IV ONE (07:25)
[2021-10-28] MEDS: VANCOmycin 1250MG/NS 250ml Bag 250 ML IV SCH (08:00)
[2021-10-28] MEDS: duloxetine 30mg CAPSULE.DR NG SCH (08:00)
[2021-10-28] MEDS: K and/or MAG REPLACEMENT MC SCH ×2 (08:00→20:00)
[2021-10-28] MEDS: MULTIVIT-MIN/FERROUS GLUCONATE 9 MG/15 ML LIQUID NG SCH (08:01)
[2021-10-28] MEDS: ascorbic acid 500mg tablet NG SCH ×2 (08:01→18:30)
[2021-10-28] MEDS: nystatin 500,000 unit/5ML UD oral suspension PO SCH ×3 (08:01→20:04)
[2021-10-28] MEDS: ferrous sulfate 300mg/5ml UD oral liquid NG SCH ×2 (08:01→20:05)
[2021-10-28] MEDS: thiamine 100mg tablet NG SCH (08:01)
[2021-10-28] MEDS: aspirin 81mg tab.chew NG SCH (08:01)
[2021-10-28] MEDS: folic acid 1mg tablet NG SCH (08:01)
[2021-10-28] MEDS: amiodarone 200mg tablet NG SCH ×2 (08:01→20:04)
[2021-10-28] MEDS: pantoprazole 40MG/NS 100ML BAG 100 ML IV SCH ×2 (08:02→20:04)
[2021-10-28] MEDS: fluconazole-Diflucan 200mg/NS 100 ML IV SCH (08:02)
[2021-10-28] MEDS: nicotine 14mg patch - 24hr TD SCH ×2 (08:02→08:24)
[2021-10-28] MEDS: atorvastatin 20mg tablet NG SCH (08:03)
--- NOTE | 2021-10-28 18:30 | NUR ---
Patient in room CICU 2011. I have received report from Dean FRY and had the opportunity to ask questions and assume patient care.
[2021-10-29] VITALS (35 sets, daily range): BP systolic 114–151; BP diastolic 39–78
[2021-10-29] MEDS: ipratropium/albuterol 3ml nebule NEB SCH ×6 (02:37→23:18)
[2021-10-29] MEDS: sodium chloride 3% for inhalation 4ml nebule IH SCH ×6 (02:37→23:18)
[2021-10-29 02:47] LABS: BASOPHILS % (AUTO) 0.6 % (0-1); EOSINOPHILS # (AUTO) 0.5 X10'3 (0-0.9); EOSINOPHILS % (AUTO) 6.5 % (0-6); HEMATOCRIT 23.7 % (35.0-45.0); LYMPHOCYTES % (AUTO) 14.7 % (21-51); MEAN CORPUSCULAR HEMOGLOBIN 31.4 PG (27.0-31.0); MEAN CORPUSCULAR HGB CONC 33.7 g/dL (33.0-36.5); MEAN CORPUSCULAR VOLUME 93.2 FL (78-98); MONOCYTES # (AUTO) 0.5 X10'3 (0-0.9); MONOCYTES % (AUTO) 6.9 % (2-12); NEUTROPHILS % (AUTO) 71.3 % (42-75); PLATELET COUNT 311 X10'3 (140-440); RED BLOOD COUNT 2.55 X10'6 (4.20-5.60); RED CELL DISTRIBUTION WIDTH 13.8 % (11.5-14.5)
[2021-10-29 02:55] LABS: ABG BASE EXCESS -5.6 mmol/L (-2.0-2.0); ABG HCO3 19.1 mmol/L (22.0-26.0); ABG OXYGEN SATURATION 92.3 % (94-97); ABG PCO2 (T) 34.5 mmHg (32.0-45.0); ABG PO2 (T) 67.9 mmHg (75.0-100.0); ALLEN'S TEST POSITIVE; FCOHb 0.3 % (0.0-3.9); FMetHb 0.4 % (0.0-1.5); FO2Hb 91.7 % (94-97); PATIENT TEMPERATURE 37.4; PEEP 5 cm H2O; TOTAL HEMOGLOBIN 8.7 G/dl (12.0-16.0)
[2021-10-29 03:06] LABS: ALANINE AMINOTRANSFERASE 30 U/L (12-78); ALBUMIN 1.6 G/DL (3.4-5.0); ALBUMIN/GLOBULIN RATIO 0.3 (1.1-1.5); ALKALINE PHOSPHATASE 133 IU/L (46-116); ANION GAP 10 (8-16); ASPARTATE AMINO TRANSFERASE 22 U/L (10-37); BILIRUBIN,TOTAL 0.3 MG/DL (0.1-1.0); BLOOD UREA NITROGEN 25 MG/DL (7-18); BUN/CREATININE RATIO 28.1 (6.6-38.0); CALCIUM 9.4 MG/DL (8.5-10.1); CHLORIDE 112 MMOL/L (99-107); CREATININE 0.89 MG/DL (0.40-0.90); GLUCOSE 134 MG/DL (70-104); MAGNESIUM 1.3 MG/DL (1.5-2.4); POTASSIUM 3.6 MMOL/L (3.5-5.1); SODIUM 141 MMOL/L (135-145); TOTAL CARBON DIOXIDE 18.6 MMOL/L (24-32); TOTAL PROTEIN 6.4 G/DL (6.4-8.2); TRIGLYCERIDES 183 MG/DL (20-135); eGFR 64 ML/MIN
[2021-10-29] MEDS: piperacillin/tazo 3.375gm/50ml 50 ML IV SCH ×3 (04:34→20:33)
[2021-10-29] MEDS: heparin, porcine 5000 units/ml vial SQ SCH ×3 (04:35→20:33)
[2021-10-29] MEDS: magnesium 2GM in 50ml NS 50 ML IV PRN (04:35)
[2021-10-29] MEDS: propofol 1000mg/100ml bottle 100 ML IV SCH ×2 (04:52→14:52)
[2021-10-29 05:25] LABS: TOTAL CELLS COUNTED 100
[2021-10-29 05:27] LABS: PLATELET ESTIMATE NORMAL
[2021-10-29] MEDS: FENTANYL-0.9 % NACL/PF 100 ML IV PRN ×3 (06:07→21:39)
--- NOTE | 2021-10-29 06:23 | NUR ---
Problems reprioritized. Patient report given to Alia FRY, questions answered & plan of care reviewed with .
[2021-10-29] MEDS: nicotine 14mg patch - 24hr TD SCH (07:24)
[2021-10-29] MEDS: amiodarone 200mg tablet NG SCH ×2 (07:26→20:33)
[2021-10-29] MEDS: ferrous sulfate 300mg/5ml UD oral liquid NG SCH ×2 (07:26→20:33)
[2021-10-29] MEDS: MULTIVIT-MIN/FERROUS GLUCONATE 9 MG/15 ML LIQUID NG SCH (07:26)
[2021-10-29] MEDS: atorvastatin 20mg tablet NG SCH (07:26)
[2021-10-29] MEDS: nystatin 500,000 unit/5ML UD oral suspension PO SCH ×3 (07:26→20:33)
[2021-10-29] MEDS: thiamine 100mg tablet NG SCH (07:26)
[2021-10-29] MEDS: duloxetine 30mg CAPSULE.DR NG SCH (07:26)
[2021-10-29] MEDS: folic acid 1mg tablet NG SCH (07:26)
[2021-10-29] MEDS: pantoprazole 40MG/NS 100ML BAG 100 ML IV SCH ×2 (07:26→20:32)
[2021-10-29] MEDS: fluconazole-Diflucan 200mg/NS 100 ML IV SCH (07:34)
[2021-10-29] MEDS: K and/or MAG REPLACEMENT MC SCH ×2 (07:35→20:00)
[2021-10-29] MEDS: aspirin 81mg tab.chew NG SCH (08:32)
[2021-10-29] MEDS: ascorbic acid 500mg tablet NG SCH ×2 (08:39→16:55)
[2021-10-29] MEDS: VANCOmycin 1250MG/NS 250ml Bag 250 ML IV SCH (09:32)
[2021-10-30] VITALS (30 sets, daily range): BP systolic 124–184; BP diastolic 60–98
[2021-10-30] MEDS: sodium chloride 3% for inhalation 4ml nebule IH SCH ×6 (03:27→23:19)
[2021-10-30] MEDS: ipratropium/albuterol 3ml nebule NEB SCH ×6 (03:27→23:19)
[2021-10-30 03:46] LABS: ABG BASE EXCESS -5.9 mmol/L (-2.0-2.0); ABG OXYGEN SATURATION 95.7 % (94-97); ABG PCO2 (T) 35.3 mmHg (32.0-45.0); ABG PO2 (T) 86.8 mmHg (75.0-100.0); ALLEN'S TEST POSITIVE; FMetHb 0.3 % (0.0-1.5); FO2Hb 94.5 % (94-97); PATIENT TEMPERATURE 37.5; PEEP 5 cm H2O; RESPIRATORY RATE 21 b/min; TOTAL HEMOGLOBIN 8.5 G/dl (12.0-16.0)
[2021-10-30] MEDS: heparin, porcine 5000 units/ml vial SQ SCH ×3 (04:23→20:36)
[2021-10-30] MEDS: piperacillin/tazo 3.375gm/50ml 50 ML IV SCH (04:23)
--- NOTE | 2021-10-30 06:49 | NUR ---
Patient in room CICU 2011. I have received report from Mac RN and had the opportunity to ask questions and assume patient care.
--- NOTE | 2021-10-30 06:50 | NUR ---
entered AM labs per protocol as none were ordered
[2021-10-30 07:18] LABS: BASOPHILS % (AUTO) 0.6 % (0-1); EOSINOPHILS # (AUTO) 0.4 X10'3 (0-0.9); EOSINOPHILS % (AUTO) 4.9 % (0-6); HEMATOCRIT 24.2 % (35.0-45.0); LYMPHOCYTES % (AUTO) 12.9 % (21-51); MEAN CORPUSCULAR HEMOGLOBIN 30.6 PG (27.0-31.0); MEAN CORPUSCULAR HGB CONC 33.1 g/dL (33.0-36.5); MEAN CORPUSCULAR VOLUME 92.4 FL (78-98); MEAN PLATELET VOLUME 8.7 FL (7.4-10.4); MONOCYTES # (AUTO) 0.7 X10'3 (0-0.9); MONOCYTES % (AUTO) 9.2 % (2-12); NEUTROPHILS # (AUTO) 5.5 X10'3 (1.8-7.7); NEUTROPHILS % (AUTO) 72.4 % (42-75); PLATELET COUNT 383 X10'3 (140-440); RED BLOOD COUNT 2.62 X10'6 (4.20-5.60); WHITE BLOOD COUNT 7.6 X10'3 (4.5-11.0)
[2021-10-30] MEDS: pantoprazole 40MG/NS 100ML BAG 100 ML IV SCH (07:21)
[2021-10-30] MEDS: FENTANYL-0.9 % NACL/PF 100 ML IV PRN (07:22)
[2021-10-30] MEDS: fluconazole-Diflucan 200mg/NS 100 ML IV SCH (07:22)
[2021-10-30] MEDS: ascorbic acid 500mg tablet NG SCH ×2 (07:23→17:30)
[2021-10-30] MEDS: duloxetine 30mg CAPSULE.DR NG SCH (07:23)
[2021-10-30] MEDS: MULTIVIT-MIN/FERROUS GLUCONATE 9 MG/15 ML LIQUID NG SCH (07:23)
[2021-10-30] MEDS: amiodarone 200mg tablet NG SCH ×2 (07:23→18:56)
[2021-10-30] MEDS: nystatin 500,000 unit/5ML UD oral suspension PO SCH (07:23)
[2021-10-30] MEDS: aspirin 81mg tab.chew NG SCH (07:23)
[2021-10-30] MEDS: thiamine 100mg tablet NG SCH (07:23)
[2021-10-30] MEDS: folic acid 1mg tablet NG SCH (07:23)
[2021-10-30] MEDS: ferrous sulfate 300mg/5ml UD oral liquid NG SCH ×2 (07:23→18:56)
[2021-10-30] MEDS: nicotine 14mg patch - 24hr TD SCH (07:24)
[2021-10-30 07:44] LABS: ALANINE AMINOTRANSFERASE 44 U/L (12-78); ALBUMIN 1.5 G/DL (3.4-5.0); ALBUMIN/GLOBULIN RATIO 0.3 (1.1-1.5); ALKALINE PHOSPHATASE 233 IU/L (46-116); ANION GAP 10 (8-16); ASPARTATE AMINO TRANSFERASE 24 U/L (10-37); BILIRUBIN,TOTAL 0.2 MG/DL (0.1-1.0); BLOOD UREA NITROGEN 22 MG/DL (7-18); BUN/CREATININE RATIO 26.8 (6.6-38.0); CALCIUM 9.7 MG/DL (8.5-10.1); CHLORIDE 112 MMOL/L (99-107); CREATININE 0.82 MG/DL (0.40-0.90); GLUCOSE 154 MG/DL (70-104); POTASSIUM 3.5 MMOL/L (3.5-5.1); SODIUM 141 MMOL/L (135-145); TOTAL CARBON DIOXIDE 18.8 MMOL/L (24-32); TOTAL PROTEIN 6.2 G/DL (6.4-8.2); VANCOMYCIN,TROUGH 17.4 UG/ML (6.0-14.0); eGFR 70 ML/MIN
[2021-10-30 08:13] LABS: TOTAL CELLS COUNTED 100
[2021-10-30 08:14] LABS: LARGE PLATELETS FEW; PLATELET ESTIMATE NORMAL
[2021-10-30] MEDS ORDERED: VANCOMYCIN LEVEL IV ONE (08:30)
[2021-10-30] MEDS: atorvastatin 20mg tablet NG SCH (08:46)
[2021-10-30] MEDS: K and/or MAG REPLACEMENT MC SCH ×2 (08:49→18:55)
[2021-10-30] MEDS: VANCOmycin 1250MG/NS 250ml Bag 250 ML IV SCH (09:00)
[2021-10-30] MEDS: LORazepam 2 mg/ml vial IV PRN (11:29)
--- NOTE | 2021-10-30 12:05 | NUR ---
F/u 10/30: Pt remains intubated tolerating TF at goal GRV WNL. Propofol discontinued pending hopeful extubation today per car dumper. Rectal tube in place -150ml last night per RN pending further documentation in EMR. Will monitor for further nutrition intervention needs this admit. Recommendations: 1) Continuous TF using Vital HP at 75ml/hr goal; to provide 1800ml volume/day, 1800kcals, 157g protein, 1505ml free water. 2) Monitor for Propofol rate and further EN adjustment needs 3) Additional water flush 200 Q4H; monitor serum Na 4) Prealbumin q Saturday/; Daily scaled weights 5) advance diet as medically indicated to regular per GULLET SLITTER/MD recs; previously on pureed diet with NTL per 10/24. Consider carb controlled diet IF PO adequate and Glu elevated A1C 6.5% 6) Continue routine Thiamine, Folic acid, and MVI for EtOH hx 7) New DM this admit per physician; A1C 6.5% w/ no prior hx or DM home meds per EMR. Would require DM dx by physician prior to RD visit for education Addendum: 10/30/21 at [address] Amended: Links added.
[2021-10-30] MEDS: nystatin 500,000 unit/5ML UD oral suspension NG SCH ×2 (12:24→20:36)
--- NOTE | 2021-10-30 15:00 | NUR ---
Called Dr Barnes regarding patients high blood pressure, stated to order hydralazine 10mg prn Q4h for systolic blood pressure greater than 170
[2021-10-30] MEDS: hydrALAZINE 20mg/ml inj. IV PRN ×2 (16:06→20:36)
--- NOTE | 2021-10-30 17:57 | NUR ---
Problems reprioritized. Patient report given, questions answered & plan of care reviewed with Fanta FRY.
--- NOTE | 2021-10-30 18:30 | NUR ---
Patient in room CICU 2011. I have received report from ANG Davis and had the opportunity to ask questions and assume patient care.
[2021-10-30] MEDS: lansoprazole 15mg solutab NG SCH (18:56)
[2021-10-31] VITALS (24 sets, daily range): BP systolic 153–187; BP diastolic 73–104
[2021-10-31 02:39] LABS: BASOPHILS % (AUTO) 0.5 % (0-1); EOSINOPHILS # (AUTO) 0.2 X10'3 (0-0.9); EOSINOPHILS % (AUTO) 2.9 % (0-6); HEMATOCRIT 26.4 % (35.0-45.0); HEMOGLOBIN 8.8 g/dl (12.0-16.0); LYMPHOCYTES # (AUTO) 1.1 X10'3 (1.1-4.8); LYMPHOCYTES % (AUTO) 13.2 % (21-51); MEAN CORPUSCULAR HEMOGLOBIN 30.6 PG (27.0-31.0); MEAN CORPUSCULAR HGB CONC 33.3 g/dL (33.0-36.5); MEAN CORPUSCULAR VOLUME 92.1 FL (78-98); MEAN PLATELET VOLUME 8.5 FL (7.4-10.4); MONOCYTES # (AUTO) 0.7 X10'3 (0-0.9); MONOCYTES % (AUTO) 8.7 % (2-12); NEUTROPHILS # (AUTO) 6.3 X10'3 (1.8-7.7); NEUTROPHILS % (AUTO) 74.7 % (42-75); PLATELET COUNT 414 X10'3 (140-440); RED BLOOD COUNT 2.86 X10'6 (4.20-5.60); RED CELL DISTRIBUTION WIDTH 13.9 % (11.5-14.5); WHITE BLOOD COUNT 8.4 X10'3 (4.5-11.0)
[2021-10-31 02:49] LABS: ALANINE AMINOTRANSFERASE 37 U/L (12-78); ALBUMIN 1.8 G/DL (3.4-5.0); ALBUMIN/GLOBULIN RATIO 0.4 (1.1-1.5); ALKALINE PHOSPHATASE 207 IU/L (46-116); ANION GAP 11 (8-16); ASPARTATE AMINO TRANSFERASE 22 U/L (10-37); BILIRUBIN,TOTAL 0.3 MG/DL (0.1-1.0); BLOOD UREA NITROGEN 18 MG/DL (7-18); BUN/CREATININE RATIO 23.1 (6.6-38.0); CALCIUM 10.8 MG/DL (8.5-10.1); CHLORIDE 111 MMOL/L (99-107); CREATININE 0.78 MG/DL (0.40-0.90); GLUCOSE 103 MG/DL (70-104); POTASSIUM 3.2 MMOL/L (3.5-5.1); SODIUM 142 MMOL/L (135-145); TOTAL CARBON DIOXIDE 20.3 MMOL/L (24-32); TOTAL PROTEIN 6.9 G/DL (6.4-8.2); TRIGLYCERIDES 191 MG/DL (20-135); eGFR 74 ML/MIN
[2021-10-31] MEDS: ipratropium/albuterol 3ml nebule NEB SCH ×6 (03:22→23:14)
[2021-10-31] MEDS: sodium chloride 3% for inhalation 4ml nebule IH SCH ×4 (03:22→20:38)
[2021-10-31 03:23] LABS: PLATELET ESTIMATE NORMAL; TOTAL CELLS COUNTED 100
[2021-10-31] MEDS ORDERED: potassium Cl 20mEq/100mL bag 100 ML IV PRN (03:25)
[2021-10-31] MEDS: potassium Cl 20mEq/100mL bag 100 ML IV PRN ×2 (03:32→05:56)
[2021-10-31] MEDS: heparin, porcine 5000 units/ml vial SQ SCH ×3 (03:33→19:49)
--- NOTE | 2021-10-31 06:20 | NUR ---
Problems reprioritized. Patient report given, questions answered & plan of care reviewed with ANG Rojo.
--- NOTE | 2021-10-31 07:20 | NUR ---
Patient in room [facility] 2011. I have received report from Fanta FRY and had the opportunity to ask questions and assume patient care. Addendum: 10/31/21 at 0720 by Alia Velasquez RN Amended: Links added.
--- NOTE | 2021-10-31 07:42 | NUR ---
Pt. passed swallow eval per ST. Pt. can have pureed food with nectar thick liquids.
[2021-10-31] MEDS: K and/or MAG REPLACEMENT MC SCH ×2 (08:00→18:17)
[2021-10-31] MEDS: lansoprazole 15mg solutab NG SCH (08:19)
[2021-10-31] MEDS: thiamine 100mg tablet NG SCH (08:19)
[2021-10-31] MEDS: amiodarone 200mg tablet NG SCH (08:19)
[2021-10-31] MEDS: duloxetine 30mg CAPSULE.DR NG SCH (08:19)
[2021-10-31] MEDS: ferrous sulfate 300mg/5ml UD oral liquid NG SCH (08:19)
[2021-10-31] MEDS: aspirin 81mg tab.chew NG SCH (08:19)
[2021-10-31] MEDS: MULTIVIT-MIN/FERROUS GLUCONATE 9 MG/15 ML LIQUID NG SCH (08:19)
[2021-10-31] MEDS: folic acid 1mg tablet NG SCH (08:19)
[2021-10-31] MEDS: atorvastatin 20mg tablet NG SCH (08:20)
[2021-10-31] MEDS: ascorbic acid 500mg tablet NG SCH (08:20)
[2021-10-31] MEDS: nicotine 14mg patch - 24hr TD SCH (08:20)
[2021-10-31] MEDS: VANCOmycin 1250MG/NS 250ml Bag 250 ML IV SCH (08:22)
[2021-10-31] MEDS: nystatin 500,000 unit/5ML UD oral suspension NG SCH (08:22)
[2021-10-31] MEDS: hydrALAZINE 20mg/ml inj. IV PRN ×4 (08:33→21:35)
--- NOTE | 2021-10-31 10:24 | NUR ---
ROUNDS NOTE: Dr. Gonzales to keep pt. in ICU today as she has the potential to decline.
[2021-10-31] MEDS: fluconazole-Diflucan 200mg/NS 100 ML IV SCH (10:27)
[2021-10-31] MEDS ORDERED: acetaminophen 325mg/10.15ml oral unit dose solution PO PRN (10:59)
[2021-10-31] MEDS ORDERED: MULTIVIT-MIN/FERROUS GLUCONATE 9 MG/15 ML LIQUID PO SCH (11:02)
--- NOTE | 2021-10-31 11:46 | NUR ---
F/u 10/31: Pt extubated yesterday advanced to pureed/nectar thick diet per TURNER OFF recs first PO pending WL. Pt on room air no longer receiving EN at this time. Will monitor for PO trends and nutrition intervention needs. Recommendations: 1) advance diet as medically indicated to regular per TURNER OFF/MD recs; consider carb controlled restriction IF PO adequate and Glu elevated A1C 6.5% 2) Monitor for PO trends and ONS needs 3) Continue routine Thiamine, Folic acid, and MVI for EtOH hx 4) bowel care per rx; rectal tube in place w/ continued liquid stools per EMR 5) New DM this admit per physician; A1C 6.5% w/ no prior hx or DM home meds per EMR. Would require DM dx and pt notification by physician prior to RD visit for education Addendum: 10/31/21 at [address] Amended: Links added.
[2021-10-31] MEDS: nystatin 500,000 unit/5ML UD oral suspension PO SCH ×2 (12:36→21:09)
[2021-10-31 14:14] LABS: ATYPICAL PANCA <1:20 titer (Neg:<1:20); CYTOPLASMIC (C-ANCA) <1:20 titer (Neg:<1:20); PERINUCLEAR (P-ANCA) <1:20 titer (Neg:<1:20)
[2021-10-31] MEDS: LORazepam 2 mg/ml vial IV PRN (15:24)
[2021-10-31] MEDS: ascorbic acid 500mg tablet PO SCH (17:08)
--- NOTE | 2021-10-31 18:13 | NUR ---
Problems reprioritized. Patient report given, questions answered & plan of care reviewed with Fanta FRY.
--- NOTE | 2021-10-31 18:30 | NUR ---
Patient in room [facility] 2011. I have received report from ANG Rojo and had the opportunity to ask questions and assume patient care.
[2021-10-31] MEDS: ferrous sulfate 300mg/5ml UD oral liquid PO SCH (19:49)
[2021-10-31] MEDS: lansoprazole 15mg solutab PO SCH (19:49)
[2021-10-31] MEDS: amiodarone 200mg tablet PO SCH (19:50)
[2021-11-01] VITALS (24 sets, daily range): BP systolic 147–190; BP diastolic 75–108
[2021-11-01] MEDS: ipratropium/albuterol 3ml nebule NEB SCH ×6 (03:19→22:53)
[2021-11-01] MEDS: heparin, porcine 5000 units/ml vial SQ SCH ×3 (04:20→20:26)
[2021-11-01] MEDS: hydrALAZINE 20mg/ml inj. IV PRN ×2 (05:35→22:44)
[2021-11-01 06:09] LABS: BASOPHILS # (AUTO) 0.1 X10'3 (0-0.2); BASOPHILS % (AUTO) 0.6 % (0-1); EOSINOPHILS # (AUTO) 0.2 X10'3 (0-0.9); EOSINOPHILS % (AUTO) 1.7 % (0-6); HEMATOCRIT 28.2 % (35.0-45.0); HEMOGLOBIN 9.4 g/dl (12.0-16.0); LYMPHOCYTES # (AUTO) 1.1 X10'3 (1.1-4.8); LYMPHOCYTES % (AUTO) 11.6 % (21-51); MEAN CORPUSCULAR HEMOGLOBIN 30.5 PG (27.0-31.0); MEAN CORPUSCULAR HGB CONC 33.4 g/dL (33.0-36.5); MEAN CORPUSCULAR VOLUME 91.3 FL (78-98); MEAN PLATELET VOLUME 8.8 FL (7.4-10.4); MONOCYTES % (AUTO) 10.5 % (2-12); NEUTROPHILS % (AUTO) 75.6 % (42-75); PLATELET COUNT 483 X10'3 (140-440); RED BLOOD COUNT 3.08 X10'6 (4.20-5.60); WHITE BLOOD COUNT 9.3 X10'3 (4.5-11.0)
[2021-11-01 06:22] LABS: ALANINE AMINOTRANSFERASE 38 U/L (12-78); ALBUMIN/GLOBULIN RATIO 0.3 (1.1-1.5); ALKALINE PHOSPHATASE 170 IU/L (46-116); ANION GAP 14 (8-16); ASPARTATE AMINO TRANSFERASE 26 U/L (10-37); BILIRUBIN,TOTAL 0.4 MG/DL (0.1-1.0); BLOOD UREA NITROGEN 19 MG/DL (7-18); BUN/CREATININE RATIO 24.4 (6.6-38.0); CHLORIDE 111 MMOL/L (99-107); CREATININE 0.78 MG/DL (0.40-0.90); GLUCOSE 130 MG/DL (70-104); POTASSIUM 3.3 MMOL/L (3.5-5.1); SODIUM 142 MMOL/L (135-145); TOTAL CARBON DIOXIDE 17.3 MMOL/L (24-32); TOTAL PROTEIN 7.9 G/DL (6.4-8.2); eGFR 74 ML/MIN
[2021-11-01 06:25] LABS: CALCIUM 12.1 MG/DL (8.5-10.1)
--- NOTE | 2021-11-01 06:36 | NUR ---
Problems reprioritized. Patient report given, questions answered & plan of care reviewed with ANG Davis.
--- NOTE | 2021-11-01 07:12 | NUR ---
Patient in room C[facility] 2012. I have received report from Fanta Austin and had the opportunity to ask questions and assume patient care.
[2021-11-01 07:25] LABS: LARGE PLATELETS FEW; NUCLEATED RED BLOOD CELLS 1 /100WBC (0-0); PLATELET ESTIMATE INCREASED; TOTAL CELLS COUNTED 100
[2021-11-01 07:26] LABS: POLYCHROMASIA 1+
[2021-11-01] MEDS: sodium chloride 3% for inhalation 4ml nebule IH SCH (07:52)
[2021-11-01] MEDS: K and/or MAG REPLACEMENT MC SCH ×2 (08:00→20:00)
[2021-11-01] MEDS: VANCOmycin 1250MG/NS 250ml Bag 250 ML IV SCH (08:12)
[2021-11-01] MEDS: fluconazole-Diflucan 200mg/NS 100 ML IV SCH (08:12)
[2021-11-01] MEDS: nicotine 14mg patch - 24hr TD SCH (08:14)
[2021-11-01] MEDS: thiamine 100mg tablet PO SCH (08:15)
[2021-11-01] MEDS: atorvastatin 20mg tablet PO SCH (08:15)
[2021-11-01] MEDS: ferrous sulfate 300mg/5ml UD oral liquid PO SCH ×2 (08:15→20:26)
[2021-11-01] MEDS: folic acid 1mg tablet PO SCH (08:15)
[2021-11-01] MEDS: nystatin 500,000 unit/5ML UD oral suspension PO SCH ×3 (08:15→20:26)
[2021-11-01] MEDS: lansoprazole 15mg solutab PO SCH ×2 (08:16→20:26)
[2021-11-01] MEDS: ascorbic acid 500mg tablet PO SCH ×2 (08:16→17:41)
[2021-11-01] MEDS: amiodarone 200mg tablet PO SCH ×2 (08:16→20:26)
[2021-11-01] MEDS: aspirin 81mg tab.chew PO SCH (08:16)
[2021-11-01] MEDS: duloxetine 30mg CAPSULE.DR PO SCH (08:16)
--- NOTE | 2021-11-01 11:05 | NUR ---
Rounds note reviewed labs, meds and assessment findings. New orders to D/c araujo, keep rectal tube in place for another 24hrs, addressed patients home meds as well. Would like to transfer patient to [facility] once ready. Per discharge she is being followed by [facility]
--- NOTE | 2021-11-01 12:15 | NUR ---
Michelle D/floyd per MD order, alma in place
--- NOTE | 2021-11-01 18:09 | NUR ---
Problems reprioritized. Patient report given, questions answered & plan of care reviewed with Fanta FRY.
--- NOTE | 2021-11-01 18:13 | NUR ---
Patient in room CICU 2011. I have received report from ANG Davis and had the opportunity to ask questions and assume patient care.
[2021-11-02] VITALS (24 sets, daily range): BP systolic 134–185; BP diastolic 71–111
--- NOTE | 2021-11-02 01:42 | NUR ---
Dr. Fallon called to notify him of patient's high blood pressure that has had no response to the PRN hydralazine. did not answer, voicemail left, awaiting call back.
--- NOTE | 2021-11-02 02:52 | NUR ---
Patient had not voided this shift so patient was bladder scanned 718mL found. Patient stated that she did not feel like voided. I encouraged her to try voiding and she successfully put out 600mL via the wick.
[2021-11-02] MEDS: ipratropium/albuterol 3ml nebule NEB SCH ×6 (03:12→23:17)
[2021-11-02] MEDS: hydrALAZINE 20mg/ml inj. IV PRN ×2 (03:26→06:39)
[2021-11-02] MEDS: heparin, porcine 5000 units/ml vial SQ SCH ×3 (03:27→20:16)
--- NOTE | 2021-11-02 06:23 | NUR ---
Patient in room [facility] 2011. I have received report from ANG Paredes and had the opportunity to ask questions and assume patient care. Addendum: 11/02/21 at 0625 by Fanta Joseph RN Problems reprioritized. Patient report given, questions answered & plan of care reviewed with ANG Paredes.
[2021-11-02] MEDS: thiamine 100mg tablet PO SCH (07:56)
[2021-11-02] MEDS: lansoprazole 15mg solutab PO SCH ×2 (07:56→20:16)
[2021-11-02] MEDS: duloxetine 30mg CAPSULE.DR PO SCH (07:56)
[2021-11-02] MEDS: ferrous sulfate 300mg/5ml UD oral liquid PO SCH ×2 (07:56→20:16)
[2021-11-02] MEDS: ascorbic acid 500mg tablet PO SCH ×2 (07:56→18:17)
[2021-11-02] MEDS: amiodarone 200mg tablet PO SCH ×2 (07:56→20:15)
[2021-11-02] MEDS: aspirin 81mg tab.chew PO SCH (07:56)
[2021-11-02] MEDS: folic acid 1mg tablet PO SCH (07:57)
[2021-11-02] MEDS: cloNIDine 0.1 mg tablet PO SCH (07:57)
[2021-11-02] MEDS: fluconazole-Diflucan 200mg/NS 100 ML IV SCH (07:57)
[2021-11-02] MEDS: nicotine 14mg patch - 24hr TD SCH (07:57)
[2021-11-02] MEDS: atorvastatin 20mg tablet PO SCH (07:57)
[2021-11-02] MEDS: multivitamins, therapeutics tablet PO SCH (07:57)
[2021-11-02] MEDS: K and/or MAG REPLACEMENT MC SCH ×2 (08:00→19:57)
[2021-11-02] MEDS ORDERED: amLODIPine 5mg tablet PO SCH ×2 (08:00→11:48)
[2021-11-02 08:15] LABS: BASOPHILS # (AUTO) 0.1 X10'3 (0-0.2); BASOPHILS % (AUTO) 0.7 % (0-1); EOSINOPHILS # (AUTO) 0.2 X10'3 (0-0.9); HEMATOCRIT 29.5 % (35.0-45.0); HEMOGLOBIN 9.9 g/dl (12.0-16.0); LYMPHOCYTES # (AUTO) 1.1 X10'3 (1.1-4.8); LYMPHOCYTES % (AUTO) 12.3 % (21-51); MEAN CORPUSCULAR HEMOGLOBIN 30.9 PG (27.0-31.0); MEAN CORPUSCULAR HGB CONC 33.4 g/dL (33.0-36.5); MEAN CORPUSCULAR VOLUME 92.6 FL (78-98); MEAN PLATELET VOLUME 7.8 FL (7.4-10.4); MONOCYTES # (AUTO) 1.1 X10'3 (0-0.9); MONOCYTES % (AUTO) 11.6 % (2-12); NEUTROPHILS # (AUTO) 6.8 X10'3 (1.8-7.7); NEUTROPHILS % (AUTO) 73.4 % (42-75); PLATELET COUNT 481 X10'3 (140-440); RED BLOOD COUNT 3.19 X10'6 (4.20-5.60); RED CELL DISTRIBUTION WIDTH 14.3 % (11.5-14.5); WHITE BLOOD COUNT 9.3 X10'3 (4.5-11.0)
[2021-11-02 08:43] LABS: ALANINE AMINOTRANSFERASE 28 U/L (12-78); ALBUMIN 2.1 G/DL (3.4-5.0); ALBUMIN/GLOBULIN RATIO 0.4 (1.1-1.5); ALKALINE PHOSPHATASE 150 IU/L (46-116); ANION GAP 15 (8-16); ASPARTATE AMINO TRANSFERASE 20 U/L (10-37); BILIRUBIN,TOTAL 0.3 MG/DL (0.1-1.0); BLOOD UREA NITROGEN 16 MG/DL (7-18); BUN/CREATININE RATIO 20.8 (6.6-38.0); CALCIUM 11.2 MG/DL (8.5-10.1); CHLORIDE 112 MMOL/L (99-107); CREATININE 0.77 MG/DL (0.40-0.90); GLUCOSE 119 MG/DL (70-104); POTASSIUM 3.2 MMOL/L (3.5-5.1); SODIUM 144 MMOL/L (135-145); TOTAL CARBON DIOXIDE 17.4 MMOL/L (24-32); TOTAL PROTEIN 7.3 G/DL (6.4-8.2); TRIGLYCERIDES 189 MG/DL (20-135); eGFR 75 ML/MIN
[2021-11-02] MEDS: nystatin 500,000 unit/5ML UD oral suspension PO SCH ×3 (08:45→20:16)
[2021-11-02] MEDS: VANCOmycin 1250MG/NS 250ml Bag 250 ML IV SCH (10:15)
[2021-11-02] MEDS ORDERED: methylPREDNISolone sod succ 125mg/2ml vial IV ONE (11:55)
[2021-11-02] MEDS: glycopyrrolate 1mg tablet PO SCH (17:00)
--- NOTE | 2021-11-02 17:27 | NUR ---
patient bladder scanned retaining urine, md notified order received to bladder scan q4hrs and straight cath if greater than 300ml.
[2021-11-02] MEDS: potassium Cl 20mEq/100mL bag 100 ML IV PRN (18:17)
[2021-11-02] MEDS: losartan 50mg tablet PO SCH (20:15)
--- NOTE | 2021-11-02 20:30 | NUR ---
RN gave patient CHG wipes bath. Giovana care performed. Complete linen change. Pt turned to left lateral side. Bed in lowest position, call ivan within reach. Pt denies needs.
--- NOTE | 2021-11-02 21:30 | NUR ---
Bladder scan 140ml at this time.
[2021-11-03] VITALS (14 sets, daily range): BP systolic 110–158; BP diastolic 51–95
[2021-11-03] MEDS: ipratropium/albuterol 3ml nebule NEB SCH ×3 (02:59→11:06)
[2021-11-03 03:15] LABS: BASOPHILS % (AUTO) 0.2 % (0-1); EOSINOPHILS % (AUTO) 0.1 % (0-6); HEMATOCRIT 28.9 % (35.0-45.0); HEMOGLOBIN 9.6 g/dl (12.0-16.0); LYMPHOCYTES # (AUTO) 0.7 X10'3 (1.1-4.8); LYMPHOCYTES % (AUTO) 9.4 % (21-51); MEAN CORPUSCULAR HEMOGLOBIN 30.7 PG (27.0-31.0); MEAN CORPUSCULAR HGB CONC 33.3 g/dL (33.0-36.5); MEAN CORPUSCULAR VOLUME 92.2 FL (78-98); MONOCYTES # (AUTO) 0.1 X10'3 (0-0.9); MONOCYTES % (AUTO) 1.1 % (2-12); NEUTROPHILS # (AUTO) 6.5 X10'3 (1.8-7.7); NEUTROPHILS % (AUTO) 89.2 % (42-75); PLATELET COUNT 449 X10'3 (140-440); RED BLOOD COUNT 3.13 X10'6 (4.20-5.60); RED CELL DISTRIBUTION WIDTH 14.2 % (11.5-14.5); WHITE BLOOD COUNT 7.3 X10'3 (4.5-11.0)
[2021-11-03 03:27] LABS: ALANINE AMINOTRANSFERASE 24 U/L (12-78); ALBUMIN 2.1 G/DL (3.4-5.0); ALBUMIN/GLOBULIN RATIO 0.4 (1.1-1.5); ALKALINE PHOSPHATASE 138 IU/L (46-116); ANION GAP 11 (8-16); ASPARTATE AMINO TRANSFERASE 13 U/L (10-37); BILIRUBIN,TOTAL 0.3 MG/DL (0.1-1.0); BLOOD UREA NITROGEN 20 MG/DL (7-18); BUN/CREATININE RATIO 20.4 (6.6-38.0); CHLORIDE 112 MMOL/L (99-107); CREATININE 0.98 MG/DL (0.40-0.90); GLUCOSE 193 MG/DL (70-104); POTASSIUM 4.3 MMOL/L (3.5-5.1); SODIUM 143 MMOL/L (135-145); TOTAL CARBON DIOXIDE 19.6 MMOL/L (24-32); TRIGLYCERIDES 111 MG/DL (20-135); eGFR 57 ML/MIN
[2021-11-03 03:37] LABS: CALCIUM 12.3 MG/DL (8.5-10.1)
[2021-11-03 04:19] LABS: TOTAL CELLS COUNTED 100
[2021-11-03 04:20] LABS: PLATELET ESTIMATE INCREASED
[2021-11-03] MEDS: heparin, porcine 5000 units/ml vial SQ SCH ×2 (04:51→12:16)
--- NOTE | 2021-11-03 05:00 | NUR ---
RN flushed rectal tube with 45ml of water, rectal tube appears patent. 100ml output from rectal tube for this RN's shift.
[2021-11-03] MEDS: K and/or MAG REPLACEMENT MC SCH (08:00)
[2021-11-03] MEDS: fluconazole-Diflucan 200mg/NS 100 ML IV SCH (08:05)
[2021-11-03] MEDS: ferrous sulfate 300mg/5ml UD oral liquid PO SCH (08:10)
[2021-11-03] MEDS: nystatin 500,000 unit/5ML UD oral suspension PO SCH ×2 (08:10→12:16)
[2021-11-03] MEDS: duloxetine 30mg CAPSULE.DR PO SCH (08:11)
[2021-11-03] MEDS: multivitamins, therapeutics tablet PO SCH (08:11)
[2021-11-03] MEDS: atorvastatin 20mg tablet PO SCH (08:11)
[2021-11-03] MEDS: ascorbic acid 500mg tablet PO SCH (08:11)
[2021-11-03] MEDS: aspirin 81mg tab.chew PO SCH (08:11)
[2021-11-03] MEDS: nicotine 14mg patch - 24hr TD SCH (08:11)
[2021-11-03] MEDS: lansoprazole 15mg solutab PO SCH (08:11)
[2021-11-03] MEDS: thiamine 100mg tablet PO SCH (08:11)
[2021-11-03] MEDS: amiodarone 200mg tablet PO SCH (08:11)
[2021-11-03] MEDS: folic acid 1mg tablet PO SCH (08:11)
[2021-11-03] MEDS: cloNIDine 0.1 mg tablet PO SCH (08:12)
[2021-11-03] MEDS: glycopyrrolate 1mg tablet PO SCH (08:12)
[2021-11-03] MEDS: losartan 50mg tablet PO SCH (08:12)
[2021-11-03] MEDS: VANCOmycin 1250MG/NS 250ml Bag 250 ML IV SCH (09:08)
--- NOTE | 2021-11-03 13:15 | NUR ---
[facility] at bedside to transport patient to [facility]; report given to [facility] transport. 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 Brother Dwayne called and notified of transfer.
== END 2021-11-03 13:15 | DRG 870 ==
LOC: ER 09:12 → ED HOLD 12:00 → PCU 3S 10-07 07:43 → ICU 2S 10-08 02:05 → PCU 3S 10-18 13:22 → CICU 2S 10-20 05:13 → PCU 3S 10-20 16:29 → CICU 2S 10-20 16:32
PROVIDERS: ADMIT Internal Medicine; ATTEND Internal Medicine
PROC: 5A0935A Assistance with Respiratory Ventilation, Less than 24 Consecutive Hours, High Flow/Velocity Cannula (ICD-10-PCS; 2021-10-07)
PROC: 5A09357 Assistance with Respiratory Ventilation, Less than 24 Consecutive Hours, Continuous Positive Airway Pressure (ICD-10-PCS; 2021-10-07)
PROC: 5A1955Z Respiratory Ventilation, Greater than 96 Consecutive Hours (ICD-10-PCS; principal; 2021-10-08)
PROC: 0BH17EZ Insertion of Endotracheal Airway into Trachea, Via Natural or Artificial Opening (ICD-10-PCS; 2021-10-08)
PROC: 02HV33Z Insertion of Infusion Device into Superior Vena Cava, Percutaneous Approach (ICD-10-PCS; 2021-10-10)
PROC: B548ZZA Ultrasonography of Superior Vena Cava, Guidance (ICD-10-PCS; 2021-10-10)
PROC: 0BJ08ZZ Inspection of Tracheobronchial Tree, Via Natural or Artificial Opening Endoscopic (ICD-10-PCS; 2021-10-25)
PROC: 02HV33Z Insertion of Infusion Device into Superior Vena Cava, Percutaneous Approach (ICD-10-PCS; 2021-10-25)
PROC: B548ZZA Ultrasonography of Superior Vena Cava, Guidance (ICD-10-PCS; 2021-10-25)
PROC: 30233N1 Transfusion of Nonautologous Red Blood Cells into Peripheral Vein, Percutaneous Approach (ICD-10-PCS; 2021-10-27)
DX: A40.0 Sepsis due to streptococcus, group A (principal); J15.4 Pneumonia due to other streptococci; I21.4 Non-ST elevation (NSTEMI) myocardial infarction; R65.21 Severe sepsis with septic shock; G93.41 Metabolic encephalopathy; N17.0 Acute kidney failure with tubular necrosis; J96.01 Acute respiratory failure with hypoxia; J44.1 Chronic obstructive pulmonary disease with (acute) exacerbation; J44.0 Chronic obstructive pulmonary disease with (acute) lower respiratory infection; I47.2 Ventricular tachycardia; I47.1 Supraventricular tachycardia; E46 Unspecified protein-calorie malnutrition; B49 Unspecified mycosis; E87.1 Hypo-osmolality and hyponatremia; F17.200 Nicotine dependence, unspecified, uncomplicated; Z20.822 Contact with and (suspected) exposure to COVID-19; I10 Essential (primary) hypertension; I48.91 Unspecified atrial fibrillation; F41.9 Anxiety disorder, unspecified; E66.01 Morbid (severe) obesity due to excess calories; E88.09 Other disorders of plasma-protein metabolism, not elsewhere classified; G83.9 Paralytic syndrome, unspecified; G89.29 Other chronic pain; M54.9 Dorsalgia, unspecified; E78.5 Hyperlipidemia, unspecified; E87.6 Hypokalemia; K21.9 Gastro-esophageal reflux disease without esophagitis; Z99.81 Dependence on supplemental oxygen; Z90.710 Acquired absence of both cervix and uterus; Z90.49 Acquired absence of other specified parts of digestive tract; Z85.3 Personal history of malignant neoplasm of breast; Z82.5 Family history of asthma and other chronic lower respiratory diseases; I25.2 Old myocardial infarction; Z79.82 Long term (current) use of aspirin; Z68.32 Body mass index [BMI] 32.0-32.9, adult; Z79.899 Other long term (current) drug therapy; Z88.5 Allergy status to narcotic agent; A41.02 Sepsis due to Methicillin resistant Staphylococcus aureus
CPT/HCPCS: 31645; 36410; 36415; 36430; 36569; 36573; 36600; 71045; 76770; 76942; 80048; 80053; 80061; 80076; 80202; 81001; 81003; 82550; 82570; 82595; 82803; 82810; 82948; 83036; 83540; 83550; 83605; 83735; 83880; 83930; 83935; 84100; 84132; 84134; 84145; 84300; 84443; 84478; 84484; 85007; 85018; 85025; 85610; 85651; 85730; 86038; 86140; 86256; 86885; 86900; 86901; 86920; 87040; 87070; 87077; 87088; 87186; 87502; 87503; 87635; 90732; 92508; 92616; 93005; 93306; 93308; 93925; 93970; 93971; 94002; 94003; 94640; 94660; 94667; 94668; 94760; 94799; 96365; 96375; 97110; 97161; 97164; 97530; 99285; C1751; C9113; C9803; G0257; G0378; J0131; J0171; J0282; J0295; J0360; J0456; J0692; J0696; J1450; J1644; J1815; J1940; J2020; J2060; J2150; J2250; J2270; J2274; J2370; J2543; J2704; J2920; J2930; J3010; J3370; J3475; J3480; J3490; J7030; J7040; J7050; J7060; J7070; J7120; P9016; P9045

== ENCOUNTER 2021-12-20 13:57 | Inpatient (IN) | payer MEDICARE, MEDICAID ==
[~2021-12-20] VITALS: Ht 172.7 cm; Wt 84.1 kg
[~2021-12-20 13:57] MED LIST changes: +AMLO5TAB16 PO; +AZIL1TAB2 PO; +CLON0.1T2 PO; +DULO60CA65 PO; +FLO110IN IH; -FOLI1TAB27 PO; -HYDR-4383 PO; -ONDA4TAB6 PO; -PANT-47 PO; +PANT40TA54 PO; -PARO40TA PO; -SUCR1TAB34 PO; -THI100T PO; -rocuronium 10mg/ml inj IV ONE; -sod chloride 0.9% 10ml flush syringe IV ONE
[2021-12-20] MEDS ORDERED: morphine 4 MG/ML inj SYRINge IV ONE ×2 (17:15→21:30)
[2021-12-20 18:03] LABS: ALANINE AMINOTRANSFERASE 12 U/L (12-78); ALBUMIN/GLOBULIN RATIO 0.6 (1.1-1.5); ALKALINE PHOSPHATASE 121 IU/L (46-116); ANION GAP 15 (8-16); ASPARTATE AMINO TRANSFERASE 11 U/L (10-37); BILIRUBIN,TOTAL 0.3 MG/DL (0.1-1.0); BLOOD UREA NITROGEN 15 MG/DL (7-18); BUN/CREATININE RATIO 15.6 (6.6-38.0); CALCIUM 9.5 MG/DL (8.5-10.1); CHLORIDE 98 MMOL/L (99-107); CREATININE 0.96 MG/DL (0.40-0.90); GLUCOSE 116 MG/DL (70-104); POTASSIUM 3.6 MMOL/L (3.5-5.1); SODIUM 132 MMOL/L (135-145); TOTAL CARBON DIOXIDE 19.3 MMOL/L (24-32); TOTAL PROTEIN 7.7 G/DL (6.4-8.2); eGFR 58 ML/MIN
[2021-12-20 18:28] LABS: BASOPHILS # (AUTO) 0.1 X10'3 (0-0.2); BASOPHILS % (AUTO) 0.2 % (0-1); EOSINOPHILS % (AUTO) 0 % (0-6); HEMATOCRIT 31.4 % (35.0-45.0); HEMOGLOBIN 10.3 g/dl (12.0-16.0); LYMPHOCYTES # (AUTO) 1.6 X10'3 (1.1-4.8); LYMPHOCYTES % (AUTO) 5.6 % (21-51); MEAN CORPUSCULAR HEMOGLOBIN 27.4 PG (27.0-31.0); MEAN CORPUSCULAR HGB CONC 32.7 g/dL (33.0-36.5); MEAN PLATELET VOLUME 7.9 FL (7.4-10.4); MONOCYTES # (AUTO) 2.1 X10'3 (0-0.9); MONOCYTES % (AUTO) 7.2 % (2-12); NEUTROPHILS # (AUTO) 24.8 X10'3 (1.8-7.7); PLATELET COUNT 455 X10'3 (140-440); RED BLOOD COUNT 3.74 X10'6 (4.20-5.60); RED CELL DISTRIBUTION WIDTH 14.1 % (11.5-14.5)
[2021-12-20 18:37] LABS: WHITE BLOOD COUNT 28.6 X10'3 (4.5-11.0)
[2021-12-20] MEDS ORDERED: normal saline 1000ml 1,000 ML IV ONE (18:45)
[2021-12-20] MEDS: ampicillin/sulbac 3gm/NS 100ml 100 ML IV SCH ×2 (18:56→20:00)
[2021-12-20] MEDS ORDERED: iohexol 300mg/ml 100ml inj. ONE (19:03)
--- NOTE | 2021-12-20 19:03 | NUR ---
PT TO CT
--- NOTE | 2021-12-20 21:05 | NUR ---
Pt assisted to beside commode by RN. Pt denies any needs at this time
[2021-12-20 21:14] LABS: NEUTROPHILS % (MANUAL) 82 % (42-75); TOTAL CELLS COUNTED 100
[2021-12-20 21:15] LABS: BANDS% (MANUAL) 4 % (0-10); LYMPHOCYTES % (MANUAL) 6 % (21-51); MONOCYTES % (MANUAL) 8 % (2-12)
[2021-12-20 21:16] LABS: ANISOCYTOSIS 1+; HYPOCHROMASIA 1+; PLATELET ESTIMATE INCREASED
[2021-12-20] MEDS ORDERED: magnesium Cl slow-release 64mg tablet PO PRN (22:25)
[2021-12-20] MEDS ORDERED: magnesium 4gm in 100ml NS 100 ML IV PRN (22:25)
[2021-12-20] MEDS ORDERED: magnesium hydroxide 30ml (MOM) UD suspension PO PRN (22:25)
[2021-12-20] MEDS ORDERED: acetaminophen 325mg tablet PO PRN (22:25)
[2021-12-20] MEDS ORDERED: magnesium 2GM in 50ml NS 50 ML IV PRN (22:25)
[2021-12-20] MEDS ORDERED: ondansetron/PF 4mg/2ml inj IV PRN (22:25)
[2021-12-20] MEDS ORDERED: mag hydrox/Alum hydrox/simeth 30ml oral suspension PO PRN (22:25)
[2021-12-20] MEDS ORDERED: potassium CL 10mEq/100ml bag 100 ML IV PRN (22:25)
[2021-12-21 00:04] LABS: MAGNESIUM 1.2 MG/DL (1.5-2.4)
[2021-12-21] MEDS: ampicillin/sulbac 3gm/NS 100ml 100 ML IV SCH ×4 (01:52→20:39)
[2021-12-21] MEDS: morphine 2 MG/ML inj. syringe IV PRN ×3 (03:49→20:58)
[2021-12-21 04:50] LABS: BASOPHILS # (AUTO) 0.1 X10'3 (0-0.2); BASOPHILS % (AUTO) 0.4 % (0-1); EOSINOPHILS # (AUTO) 0.1 X10'3 (0-0.9); EOSINOPHILS % (AUTO) 0.3 % (0-6); HEMATOCRIT 26.6 % (35.0-45.0); HEMOGLOBIN 8.8 g/dl (12.0-16.0); LYMPHOCYTES # (AUTO) 1.6 X10'3 (1.1-4.8); LYMPHOCYTES % (AUTO) 7.8 % (21-51); MEAN CORPUSCULAR HEMOGLOBIN 27.6 PG (27.0-31.0); MEAN CORPUSCULAR HGB CONC 33.2 g/dL (33.0-36.5); MEAN CORPUSCULAR VOLUME 83.3 FL (78-98); MEAN PLATELET VOLUME 7.2 FL (7.4-10.4); MONOCYTES # (AUTO) 2.1 X10'3 (0-0.9); MONOCYTES % (AUTO) 10.2 % (2-12); NEUTROPHILS # (AUTO) 16.9 X10'3 (1.8-7.7); NEUTROPHILS % (AUTO) 81.3 % (42-75); PLATELET COUNT 420 X10'3 (140-440); RED CELL DISTRIBUTION WIDTH 13.8 % (11.5-14.5); WHITE BLOOD COUNT 20.8 X10'3 (4.5-11.0)
[2021-12-21 05:04] LABS: ALANINE AMINOTRANSFERASE 10 U/L (12-78); ALBUMIN 2.2 G/DL (3.4-5.0); ALBUMIN/GLOBULIN RATIO 0.5 (1.1-1.5); ALKALINE PHOSPHATASE 108 IU/L (46-116); ANION GAP 11 (8-16); ASPARTATE AMINO TRANSFERASE 7 U/L (10-37); BILIRUBIN,TOTAL 0.3 MG/DL (0.1-1.0); BLOOD UREA NITROGEN 12 MG/DL (7-18); BUN/CREATININE RATIO 15.8 (6.6-38.0); CALCIUM 8.8 MG/DL (8.5-10.1); CHLORIDE 103 MMOL/L (99-107); CREATININE 0.76 MG/DL (0.40-0.90); GLUCOSE 93 MG/DL (70-104); MAGNESIUM 1.1 MG/DL (1.5-2.4); SODIUM 137 MMOL/L (135-145); TOTAL CARBON DIOXIDE 23.1 MMOL/L (24-32); TOTAL PROTEIN 6.3 G/DL (6.4-8.2); eGFR 76 ML/MIN
[2021-12-21 05:06] LABS: POTASSIUM 2.7 MMOL/L (3.5-5.1)
[2021-12-21] MEDS: POTASSIUM BICARB 20meq eff tab 20 MEQ TABLET.EFF PO PRN ×5 (05:14→22:38)
[2021-12-21] MEDS ORDERED: enoxaparin 40mg/0.4ml syringe SUBCUT SCH (08:00)
[2021-12-21] MEDS: docusate sod 100mg capsule PO SCH ×2 (08:13→20:39)
[2021-12-21] MEDS: K and/or MAG REPLACEMENT MC SCH ×2 (08:20→20:00)
[2021-12-21] MEDS ORDERED: ondansetron 4mg rapidly disintigrating tab PO PRN (12:05)
[2021-12-21] MEDS: HYDROcodone/acetaminophen 5mg/325mg tablet PO PRN ×3 (12:31→23:47)
[2021-12-21] MEDS ORDERED: DULO30CA52 PO (13:24)
[2021-12-21] MEDS ORDERED: ATOR20TA66 PO (13:24)
[2021-12-21] MEDS ORDERED: APIX5TAB3 PO (13:24)
[2021-12-21] MEDS ORDERED: AMIO200T61 PO (13:24)
[2021-12-21] MEDS ORDERED: ASCO500T23 PO (13:24)
[2021-12-21] MEDS ORDERED: THIA100T66 PO (13:24)
[2021-12-21] MEDS ORDERED: FOLI1TAB27 PO (13:24)
[2021-12-21] MEDS ORDERED: FERR325T7 PO (13:24)
[2021-12-21] MEDS ORDERED: ASPI-1265 PO (13:24)
[2021-12-21] MEDS ORDERED: VALS80TA32 PO (13:24)
[2021-12-21] MEDS ORDERED: NICO-631 TD (13:28)
[2021-12-21] MEDS ORDERED: ALBU2.5V10 NEB (13:28)
[2021-12-21] MEDS ORDERED: ATR0.5NEB INH (13:28)
[2021-12-21] MEDS ORDERED: albuterol 2.5 MG/3 ML nebule NEB PRN ×2 (14:05→15:35)
[2021-12-21 18:04] LABS: MAGNESIUM 3.6 MG/DL (1.5-2.4); POTASSIUM 3.4 MMOL/L (3.5-5.1)
[2021-12-21] MEDS: budesonide 0.5mg/2ml UD nebule IH SCH (19:43)
[2021-12-21 20:29] VITALS: BP 122/75
[2021-12-21] MEDS: cloNIDine 0.1 mg tablet PO SCH (20:39)
[2021-12-21] MEDS: amiodarone 200mg tablet PO SCH (20:39)
[2021-12-21] MEDS ORDERED: traZODone 50mg tablet PO SCH (21:00)
[2021-12-21 22:11] VITALS: BP 110/57
--- NOTE | 2021-12-21 23:21 | NUR ---
orders received for norco q4 instead of q6 from dr. yee. pt c/o pain still after norco and morphine earlier. up to BR again with assistance.
[2021-12-22] MEDS: ampicillin/sulbac 3gm/NS 100ml 100 ML IV SCH (03:07)
--- NOTE | 2021-12-22 03:34 | NUR ---
paged Dr. Delgado about positive blood cultures called from lab at 15.2 and 20.2 hours after drawing. pt on unasyn already. has hx of mrsa in CVL from last admission. orders for vanco received.
[2021-12-22] MEDS ORDERED: VANCOMYCIN IV ONE (04:05)
[2021-12-22] MEDS ORDERED: NORMAL SALINE IV ONE (04:05)
[2021-12-22] MEDS: HYDROcodone/acetaminophen 5mg/325mg tablet PO PRN ×3 (05:59→15:20)
--- NOTE | 2021-12-22 06:17 | NUR ---
reported to days. noted positive cultures and new vanco infusing at this time. pt refused IV restart for AC iv and will keep left arm straight to prevent occlusion.
[2021-12-22 06:50] VITALS: BP 107/62
--- NOTE | 2021-12-22 06:53 | NUR ---
Patient in room [facility] 4009. I have received report from sid tolentino and had the opportunity to ask questions and assume patient care.
[2021-12-22 07:39] LABS: BASOPHILS # (AUTO) 0.1 X10'3 (0-0.2); BASOPHILS % (AUTO) 0.9 % (0-1); EOSINOPHILS # (AUTO) 0.2 X10'3 (0-0.9); EOSINOPHILS % (AUTO) 2.2 % (0-6); HEMATOCRIT 26.2 % (35.0-45.0); HEMOGLOBIN 8.9 g/dl (12.0-16.0); LYMPHOCYTES # (AUTO) 1.5 X10'3 (1.1-4.8); LYMPHOCYTES % (AUTO) 17.1 % (21-51); MEAN CORPUSCULAR HEMOGLOBIN 28.5 PG (27.0-31.0); MEAN CORPUSCULAR HGB CONC 33.9 g/dL (33.0-36.5); MEAN PLATELET VOLUME 7.4 FL (7.4-10.4); MONOCYTES # (AUTO) 0.7 X10'3 (0-0.9); MONOCYTES % (AUTO) 7.8 % (2-12); NEUTROPHILS # (AUTO) 6.5 X10'3 (1.8-7.7); PLATELET COUNT 405 X10'3 (140-440); RED BLOOD COUNT 3.11 X10'6 (4.20-5.60); RED CELL DISTRIBUTION WIDTH 13.9 % (11.5-14.5)
[2021-12-22 07:55] LABS: ALANINE AMINOTRANSFERASE 11 U/L (12-78); ALBUMIN 2.1 G/DL (3.4-5.0); ALBUMIN/GLOBULIN RATIO 0.6 (1.1-1.5); ALKALINE PHOSPHATASE 89 IU/L (46-116); ANION GAP 5 (8-16); ASPARTATE AMINO TRANSFERASE 15 U/L (10-37); BILIRUBIN,TOTAL 0.2 MG/DL (0.1-1.0); BLOOD UREA NITROGEN 9 MG/DL (7-18); BUN/CREATININE RATIO 10.8 (6.6-38.0); CALCIUM 8.7 MG/DL (8.5-10.1); CHLORIDE 106 MMOL/L (99-107); CREATININE 0.83 MG/DL (0.40-0.90); GLUCOSE 87 MG/DL (70-104); POTASSIUM 3.7 MMOL/L (3.5-5.1); SODIUM 137 MMOL/L (135-145); TOTAL CARBON DIOXIDE 25.8 MMOL/L (24-32); TOTAL PROTEIN 5.9 G/DL (6.4-8.2); eGFR 69 ML/MIN
[2021-12-22] MEDS ORDERED: atorvastatin 20mg tablet PO SCH (08:00)
[2021-12-22] MEDS ORDERED: losartan 50mg tablet PO SCH (08:00)
[2021-12-22] MEDS ORDERED: pantoprazole 40mg Tablet.DR PO SCH (08:00)
[2021-12-22] MEDS ORDERED: aspirin 81mg tab.chew PO SCH (08:00)
[2021-12-22] MEDS ORDERED: apixaban 5mg tablet PO SCH (08:00)
[2021-12-22] MEDS ORDERED: nicotine 14mg patch - 24hr TD SCH (08:00)
[2021-12-22] MEDS: K and/or MAG REPLACEMENT MC SCH (08:00)
[2021-12-22] MEDS ORDERED: duloxetine 30mg CAPSULE.DR PO SCH (08:00)
[2021-12-22] MEDS ORDERED: amLODIPine 5mg tablet PO SCH (08:00)
[2021-12-22] MEDS ORDERED: folic acid 1mg tablet PO SCH (08:00)
[2021-12-22] MEDS ORDERED: chlorthalidone 25mg tablet PO SCH (08:00)
[2021-12-22] MEDS ORDERED: ferrous sulfate 325mg tablet PO SCH (08:00)
[2021-12-22] MEDS: cloNIDine 0.1 mg tablet PO SCH (08:00)
[2021-12-22] MEDS ORDERED: thiamine 100mg tablet PO SCH (08:00)
[2021-12-22 08:10] VITALS: BP 92/47
[2021-12-22] MEDS: docusate sod 100mg capsule PO SCH (08:14)
[2021-12-22] MEDS: amiodarone 200mg tablet PO SCH (08:14)
[2021-12-22] MEDS: budesonide 0.5mg/2ml UD nebule IH SCH (08:16)
[2021-12-22] MEDS: morphine 2 MG/ML inj. syringe IV PRN (08:32)
[2021-12-22 10:19] VITALS: BP 106/61
[2021-12-22] MEDS ORDERED: DOXY-243 PO (11:35)
[2021-12-22] MEDS ORDERED: HYDR28CR14 TOP (11:35)
--- NOTE | 2021-12-22 11:45 | NUR ---
Malnutrition Consult: Pt admit DX neck cellulitis, anxiety, and HTN per EMR. Pt reports 14-23 pound wt loss w/ decreased intake [employer] per EMR. Pt seen by RD at bedside. Pt reports assumed wt loss during recent prior admit while intubated; no current scaled wt this admit so unable to accurately determine wt hx. Pt previously on pureed/nectar thick diet per [employer]ANT prior admit 10/30 though reports no issues chewing/swallowing at this time. Pt reports good appetite at this time and appears WD/WN during RD visit. Pt recent prior admit meeting needs via EN while intubated until 10/30. Pt lacks minimum malnutrition criteria at this time. Will monitor for nutrition intervention needs this admit. Addendum: 12/22/21 at [address] Amended: Links added.
--- NOTE | 2021-12-22 15:50 | NUR ---
PT DISCHARGED IN STABLE CONDITION. LEFT FACILITY IN PRIVATE VEHICLE WITH FAMILY. IV DC CANULA INTACT. FOLLOW UP INSTRUCTIONS GIVEN, PT AWARE SHE NEEDS TO MONITOR BP AT HOME AND FOLLOW UP WITH PCP. ALL QUESTIONS ANSWERED, ALL BELONGINGS IN HAND. Addendum: 12/22/21 at 1615 by Katie Reed RN Amended: Links added.
[2021-12-22] MEDS ORDERED: vancomycin/NS 1 GM ADD-VANTAGE 250 ML IV SCH (16:00)
[2021-12-24] MEDS ORDERED: VANCOMYCIN LEVEL IV ONE (03:30)
== END 2021-12-22 15:50 | disposition home or self-care (01) | DRG 872 ==
LOC: ER 13:57 → ED HOLD 22:37 → ORTHO 4S 12-21 20:10
PROVIDERS: ADMIT Internal Medicine; ATTEND Internal Medicine
PROC: BW2F1ZZ Computerized Tomography (CT Scan) of Neck using Low Osmolar Contrast (ICD-10-PCS; principal; 2021-12-20)
DX: A41.9 Sepsis, unspecified organism (principal); L03.221 Cellulitis of neck; K12.2 Cellulitis and abscess of mouth; G89.29 Other chronic pain; M54.9 Dorsalgia, unspecified; Z60.2 Problems related to living alone; F41.9 Anxiety disorder, unspecified; F10.20 Alcohol dependence, uncomplicated; R13.10 Dysphagia, unspecified; I48.91 Unspecified atrial fibrillation; I10 Essential (primary) hypertension; Z87.891 Personal history of nicotine dependence; Z90.49 Acquired absence of other specified parts of digestive tract; Z90.710 Acquired absence of both cervix and uterus; Z88.5 Allergy status to narcotic agent; Z79.899 Other long term (current) drug therapy
CPT/HCPCS: 36415; 70491; 80053; 82948; 83605; 83735; 84132; 84145; 85007; 85025; 87040; 87077; 87081; 87186; 94640; 94760; 99285; A6212; G0378; J0295; J1650; J2270; J3370; J3475; J3490; J7030; J7040; Q9967

== ENCOUNTER 2022-01-28 01:40 | Emergency (ER) | payer MEDICARE, MEDICAID ==
[~2022-01-28] VITALS: Ht 175.3 cm; Wt 81.8 kg
[~2022-01-28 01:40] MED LIST changes: +ALBU2.5V10 NEB; +AMIO200T61 PO; +APIX5TAB3 PO; +ASCO500T23 PO; +ASPI-1265 PO; +ATOR20TA66 PO; +ATR0.5NEB INH; -CLON0.1T2 PO; +DULO30CA52 PO; -DULO60CA65 PO; +FERR325T7 PO; +FOLI1TAB27 PO; +HYDR28CR14 TOP; +NICO-631 TD; +THIA100T66 PO
[2022-01-28] MEDS ORDERED: HYDROcodone/acetaminophen 10/325mg tab PO ONE (04:45)
[2022-01-28] MEDS ORDERED: HYDR-3972 PO (07:00)
[2022-01-28] MEDS ORDERED: OXYC-138 PO (07:02)
[2022-01-28] MEDS ORDERED: ketorolac trometh. 30mg/ml inj. IV ONE (07:10)
[2022-01-28 07:35] VITALS: BP 168/79
== END 2022-01-28 07:59 | disposition home or self-care (01) ==
LOC: ER 01:40
DX: G89.29 Other chronic pain (principal); M54.50 Low back pain, unspecified; I48.91 Unspecified atrial fibrillation; I10 Essential (primary) hypertension; Z87.81 Personal history of (healed) traumatic fracture; Z72.89 Other problems related to lifestyle; Z90.49 Acquired absence of other specified parts of digestive tract; Z90.710 Acquired absence of both cervix and uterus; Z98.82 Breast implant status; Z79.82 Long term (current) use of aspirin; Z79.899 Other long term (current) drug therapy; Z86.19 Personal history of other infectious and parasitic diseases
CPT/HCPCS: 96374; 99285; J1885

== ENCOUNTER 2022-03-07 11:18 | Emergency (ER) | payer MEDICARE, MEDICAID ==
[~2022-03-07] VITALS: Ht 172.7 cm; Wt 75.0 kg
[~2022-03-07 11:18] MED LIST changes: +OXYC-138 PO
[2022-03-07 11:56] VITALS: BP 134/67
[2022-03-07] MEDS ORDERED: oxyCODONE SR 10mg (sust. release) tab PO ONE (15:40)
[2022-03-07] MEDS ORDERED: oxyCODONE/APAP 10/325mg tablet PO ONE (15:40)
[2022-03-07] MEDS ORDERED: OXYC20TA55 PO (16:04)
[2022-03-07] MEDS ORDERED: PER5325T PO (16:04)
== END 2022-03-07 16:47 | disposition home or self-care (01) ==
LOC: ER 11:18
DX: M46.36 Infection of intervertebral disc (pyogenic), lumbar region (principal); M54.50 Low back pain, unspecified; Z76.0 Encounter for issue of repeat prescription; I10 Essential (primary) hypertension; G89.29 Other chronic pain; Z88.5 Allergy status to narcotic agent; Z98.890 Other specified postprocedural states; Z90.710 Acquired absence of both cervix and uterus
CPT/HCPCS: 99283